=== PATIENT | female | born 1940 | race Hispanic/Latino ===

== ENCOUNTER 2016-07-08 22:41 | Emergency (ER) | payer MEDICARE ==
[2016-07-08] MEDS ORDERED: PROVENTIL IH ONE (23:08)
[2016-07-08] MEDS ORDERED: ATROVENT IH ONE (23:08)
[2016-07-08] MEDS ORDERED: DIOVAN PO ONE (23:28)
--- NOTE | 2016-07-08 23:31 | Emergency Department Report ---
ED Shortness of Breath HPI - General Chief Complaint: Dyspnea/Respdistress Stated Complaint: DIFFICULTY IN BREATHING Time Seen by Provider: 07/08/16 23:00 Source: patient Mode of arrival: Stretcher Limitations: No Limitations - History of Present Illness Initial Comments: This is a 75-year-old female with a long standing history of COPD. She uses albuterol as well as other medications by nebulizer as well as I puffer at home. She has when necessary oxygen available to her home as well. She states anxiety is main trigger for her dyspnea. She states she has been compliant on her inhaled meds. She is not chronically on oral steroids. She denies any chest pains associated with this states she is feeling well earlier in the day. EMS indicated that she had O2 saturation 75% when they arrived on scene and found her quite dyspneic. She quickly improved with treatment and regular as well as steroids. She reports feeling quite comfortable at this time. MD Complaint: shortness of breath -: Gradual Known History Of: COPD Associated Symptoms: denies other symptoms - Related Data Home Medications Medication Instructions Recorded Confirmed Last Taken ALBUTEROL Inhaler [ProAir HFA 1 puff IH QDAY 02/08/13 01/09/14 01/08/14 Inhaler] Carvedilol [Coreg] 3.125 mg PO BID 02/08/13 01/09/14 01/08/14 Esomeprazole Magnesium [NexIUM] 40 mg PO QDAY 02/08/13 01/09/14 01/09/14 Fluticasone/Salmeterol(Nf) [Advair 1 puff PO BID 02/08/13 01/09/14 02/11/13 09: 00 HFA 115-21 mcg] Hydrocodone Bit/Acetaminophen 1 each PO QDAY PRN 02/08/13 01/09/14 01/08/14 [Lortab 7.5-500 mg] Montelukast [Singulair] 10 mg PO QPM 02/08/13 01/09/14 01/08/14 PARoxetine [Paxil] 20 mg PO DAILY 02/08/13 01/09/14 01/08/14 Prednisone [predniSONE 10 mg 10 mg PO QDAY 02/08/13 01/09/14 02/08/13 09:00 (6-Day Pack, 21 Tabs)] Quinapril/Hydrochlorothiazide 1 each PO QDAY 02/08/13 01/09/14 01/08/14 [Quinapril-Hctz 20-12.5 mg Tab] metFORMIN [Glucophage] 500 mg PO BID 02/08/13 01/09/14 01/08/14 Previous Rx's Medication Instructions Recorded Last Taken Type HYDROcodone/APAP 5-325 [[place] 1 each PO Q6HR PRN #20 tablet 04/11/13 Unknown Rx 5/325 mg] Ipratropium/Albuterol Sulfate 1 ampul IH Q8HRT #60 ampul.neb 04/11/13 Unknown Rx [Duoneb 0.5 mg-3 mg/3 ml Soln] Prednisone 40 mg PO QDAY #10 tablet 04/11/13 Unknown Rx Ondansetron [Zofran Odt] 4 mg PO Q6H PRN #10 tab.rapdis 01/09/14 Unknown Rx Sucralfate [Carafate] 1 gm PO Q6HR #40 tablet 01/09/14 Unknown Rx Doxycycline [Vibramycin CAP] 100 mg PO BID #14 capsule 07/08/16 Unknown Rx Prednisone [predniSONE 5 mg (6-Day 5 mg PO .TAPER #1 tab.ds.pk 07/08/16 Unknown Rx Pack, 21 Tabs)] Allergies Allergy/AdvReac Type Severity Reaction Status Date / Time promethazine HCl AdvReac LEG PAIN Verified 07/08/16 22:48 [From Phenergan] ED Review of Systems ROS: Stated complaint: DIFFICULTY IN BREATHING Other details as noted in HPI Comment: All other systems reviewed and negative Constitutional: denies: chills, fever Eyes: denies: eye pain, eye discharge, vision change ENT: denies: ear pain, throat pain Respiratory: shortness of breath, SOB with exertion. 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) Hx COPD: Yes (FOR YRS, USES O2 2L N/C AT BEDTIME) - Surgical History Past Surgical History?: Yes Hx Cholecystectomy: Yes (IN THE ) Hx Breast Surgery: Yes (RIGHT BREAST STERIOTACTIC BX IN 2012) - Social History Smoking Status: Never Smoker Substance Use Type: None - Medications Home Medications: Home Medications Medication Instructions Recorded Confirmed Last Taken Type ALBUTEROL Inhaler [ProAir HFA 1 puff IH QDAY 02/08/13 01/09/14 01/08/14 History Inhaler] Carvedilol [Coreg] 3.125 mg PO BID 02/08/13 01/09/14 01/08/14 History Esomeprazole Magnesium [NexIUM] 40 mg PO QDAY 02/08/13 01/09/14 01/09/14 History Fluticasone/Salmeterol(Nf) [Advair 1 puff PO BID 02/08/13 01/09/14 02/11/13 09: 00 History HFA 115-21 mcg] Hydrocodone Bit/Acetaminophen 1 each PO QDAY PRN 02/08/13 01/09/14 01/08/14 History [Lortab 7.5-500 mg] Montelukast [Singulair] 10 mg PO QPM 02/08/13 01/09/14 01/08/14 History PARoxetine [Paxil] 20 mg PO DAILY 02/08/13 01/09/14 01/08/14 History Prednisone [predniSONE 10 mg 10 mg PO QDAY 02/08/13 01/09/14 02/08/13 09:00 History (6-Day Pack, 21 Tabs)] Quinapril/Hydrochlorothiazide 1 each PO QDAY 02/08/13 01/09/14 01/08/14 History [Quinapril-Hctz 20-12.5 mg Tab] metFORMIN [Glucophage] 500 mg PO BID 02/08/13 01/09/14 01/08/14 History HYDROcodone/APAP 5-325 [[place] 1 each PO Q6HR PRN #20 tablet 04/11/13 01/09/14 Unknown Rx 5/325 mg] Ipratropium/Albuterol Sulfate 1 ampul IH Q8HRT #60 ampul.neb 04/11/13 01/09/14 Unknown Rx [Duoneb 0.5 mg-3 mg/3 ml Soln] Prednisone 40 mg PO QDAY #10 tablet 04/11/13 01/09/14 Unknown Rx Ondansetron [Zofran Odt] 4 mg PO Q6H PRN #10 tab.rapdis 01/09/14 Unknown Rx Sucralfate [Carafate] 1 gm PO Q6HR #40 tablet 01/09/14 Unknown Rx Doxycycline [Vibramycin CAP] 100 mg PO BID #14 capsule 07/08/16 Unknown Rx Prednisone [predniSONE 5 mg (6-Day 5 mg PO .TAPER #1 tab.ds.pk 07/08/16 Unknown Rx Pack, 21 Tabs)] ED Physical Exam - General Limitations: No Limitations General appearance: alert, in no apparent distress - Head Head exam: Present: atraumatic, normocephalic - Eye Eye exam: Present: normal appearance - ENT ENT exam: Present: mucous membranes moist - Neck Neck exam: Present: normal inspection - Respiratory Respiratory exam: Present: decreased breath sounds (mild diminished in base bilat). Absent: respiratory distress, wheezes - Cardiovascular Cardiovascular Exam: Present: regular rate, normal rhythm. Absent: systolic murmur, diastolic murmur, rubs, gallop - GI/Abdominal GI/Abdominal exam: Present: soft, normal bowel sounds. Absent: distended, tenderness - Extremities Exam Extremities exam: Present: normal inspection. Absent: tenderness, pedal edema, calf tenderness - Back Exam Back exam: Present: normal inspection. Absent: tenderness, CVA tenderness (R), CVA tenderness (L) - Neurological Exam Neurological exam: Present: alert, oriented X3, other (nml strength in all extremities) - Psychiatric Psychiatric exam: Present: normal affect, normal mood - Skin Skin exam: Present: warm, dry, intact, normal color. Absent: rash ED Course Vital Signs 07/08/16 07/08/16 07/08/16 23:02 23:03 23:10 Temperature 98.8 F Pulse Rate 85 102 H Respiratory 11 L 21 20 Rate Blood Pressure Blood Pressure 123/64 [Left] O2 Sat by Pulse 97 97 96 Oximetry 07/08/16 07/08/16 07/08/16 23:11 23:15 23:21 Temperature Pulse Rate 101 H 100 H 99 H Respiratory 17 17 Rate Blood Pressure Blood Pressure [Left] O2 Sat by Pulse 94 94 Oximetry 07/08/16 07/08/16 07/08/16 23:31 23:41 23:51 Temperature Pulse Rate 96 H 94 H 95 H Respiratory 29 H 27 H 26 H Rate Blood Pressure 162/51 162/51 158/41 Blood Pressure [Left] O2 Sat by Pulse 94 96 95 Oximetry 07/08/16 23:52 Temperature Pulse Rate 95 H Respiratory Rate Blood Pressure 158/91 Blood Pressure [Left] O2 Sat by Pulse Oximetry - Reevaluation(s) Reevaluation #1: 07/08/16 23:34 Patient is quite comfortable upon my examination of her. She has O2 saturation 95% on room air. She does subjectively feel improved with the O2 nasal cannula though. We will repeat a troponin treatment here. Will obtain some baseline labs and chest x-ray as well. Reevaluation #2: 07/08/16 23:34 ECG at 2316 with normal sinus rhythm at 95 bpm with a normal UT and QRS. Left axis is noted. Is noted to have left anterior fascicular block. LVH is noted. There is some nonspecific ST changes noted as well. No acute STEMI. Reevaluation #3: 07/08/16 23:56 Chest x-ray as noted. Labs are noted as well. White blood cell count is slightly elevated with slight shift. Will place on antibiotic as there may be an exacerbation etiology from an infectious standpoint. Patient is afebrile here however. I suspect likely multifactorial etiology. Regardless patient does not have an oxygen requirement anymore here feel she is safe for home. She also has oxygen available home as well as her medications at home. I did strongly encourage her to consider a medic alert bracelet. I did provide some information on how to obtain this. She will require some help from children to perform this task. She indicates that she can do this. ED Medical Decision Making - Lab Data Result diagrams: 07/08/16 23:16 07/08/16 23:16 - Radiology Data interpreted by me: Mild atelectasis right base. Otherwise mild COPD changes noted. Stable chest. Critical care attestation.: If time is entered above; I have spent that time in minutes in the direct care of this critically ill patient, excluding procedure time. ED Disposition Clinical Impression: COPD with exacerbation Disposition: DISCHARGED TO HOME OR SELFCARE Is pt being admited?: No Does the pt Need Aspirin: No Condition: Stable Instructions: Chronic Obstructive Pulmonary Disease (ED) Additional Instructions: Follow with your doctor later this week regarding your lungs. Return if worsening. Continue to use your inhalers or nebulizers as needed. Use your oxygen as needed. I would encourage you to consider a medic alert bracelet. There are many companies who provide this service. Here are a couple of websites you can have your kids help you review. [email or web address] Prescriptions: Doxycycline [Vibramycin CAP] 100 mg PO BID #14 capsule Prednisone [predniSONE 5 mg (6-Day Pack, 21 Tabs)] 5 mg PO .TAPER #1 tab.ds.pk Time of Disposition: 23:59
[2016-07-08 23:32] LABS: Basophils % (Auto) 0.6 % (0.0-1.8); Eosinophils % (Auto) 0.9 % (0.0-4.3); Hemoglobin 13.5 gm/dl (10.1-14.3); Mean Corpuscular HGB Conc 32 % (30-34); Mean Corpuscular Hemoglobin 27 pg (28-32); Mean Corpuscular Volume 83 fl (79-97); Platelet Count 203 K/mm3 (140-440); Red Blood Count 5.09 M/mm3 (3.65-5.03); Red Cell Distribution Width 16.1 % (13.2-15.2); White Blood Count 11.8 K/mm3 (4.5-11.0)
[2016-07-08 23:49] LABS: Anion Gap 17 mmol/L; BUN/Creatinine Ratio 17.14; Blood Urea Nitrogen 12 mg/dL (7-17); Calcium 9.3 mg/dL (8.4-10.2); Carbon Dioxide 29 mmol/L (22-30); Chloride 92.7 mmol/L (98-107); Glucose 144 mg/dL (65-100); Sodium 135 mmol/L (137-145)
[2016-07-08] MEDS ORDERED: VIBRAMYCIN PO ONE (23:57)
[2016-07-09 00:13] VITALS: BP 122/55
--- NOTE | 2016-07-09 08:56 | XRay Report ---
PORTABLE CHEST INDICATION: Dyspnea. COMPARISON: 04/11/2013 CXR and interval [address] findings. FINDINGS: Portable, frontal chest radiograph demonstrates grossly stable cardiomediastinal silhouette and slight poor inspiration with increased prominence/crowding of increased interstitial markings. Pulmonary arterial hypertension suspected. Slight aortic knob calcifications. No pleural effusions or CHF. Mild biapical scarring or pleural thickening. EKG leads. Demineralized bones with stable chronic right humeral head and neck deformity/fracture. CONCLUSION: No significant acute chest process or interval change, allowing for the difference in technique with various incidental findings, as above. Please correlate. Thank you for the opportunity to participate in this patient's care.
== END 2016-07-09 00:20 | disposition home or self-care (01) ==
LOC: ED 22:41
DX: J44.1 Chronic obstructive pulmonary disease with (acute) exacerbation (principal); I10 Essential (primary) hypertension; E11.9 Type 2 diabetes mellitus without complications; M19.90 Unspecified osteoarthritis, unspecified site; J45.909 Unspecified asthma, uncomplicated; Z88.8 Allergy status to other drugs, medicaments and biological substances
CPT/HCPCS: 36415; 71010; 80048; 85025; 93005; 93010; 94640

== ENCOUNTER 2016-12-19 13:18 | Emergency (ER) | payer MEDICARE ==
[2016-12-19 14:52] LABS: Basophils % (Auto) 1.1 % (0.0-1.8); Eosinophils % (Auto) 3.2 % (0.0-4.3); Hematocrit 43.7 % (30.3-42.9); Mean Corpuscular HGB Conc 32 % (30-34); Mean Corpuscular Hemoglobin 26 pg (28-32); Mean Corpuscular Volume 82 fl (79-97); Platelet Count 230 K/mm3 (140-440); Red Blood Count 5.34 M/mm3 (3.65-5.03); Red Cell Distribution Width 18.1 % (13.2-15.2); White Blood Count 8.3 K/mm3 (4.5-11.0)
--- NOTE | 2016-12-19 15:20 | XRay Report ---
CHEST 2 VIEWS INDICATION: Chest pain. COMPARISON: 07/08/2016 FINDINGS: PA and lateral chest radiographs demonstrate stable cardiomediastinal silhouette. Mild biapical scarring/pleural thickening. Hyperexpanded lungs with slight chronic interstitial prominence. Stable demineralized bones with mild thoracic kyphosis, mild degenerative spurring and chronic right humeral head deformity. CONCLUSION: No acute chest process or significant interval change with possible underlying COPD and few other findings, as above. Thank you for the opportunity to participate in this patient's care.
[2016-12-19 15:22] LABS: Anion Gap 17 mmol/L; Blood Urea Nitrogen 9 mg/dL (7-17); Calcium 9.7 mg/dL (8.4-10.2); Carbon Dioxide 26 mmol/L (22-30); Chloride 94.8 mmol/L (98-107); Glucose 94 mg/dL (65-100); Potassium 4.1 mmol/L (3.6-5.0); Sodium 134 mmol/L (137-145)
[2016-12-19] MEDS ORDERED: PROVENTIL IH ONE ×4 (15:38→22:52)
[2016-12-19] MEDS ORDERED: ATROVENT IH ONE ×2 (15:38→18:30)
[2016-12-19] MEDS ORDERED: DUONEB *Not for PRN Use IH ONE (16:27)
[2016-12-19] MEDS ORDERED: DELTASONE PO ONE (20:47)
[2016-12-19] MEDS ORDERED: TESSALON PERLES PO ONE (20:47)
--- NOTE | 2016-12-19 21:49 | Emergency Department Report ---
ED Shortness of Breath HPI - General Chief Complaint: Chest Pain Stated Complaint: ASTHMA/COPD Time Seen by Provider: 12/19/16 20:16 Source: patient Mode of arrival: Ambulatory Limitations: No Limitations - History of Present Illness Initial Comments: 76-year-old female with a past medical history of asthma, COPD, diabetes, and hypertension presents to the Hospital complaining of shortness of breath. Patient has had dyspnea on exertion for 5-6 months and chronic dry cough. Symptoms worsened today. No complaints of chest pain at this time. The patient is not currently taking steroids. Denies history of previous intubations, fever, calf tenderness, or edema. As per triage patient complained of 5/10 posterior chest pain but denies pain at this time. - Related Data Home Medications Medication Instructions Recorded Confirmed Last Taken ALBUTEROL Inhaler [ProAir HFA 1 puff IH QDAY 02/08/13 01/09/14 01/08/14 Inhaler] Carvedilol [Coreg] 3.125 mg PO BID 02/08/13 01/09/14 01/08/14 Esomeprazole Magnesium [NexIUM] 40 mg PO QDAY 02/08/13 01/09/14 01/09/14 Fluticasone/Salmeterol(Nf) [Advair 1 puff PO BID 02/08/13 01/09/14 02/11/13 09: 00 HFA 115-21 mcg] Hydrocodone Bit/Acetaminophen 1 each PO QDAY PRN 02/08/13 01/09/14 01/08/14 [Lortab 7.5-500 mg] Montelukast [Singulair] 10 mg PO QPM 02/08/13 01/09/14 01/08/14 PARoxetine [Paxil] 20 mg PO DAILY 02/08/13 01/09/14 01/08/14 Prednisone [predniSONE 10 mg 10 mg PO QDAY 02/08/13 01/09/14 02/08/13 09:00 (6-Day Pack, 21 Tabs)] Quinapril/Hydrochlorothiazide 1 each PO QDAY 02/08/13 01/09/14 01/08/14 [Quinapril-Hctz 20-12.5 mg Tab] metFORMIN [Glucophage] 500 mg PO BID 02/08/13 01/09/14 01/08/14 Previous Rx's Medication Instructions Recorded Last Taken Type HYDROcodone/APAP 5-325 [Street 1 each PO Q6HR PRN #20 tablet 04/11/13 Unknown Rx 5/325 mg] Ipratropium/Albuterol Sulfate 1 ampul IH Q8HRT #60 ampul.neb 04/11/13 Unknown Rx [DUONEB *Not for PRN Use*] Prednisone 40 mg PO QDAY #10 tablet 04/11/13 Unknown Rx Ondansetron [Zofran Odt] 4 mg PO Q6H PRN #10 tab.rapdis 01/09/14 Unknown Rx Sucralfate [Carafate] 1 gm PO Q6HR #40 tablet 01/09/14 Unknown Rx Doxycycline [Vibramycin CAP] 100 mg PO BID #14 capsule 07/08/16 Unknown Rx Prednisone [predniSONE 5 mg (6-Day 5 mg PO .TAPER #1 tab.ds.pk 07/08/16 Unknown Rx Pack, 21 Tabs)] Benzonatate [Tessalon Perles] 100 mg PO Q8HR PRN #30 capsule 12/20/16 Unknown Rx Prednisone [predniSONE 10 mg 10 mg PO .TAPER #1 tab.ds.pk 12/20/16 Unknown Rx (6-Day Pack, 21 Tabs)] Allergies Allergy/AdvReac Type Severity Reaction Status Date / Time promethazine HCl AdvReac LEG PAIN Verified 07/08/16 22:48 [From Phenergan] ED Review of Systems ROS: Stated complaint: ASTHMA/COPD Other details as noted in HPI Comment: All other systems reviewed and negative Other: Constitutional: No fevers chills Eyes: No eye pain visual changes ENT: No ear pain or throat pain Neck: Denies pain Respiratory: As per HPI Cardiovascular: Denies palpitations, syncope GI: Denies abdominal pain, nausea, vomiting, diarrhea : Denies dysuria Musculoskeletal: Denies back pain Skin: Denies rash, lesions, erythema Neurologic: Denies headache, numbness, weakness Psychiatric: Denies suicidal ideation, hallucinations ED Past Medical Hx - Past Medical History Hx Hypertension: Yes (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) Hx COPD: Yes (FOR YRS, USES O2 2L N/C AT BEDTIME) - Surgical History Hx Cholecystectomy: Yes (IN THE ) Hx Breast Surgery: Yes (RIGHT BREAST STERIOTACTIC BX IN 2013) - Social History Smoking Status: Never Smoker Substance Use Type: None - Medications Home Medications: Home Medications Medication Instructions Recorded Confirmed Last Taken Type ALBUTEROL Inhaler [ProAir HFA 1 puff IH QDAY 02/08/13 01/09/14 01/08/14 History Inhaler] Carvedilol [Coreg] 3.125 mg PO BID 02/08/13 01/09/14 01/08/14 History Esomeprazole Magnesium [NexIUM] 40 mg PO QDAY 02/08/13 01/09/14 01/09/14 History Fluticasone/Salmeterol(Nf) [Advair 1 puff PO BID 02/08/13 01/09/14 02/11/13 09: 00 History HFA 115-21 mcg] Hydrocodone Bit/Acetaminophen 1 each PO QDAY PRN 02/08/13 01/09/14 01/08/14 History [Lortab 7.5-500 mg] Montelukast [Singulair] 10 mg PO QPM 02/08/13 01/09/14 01/08/14 History PARoxetine [Paxil] 20 mg PO DAILY 02/08/13 01/09/14 01/08/14 History Prednisone [predniSONE 10 mg 10 mg PO QDAY 02/08/13 01/09/14 02/08/13 09:00 History (6-Day Pack, 21 Tabs)] Quinapril/Hydrochlorothiazide 1 each PO QDAY 02/08/13 01/09/14 01/08/14 History [Quinapril-Hctz 20-12.5 mg Tab] metFORMIN [Glucophage] 500 mg PO BID 02/08/13 01/09/14 01/08/14 History HYDROcodone/APAP 5-325 [Street 1 each PO Q6HR PRN #20 tablet 04/11/13 01/09/14 Unknown Rx 5/325 mg] Ipratropium/Albuterol Sulfate 1 ampul IH Q8HRT #60 ampul.neb 04/11/13 01/09/14 Unknown Rx [DUONEB *Not for PRN Use*] Prednisone 40 mg PO QDAY #10 tablet 04/11/13 01/09/14 Unknown Rx Ondansetron [Zofran Odt] 4 mg PO Q6H PRN #10 tab.rapdis 01/09/14 Unknown Rx Sucralfate [Carafate] 1 gm PO Q6HR #40 tablet 01/09/14 Unknown Rx Doxycycline [Vibramycin CAP] 100 mg PO BID #14 capsule 07/08/16 Unknown Rx Prednisone [predniSONE 5 mg (6-Day 5 mg PO .TAPER #1 tab.ds.pk 07/08/16 Unknown Rx Pack, 21 Tabs)] Benzonatate [Tessalon Perles] 100 mg PO Q8HR PRN #30 capsule 12/20/16 Unknown Rx Prednisone [predniSONE 10 mg 10 mg PO .TAPER #1 tab.ds.pk 12/20/16 Unknown Rx (6-Day Pack, 21 Tabs)] ED Physical Exam - General Limitations: No Limitations - Other Other exam information: General: No limitations, patient is alert in no acute distress Head exam: Atraumatic, normocephalic Eyes exam: Normal appearance ENT: Moist mucous membrane, normal oropharynx Neck exam: Normal inspection, full range of motion, no meningismus nontender Respiratory exam: Diminished breath sounds after receiving nebs, no wheezes, rales, or crackles. Frequent dry cough Cardiovascular: Normal rate and rhythm Abdomen: Soft, nondistended, and nontender, with normal bowel sounds, no rebound, or guarding Extremity: Full range of motion normal inspection no deformity Back: Normal Inspection, full range of motion, no tenderness Neurologic: Alert, oriented x3, cranial nerves intact, no motor or sensory deficit Psychiatric: normal affect, normal mood Skin: Warm, dry, intact ED Course Vital Signs 12/19/16 12/19/16 12/19/16 14:29 20:56 21:16 Temperature 98.2 F Pulse Rate 76 Pulse Rate [ 87 92 H Anterior Bilateral Throughout] Respiratory 16 Rate Respiratory 18 20 Rate [Anterior Bilateral Throughout] Blood Pressure 134/84 Blood Pressure [Left] O2 Sat by Pulse 96 Oximetry 12/20/16 00:33 Temperature 98.6 F Pulse Rate 86 Pulse Rate [ Anterior Bilateral Throughout] Respiratory 18 Rate Respiratory Rate [Anterior Bilateral Throughout] Blood Pressure Blood Pressure 140/86 [Left] O2 Sat by Pulse 96 Oximetry - Reevaluation(s) Reevaluation #1: 12/20/16 06:07 Patient received treatment for COPD exacerbation. No acute distress noted. Patient refused admission but states she wanted to stay to the morning. Patient be discharged at this time. ED Medical Decision Making - Lab Data Result diagrams: 12/19/16 14:38 12/19/16 14:38 Lab Results 12/19/16 12/19/16 12/19/16 Range/Units 14:38 14:38 17:08 WBC 8.3 (4.5-11.0) K/mm3 RBC 5.34 H (3.65-5.03) M/mm3 Hgb 14.0 (10.1-14.3) gm/dl Hct 43.7 H (30.3-42.9) % MCV 82 (79-97) fl MCH 26 L (28-32) pg MCHC 32 (30-34) % RDW 18.1 H (13.2-15.2) % Plt Count 230 (140-440) K/mm3 Lymph % (Auto) 17.9 (13.4-35.0) % Haines % (Auto) 6.5 (0.0-7.3) % Eos % (Auto) 3.2 (0.0-4.3) % Baso % (Auto) 1.1 (0.0-1.8) % Lymph # 1.5 (1.2-5.4) K/mm3 Haines # 0.5 (0.0-0.8) K/mm3 Eos # 0.3 (0.0-0.4) K/mm3 Baso # 0.1 (0.0-0.1) K/mm3 Seg Neutrophils % 71.3 H (40.0-70.0) % Seg Neutrophils # 5.9 (1.8-7.7) K/mm3 Sodium 134 L (137-145) mmol/L Potassium 4.1 (3.6-5.0) mmol/L Chloride 94.8 L (98-107) mmol/L Carbon Dioxide 26 (22-30) mmol/L Anion Gap 17 mmol/L BUN 9 (7-17) mg/dL Creatinine 0.6 L (0.7-1.2) mg/dL Estimated GFR > 60 ml/min BUN/Creatinine Ratio 15.00 % Glucose 94 (65-100) mg/dL Calcium 9.7 (8.4-10.2) mg/dL Troponin T < 0.010 < 0.010 (0.00-0.029) ng/mL 12/19/16 Range/Units 21:41 WBC (4.5-11.0) K/mm3 RBC (3.65-5.03) M/mm3 Hgb (10.1-14.3) gm/dl Hct (30.3-42.9) % MCV (79-97) fl MCH (28-32) pg MCHC (30-34) % RDW (13.2-15.2) % Plt Count (140-440) K/mm3 Lymph % (Auto) (13.4-35.0) % Haines % (Auto) (0.0-7.3) % Eos % (Auto) (0.0-4.3) % Baso % (Auto) (0.0-1.8) % Lymph # (1.2-5.4) K/mm3 Haines # (0.0-0.8) K/mm3 Eos # (0.0-0.4) K/mm3 Baso # (0.0-0.1) K/mm3 Seg Neutrophils % (40.0-70.0) % Seg Neutrophils # (1.8-7.7) K/mm3 Sodium (137-145) mmol/L Potassium (3.6-5.0) mmol/L Chloride (98-107) mmol/L Carbon Dioxide (22-30) mmol/L Anion Gap mmol/L BUN (7-17) mg/dL Creatinine (0.7-1.2) mg/dL Estimated GFR ml/min BUN/Creatinine Ratio % Glucose (65-100) mg/dL Calcium (8.4-10.2) mg/dL Troponin T < 0.010 (0.00-0.029) ng/mL - EKG Data -: EKG Interpreted by Me (sinus rhythm rate 69, LVH, re-pole, no STEMI) - EKG Data 12/20/16 06:08 Repeat EKG shows no acute changes. No STEMI - Radiology Data Radiology results: report reviewed (chest x-ray: No acute findings without COPD) - Medical Decision Making Patient treated in the ED for acute COPD exacerbation and declined admission. She will be discharged with COPD exacerbation meds - Differential Diagnosis COPD, asthma, CHF, pneumonia Critical Care Time: No Critical care attestation.: If time is entered above; I have spent that time in minutes in the direct care of this critically ill patient, excluding procedure time. ED Disposition Clinical Impression: COPD exacerbation Disposition: - TO HOME OR SELFCARE Is pt being admited?: No Does the pt Need Aspirin: No Condition: Stable Instructions: Chronic Obstructive Pulmonary Disease (ED) Additional Instructions: Take the medication as prescribed. Follow up with your doctor. Return if symptoms worsen. Prescriptions: Benzonatate [Tessalon Perles] 100 mg PO Q8HR PRN #30 capsule PRN Reason: Cough Prednisone [predniSONE 10 mg (6-Day Pack, 21 Tabs)] 10 mg PO .TAPER #1 tab.ds.pk Referrals: HEIDY WATSON MD [Primary Care Provider] - 2-3 Days Time of Disposition: 06:10
[2016-12-19] MEDS ORDERED: MAGNESIUM SULFATE 2GM/50ML 2 GM/50 ML BAG IV ONE (22:51)
[2016-12-20 06:09] VITALS: BP 130/78
== END 2016-12-20 06:51 | disposition home or self-care (01) ==
LOC: ED 13:18
DX: J44.1 Chronic obstructive pulmonary disease with (acute) exacerbation (principal); I10 Essential (primary) hypertension; E11.9 Type 2 diabetes mellitus without complications; M19.90 Unspecified osteoarthritis, unspecified site; Z88.8 Allergy status to other drugs, medicaments and biological substances
CPT/HCPCS: 36415; 71020; 80048; 84484; 85025; 93005; 93010; 94640; 96365; 99285; J3475; J7512

== ENCOUNTER 2017-01-10 17:02 | Emergency (ER) | payer MEDICARE ==
[2017-01-10 19:03] LABS: Mean Corpuscular HGB Conc 33 % (30-34); Mean Corpuscular Hemoglobin 27 pg (28-32); Mean Corpuscular Volume 81 fl (79-97); Platelet Count 239 K/mm3 (140-440); Red Cell Distribution Width 16.8 % (13.2-15.2); White Blood Count 11.8 K/mm3 (4.5-11.0)
[2017-01-10 19:13] LABS: Alanine Aminotransferase 15 units/L (7-56); Albumin 3.8 g/dL (3.9-5); Alkaline Phosphatase 102 units/L (35-129); Anion Gap 17 mmol/L; BUN/Creatinine Ratio 18; Blood Urea Nitrogen 11 mg/dL (7-17); Calcium 9.5 mg/dL (8.4-10.2); Carbon Dioxide 27 mmol/L (22-30); Glucose 138 mg/dL (65-100); Lipase 42 units/L (13-60); Sodium 137 mmol/L (137-145); Total Protein 7.5 g/dL (6.3-8.2)
[2017-01-10 19:14] LABS: INR 1.07 (0.87-1.13)
[2017-01-10 19:20] LABS: Creatine Kinase 71 units/L (30-135); Creatine Kinase MB 2.9 ng/mL (0.0-4.0)
[2017-01-10] MEDS ORDERED: PROVENTIL IH ONE (19:47)
[2017-01-10] MEDS ORDERED: ATROVENT IH ONE (19:47)
[2017-01-10 20:01] LABS: Basophils % (Manual) 0 % (0.0-1.8); Blastocytes % (Manual) 0 %; Eosinophils % (Manual) 0 % (0.0-4.3); Total Cells Counted Percent 0
[2017-01-10 20:02] LABS: Diff Status Complete; Ovalocytes Few
--- NOTE | 2017-01-10 20:56 | XRay Report ---
FINAL REPORT PROCEDURE: Chest. TECHNIQUE: Portable AP upright view. HISTORY: Dyspnea. COMPARISON: No prior studies are available for comparison. FINDINGS: The heart size is mildly enlarged. The lungs are clear and mildly hyperinflated. There are no pleural effusions. The soft tissues are unremarkable. There is an old fracture of the right humeral head. This fracture appears ununited and the humeral head is severely deformed. IMPRESSION: Mild cardiomegaly and mild COPD. Chronic ununited right humeral head fracture.
--- NOTE | 2017-01-10 22:32 | Emergency Department Report ---
ED Shortness of Breath HPI - General Chief Complaint: Dyspnea/Respdistress Stated Complaint: LYNDA Time Seen by Provider: 01/10/17 19:41 Source: EMS Mode of arrival: Stretcher Limitations: No Limitations - History of Present Illness Initial Comments: 76-year-old female with a past medical history asthma, COPD (O2 at night), diabetes, and hypertension presents with complaints of shortness of breath since 3:00 today. Patient received solumdrol, magnesium, and albuterol 5 mg prior to arrival with some improvement. Patient complains of chronic unchanged cough occasionally productive. She denies chest pain, fever, calf tenderness, or edema. Last ED visit was one month ago and treated for the same. 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 Wesley - Related Data Home Medications Medication Instructions Recorded Confirmed Last Taken ALBUTEROL Inhaler [ProAir HFA 1 puff IH QDAY 02/08/13 01/09/14 01/08/14 Inhaler] Carvedilol [Coreg] 3.125 mg PO BID 02/08/13 01/09/14 01/08/14 Esomeprazole Magnesium [NexIUM] 40 mg PO QDAY 02/08/13 01/09/14 01/09/14 Fluticasone/Salmeterol(Nf) [Advair 1 puff PO BID 02/08/13 01/09/14 02/11/13 09: 00 HFA 115-21 mcg] Hydrocodone Bit/Acetaminophen 1 each PO QDAY PRN 02/08/13 01/09/14 01/08/14 [Lortab 7.5-500 mg] Montelukast [Singulair] 10 mg PO QPM 02/08/13 01/09/14 01/08/14 PARoxetine [Paxil] 20 mg PO DAILY 02/08/13 01/09/14 01/08/14 Prednisone [predniSONE 10 mg 10 mg PO QDAY 02/08/13 01/09/14 02/08/13 09:00 (6-Day Pack, 21 Tabs)] Quinapril/Hydrochlorothiazide 1 each PO QDAY 02/08/13 01/09/14 01/08/14 [Quinapril-Hctz 20-12.5 mg Tab] metFORMIN [Glucophage] 500 mg PO BID 02/08/13 01/09/14 01/08/14 Previous Rx's Medication Instructions Recorded Last Taken Type HYDROcodone/APAP 5-325 [Kinsley 1 each PO Q6HR PRN #20 tablet 04/11/13 Unknown Rx 5/325 mg] Ipratropium/Albuterol Sulfate 1 ampul IH Q8HRT #60 ampul.neb 04/11/13 Unknown Rx [DUONEB *Not for PRN Use*] Prednisone 40 mg PO QDAY #10 tablet 04/11/13 Unknown Rx Ondansetron [Zofran Odt] 4 mg PO Q6H PRN #10 tab.rapdis 01/09/14 Unknown Rx Sucralfate [Carafate] 1 gm PO Q6HR #40 tablet 01/09/14 Unknown Rx Doxycycline [Vibramycin CAP] 100 mg PO BID #14 capsule 07/08/16 Unknown Rx Prednisone [predniSONE 5 mg (6-Day 5 mg PO .TAPER #1 tab.ds.pk 07/08/16 Unknown Rx Pack, 21 Tabs)] Benzonatate [Tessalon Perles] 100 mg PO Q8HR PRN #30 capsule 12/20/16 Unknown Rx Prednisone [predniSONE 10 mg 10 mg PO .TAPER #1 tab.ds.pk 12/20/16 Unknown Rx (6-Day Pack, 21 Tabs)] Prednisone [predniSONE 10 mg 10 mg PO .TAPER #1 tab.ds.pk 01/10/17 Unknown Rx (6-Day Pack, 21 Tabs)] Allergies Allergy/AdvReac Type Severity Reaction Status Date / Time promethazine HCl AdvReac LEG PAIN Verified 07/08/16 22:48 [From Phenergan] ED Review of Systems ROS: Stated complaint: LYNDA Other details as noted in HPI Comment: All other systems reviewed and negative Other: Constitutional: No fevers chills Eyes: No eye pain visual changes ENT: No ear pain or throat pain Neck: Denies pain Respiratory: As her hpi Cardiovascular: Denies chest pain, palpitations, syncope GI: Denies abdominal pain, nausea, vomiting, diarrhea : Denies dysuria Musculoskeletal: Denies back pain Skin: Denies rash, lesions, erythema Neurologic: Denies headache, numbness, weakness Psychiatric: Denies suicidal ideation, hallucinations ED Past Medical Hx - Past Medical History Hx Hypertension: Yes (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 HELLER- MAILROOM ASSISTANT) Hx Diabetes: Yes (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 BAILEY- SUPERVISOR STAGE CARPENTRY) Hx COPD: Yes (FOR YRS, USES O2 2L N/C AT BEDTIME) - Surgical History Hx Cholecystectomy: Yes (IN THE ) Hx Breast Surgery: Yes (RIGHT BREAST STERIOTACTIC BX IN 2013) - Social History Smoking Status: Never Smoker Substance Use Type: None - Medications Home Medications: Home Medications Medication Instructions Recorded Confirmed Last Taken Type ALBUTEROL Inhaler [ProAir HFA 1 puff IH QDAY 02/08/13 01/09/14 01/08/14 History Inhaler] Carvedilol [Coreg] 3.125 mg PO BID 02/08/13 01/09/14 01/08/14 History Esomeprazole Magnesium [NexIUM] 40 mg PO QDAY 02/08/13 01/09/14 01/09/14 History Fluticasone/Salmeterol(Nf) [Advair 1 puff PO BID 02/08/13 01/09/14 02/11/13 09: 00 History HFA 115-21 mcg] Hydrocodone Bit/Acetaminophen 1 each PO QDAY PRN 02/08/13 01/09/14 01/08/14 History [Lortab 7.5-500 mg] Montelukast [Singulair] 10 mg PO QPM 02/08/13 01/09/14 01/08/14 History PARoxetine [Paxil] 20 mg PO DAILY 02/08/13 01/09/14 01/08/14 History Prednisone [predniSONE 10 mg 10 mg PO QDAY 02/08/13 01/09/14 02/08/13 09:00 History (6-Day Pack, 21 Tabs)] Quinapril/Hydrochlorothiazide 1 each PO QDAY 02/08/13 01/09/14 01/08/14 History [Quinapril-Hctz 20-12.5 mg Tab] metFORMIN [Glucophage] 500 mg PO BID 02/08/13 01/09/14 01/08/14 History HYDROcodone/APAP 5-325 [Kinsley 1 each PO Q6HR PRN #20 tablet 04/11/13 01/09/14 Unknown Rx 5/325 mg] Ipratropium/Albuterol Sulfate 1 ampul IH Q8HRT #60 ampul.neb 04/11/13 01/09/14 Unknown Rx [DUONEB *Not for PRN Use*] Prednisone 40 mg PO QDAY #10 tablet 04/11/13 01/09/14 Unknown Rx Ondansetron [Zofran Odt] 4 mg PO Q6H PRN #10 tab.rapdis 01/09/14 Unknown Rx Sucralfate [Carafate] 1 gm PO Q6HR #40 tablet 01/09/14 Unknown Rx Doxycycline [Vibramycin CAP] 100 mg PO BID #14 capsule 07/08/16 Unknown Rx Prednisone [predniSONE 5 mg (6-Day 5 mg PO .TAPER #1 tab.ds.pk 07/08/16 Unknown Rx Pack, 21 Tabs)] Benzonatate [Tessalon Perles] 100 mg PO Q8HR PRN #30 capsule 12/20/16 Unknown Rx Prednisone [predniSONE 10 mg 10 mg PO .TAPER #1 tab.ds.pk 12/20/16 Unknown Rx (6-Day Pack, 21 Tabs)] Prednisone [predniSONE 10 mg 10 mg PO .TAPER #1 tab.ds.pk 01/10/17 Unknown Rx (6-Day Pack, 21 Tabs)] ED Physical Exam - General Limitations: No Limitations - Other Other exam information: General: No limitations, patient is alert in no acute distress Head exam: Atraumatic, normocephalic Eyes exam: Normal appearance, pupils equal reactive to light, extraocular movements intact ENT: Moist mucous membrane, normal oropharynx Neck exam: Normal inspection, full range of motion, no meningismus nontender Respiratory exam: Bilateral expiratory wheezing, no tachypnea or accessory muscle use Cardiovascular: Normal rate and rhythm, normal heart sounds Abdomen: Soft, nondistended, and nontender, with normal bowel sounds, no rebound, or guarding Extremity: Full range of motion normal inspection no deformity, no calf tenderness or edema Back: Normal Inspection, full range of motion, no tenderness Neurologic: Alert, oriented x3, cranial nerves intact, no motor or sensory deficit Psychiatric: normal affect, normal mood Skin: Warm, dry, intact ED Course Vital Signs 01/10/17 01/10/17 01/10/17 18:09 19:43 20:03 Temperature 99.3 F 98.5 F Pulse Rate 78 91 H Pulse Rate [ 88 Bilateral] Respiratory 18 18 Rate Respiratory 18 Rate [Bilateral ] Blood Pressure 152/89 Blood Pressure 153/83 [Left] O2 Sat by Pulse 96 97 Oximetry 01/10/17 01/10/17 01/10/17 21:12 21:40 22:44 Temperature 98.3 F Pulse Rate 105 H 100 H Pulse Rate [ 93 H Bilateral] Respiratory 18 18 Rate Respiratory 18 Rate [Bilateral ] Blood Pressure Blood Pressure 91/71 112/67 [Left] O2 Sat by Pulse 98 96 Oximetry - Reevaluation(s) Reevaluation #1: 01/10/17 22:39 After additional albuterol and Atrovent patient is improved and currently wheeze free. She feels well enough to go home ED Medical Decision Making - Lab Data Result diagrams: 01/10/17 18:45 01/10/17 18:45 Lab Results 01/10/17 01/10/17 01/10/17 Range/Units 18:45 18:45 18:45 WBC 11.8 H (4.5-11.0) K/mm3 RBC 5.30 H (3.65-5.03) M/mm3 Hgb 14.0 (10.1-14.3) gm/dl Hct 43.0 H (30.3-42.9) % MCV 81 (79-97) fl MCH 27 L (28-32) pg MCHC 33 (30-34) % RDW 16.8 H (13.2-15.2) % Plt Count 239 (140-440) K/mm3 Add Manual Diff Complete Total Counted 100 Seg Neutrophils % Va Underwriter Seg Neuts % (Manual) 99.0 H (40.0-70.0) % Band Neutrophils % 0 % Lymphocytes % (Manual) 1.0 L (13.4-35.0) % Reactive Lymphs % (Man) 0 % Monocytes % (Manual) 0 (0.0-7.3) % Eosinophils % (Manual) 0 (0.0-4.3) % Basophils % (Manual) 0 (0.0-1.8) % Metamyelocytes % 0 % Myelocytes % 0 % Promyelocytes % 0 % Blast Cells % 0 % Nucleated RBC % Not Reportable Seg Neutrophils # Man 11.7 H (1.8-7.7) K/mm3 Band Neutrophils # 0.0 K/mm3 Lymphocytes # (Manual) 0.1 L (1.2-5.4) K/mm3 Abs React Lymphs (Man) 0.0 K/mm3 Monocytes # (Manual) 0.0 (0.0-0.8) K/mm3 Eosinophils # (Manual) 0.0 (0.0-0.4) K/mm3 Basophils # (Manual) 0.0 (0.0-0.1) K/mm3 Metamyelocytes # 0.0 K/mm3 Myelocytes # 0.0 K/mm3 Promyelocytes # 0.0 K/mm3 Blast Cells # 0.0 K/mm3 WBC Morphology Not Reportable Hypersegmented Neuts Not Reportable Hyposegmented Neuts Not Reportable Hypogranular Neuts Not Reportable Smudge Cells Not Reportable Toxic Granulation Not Reportable Toxic Vacuolation Not Reportable Dohle Bodies Not Reportable Pelger-Huet Anomaly Not Reportable Serena Rods Not Reportable Platelet Estimate Appears normal Clumped Platelets Not Reportable Plt Clumps, EDTA Not Reportable Large Platelets Not Reportable Giant Platelets Not Reportable Platelet Satelliting Not Reportable Plt Morphology Comment Not Reportable RBC Morphology Not Reportable Dimorphic RBCs Not Reportable Polychromasia Not Reportable Hypochromasia Not Reportable Poikilocytosis Not Reportable Anisocytosis Not Reportable Microcytosis Not Reportable Macrocytosis Not Reportable Spherocytes Not Reportable Pappenheimer Bodies Not Reportable Sickle Cells Not Reportable Target Cells Not Reportable Tear Drop Cells Not Reportable Ovalocytes Few Helmet Cells Not Reportable Cerrato-[place] Bodies Not Reportable [place] Rings Not Reportable [place] Cells Not Reportable Bite Cells Not Reportable Crenated Cell Not Reportable Elliptocytes Not Reportable Acanthocytes (Spur) Not Reportable Rouleaux Not Reportable Hemoglobin C Crystals Not Reportable Schistocytes Not Reportable Malaria parasites Not Reportable Marco Bodies Not Reportable Hem Pathologist Commnt No PT (12.2-14.9) Sec. INR (0.87-1.13) APTT (24.2-36.6) Sec. Sodium 137 (137-145) mmol/L Potassium 4.0 (3.6-5.0) mmol/L Chloride 97.0 L (98-107) mmol/L Carbon Dioxide 27 (22-30) mmol/L Anion Gap 17 mmol/L BUN 11 (7-17) mg/dL Creatinine 0.6 L (0.7-1.2) mg/dL Estimated GFR > 60 ml/min BUN/Creatinine Ratio 18 % Glucose 138 H (65-100) mg/dL Lactic Acid 0.90 (0.7-2.0) mmol/L Calcium 9.5 (8.4-10.2) mg/dL Magnesium 2.90 H (1.7-2.3) mg/dL Total Bilirubin 0.40 (0.1-1.2) mg/dL AST 22 (5-40) units/L ALT 15 (7-56) units/L Alkaline Phosphatase 102 (35-129) units/L Total Creatine Kinase (30-135) units/L CK-MB (CK-2) (0.0-4.0) ng/mL CK-MB (CK-2) Rel Index (0-4) Troponin T (0.00-0.029) ng/mL Total Protein 7.5 (6.3-8.2) g/dL Albumin 3.8 L (3.9-5) g/dL Albumin/Globulin Ratio 1.0 % Lipase 42 (13-60) units/L 01/10/17 01/10/17 Range/Units 18:45 18:45 WBC (4.5-11.0) K/mm3 RBC (3.65-5.03) M/mm3 Hgb (10.1-14.3) gm/dl Hct (30.3-42.9) % MCV (79-97) fl MCH (28-32) pg MCHC (30-34) % RDW (13.2-15.2) % Plt Count (140-440) K/mm3 Add Manual Diff Total Counted Seg Neutrophils % Seg Neuts % (Manual) (40.0-70.0) % Band Neutrophils % % Lymphocytes % (Manual) (13.4-35.0) % Reactive Lymphs % (Man) % Monocytes % (Manual) (0.0-7.3) % Eosinophils % (Manual) (0.0-4.3) % Basophils % (Manual) (0.0-1.8) % Metamyelocytes % % Myelocytes % % Promyelocytes % % Blast Cells % % Nucleated RBC % Seg Neutrophils # Man (1.8-7.7) K/mm3 Band Neutrophils # K/mm3 Lymphocytes # (Manual) (1.2-5.4) K/mm3 Abs React Lymphs (Man) K/mm3 Monocytes # (Manual) (0.0-0.8) K/mm3 Eosinophils # (Manual) (0.0-0.4) K/mm3 Basophils # (Manual) (0.0-0.1) K/mm3 Metamyelocytes # K/mm3 Myelocytes # K/mm3 Promyelocytes # K/mm3 Blast Cells # K/mm3 WBC Morphology Hypersegmented Neuts Hyposegmented Neuts Hypogranular Neuts Smudge Cells Toxic Granulation Toxic Vacuolation Dohle Bodies Pelger-Huet Anomaly Serena Rods Platelet Estimate Clumped Platelets Plt Clumps, EDTA Large Platelets Giant Platelets Platelet Satelliting Plt Morphology Comment RBC Morphology Dimorphic RBCs Polychromasia Hypochromasia Poikilocytosis Anisocytosis Microcytosis Macrocytosis Spherocytes Pappenheimer Bodies Sickle Cells Target Cells Tear Drop Cells Ovalocytes Helmet Cells Cerrato-[place] Bodies [place] Rings [place] Cells Bite Cells Crenated Cell Elliptocytes Acanthocytes (Spur) Rouleaux Hemoglobin C Crystals Schistocytes Malaria parasites Marco Bodies Hem Pathologist Commnt PT 14.4 (12.2-14.9) Sec. INR 1.07 (0.87-1.13) APTT 31.0 (24.2-36.6) Sec. Sodium (137-145) mmol/L Potassium (3.6-5.0) mmol/L Chloride (98-107) mmol/L Carbon Dioxide (22-30) mmol/L Anion Gap mmol/L BUN (7-17) mg/dL Creatinine (0.7-1.2) mg/dL Estimated GFR ml/min BUN/Creatinine Ratio % Glucose (65-100) mg/dL Lactic Acid (0.7-2.0) mmol/L Calcium (8.4-10.2) mg/dL Magnesium (1.7-2.3) mg/dL Total Bilirubin (0.1-1.2) mg/dL AST (5-40) units/L ALT (7-56) units/L Alkaline Phosphatase (35-129) units/L Total Creatine Kinase 71 (30-135) units/L CK-MB (CK-2) 2.9 (0.0-4.0) ng/mL CK-MB (CK-2) Rel Index 4.0 (0-4) Troponin T < 0.010 (0.00-0.029) ng/mL Total Protein (6.3-8.2) g/dL Albumin (3.9-5) g/dL Albumin/Globulin Ratio % Lipase (13-60) units/L - EKG Data -: EKG Interpreted by Me EKG shows normal: sinus rhythm (76) Rate: normal - EKG Data When compared to previous EKG there are: previous EKG unavailable - Radiology Data Radiology results: report reviewed (cxr: copd, chronic right humeral fxt, mild cardiomegaly) - Medical Decision Making plan to discharge patient home on steroids and to continue neb treatments at home - Differential Diagnosis COPD, asthma, bronchitis, pneumonia Critical Care Time: No Critical care attestation.: If time is entered above; I have spent that time in minutes in the direct care of this critically ill patient, excluding procedure time. ED Disposition Clinical Impression: COPD exacerbation Disposition: DC-01 TO HOME OR SELFCARE Is pt being admited?: No Condition: Stable Instructions: Chronic Obstructive Pulmonary Disease (ED) Additional Instructions: His ramp when she follow up with her boiler cleaner for further management and adjustment of your medications. Please return if symptoms worsen. Prescriptions: Prednisone [predniSONE 10 mg (6-Day Pack, 21 Tabs)] 10 mg PO .TAPER #1 tab.ds.pk Referrals: PRIMARY CARE, [Primary Care Provider] - 3-5 Days JIM BAILEY MD [Staff Physician] - 3-5 Days Time of Disposition: 22:42
[2017-01-10 22:45] VITALS: BP 112/67
[2017-01-10] MEDS ORDERED: DELTASONE PO ONE (23:42)
== END 2017-01-11 00:24 | disposition home or self-care (01) ==
LOC: ED 17:02
DX: J44.1 Chronic obstructive pulmonary disease with (acute) exacerbation (principal); I10 Essential (primary) hypertension; E11.9 Type 2 diabetes mellitus without complications; M19.90 Unspecified osteoarthritis, unspecified site; Z90.49 Acquired absence of other specified parts of digestive tract
CPT/HCPCS: 36415; 71010; 80053; 82140; 82550; 82553; 83690; 83735; 84484; 85007; 85025; 85610; 85730; 93005; 93010; 94644; 99285; J7512

== ENCOUNTER 2017-06-17 13:34 | Emergency (ER) | payer MEDICARE ==
[2017-06-17 14:12] VITALS: BP 151/88
[2017-06-17] MEDS ORDERED: PROVENTIL IH ONE ×2 (15:46→15:50)
[2017-06-17] MEDS ORDERED: TESSALON PERLES PO ONE (15:50)
[2017-06-17] MEDS ORDERED: DELTASONE PO ONE (15:50)
--- NOTE | 2017-06-17 16:36 | XRay Report ---
FINAL REPORT EXAM: XR CHEST 1V AP HISTORY: cough TECHNIQUE: AP portable view of the chest PRIORS: CXR 01/10/2017 FINDINGS: Lines, tubes, and devices: N/A Lungs and pleura: Trachea is normal in position. Lungs are clear of infiltrate, pleural effusion, vascular congestion, or pneumothorax. No change. Cardiomediastinal silhouette: The heart is enlarged but stable. Other: Bony structures demonstrate a stable chronic right humeral neck fracture. 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 No change. Stable cardiomegaly.
--- NOTE | 2017-06-17 17:01 | Emergency Department Report ---
ED Asthma HPI - General Chief Complaint: Adult Asthma Stated Complaint: LNYDA Time Seen by Provider: 06/17/17 15:27 Source: EMS Mode of arrival: Wheelchair Limitations: Physical Limitation - History of Present Illness Initial Comments: 76-year-old female with past medical history of COPD and asthma comes in today via EMS for wheezing. Patient denies any fever or chills or nausea and vomiting. She reports that she is followed by a lung specialist as well as her primary care provider. Patient is on several asthmatic medications. She has allergy to promethazine. MD Complaint: "asthma attack", wheezing Severity: moderate Context: none known Associated Symptoms: none Treatments Prior to Arrival: inhaled bronchodilator - Related Data Home Medications Medication Instructions Recorded Confirmed Last Taken Carvedilol [Coreg] 3.125 mg PO BID 02/08/13 01/09/14 01/08/14 Esomeprazole Magnesium [NexIUM] 40 mg PO QDAY 02/08/13 01/09/14 01/09/14 Fluticasone/Salmeterol(Nf) [Advair 1 puff PO BID 02/08/13 01/09/14 02/11/13 09: 00 HFA 115-21 mcg] Hydrocodone Bit/Acetaminophen 1 each PO QDAY PRN 02/08/13 01/09/14 01/08/14 [Lortab 7.5-500 mg] Montelukast [Singulair] 10 mg PO QPM 02/08/13 01/09/14 01/08/14 PARoxetine [Paxil] 20 mg PO DAILY 02/08/13 01/09/14 01/08/14 Prednisone [predniSONE 10 mg 10 mg PO QDAY 02/08/13 01/09/14 02/08/13 09:00 (6-Day Pack, 21 Tabs)] Quinapril/Hydrochlorothiazide 1 each PO QDAY 02/08/13 01/09/14 01/08/14 [Quinapril-Hctz 20-12.5 mg Tab] metFORMIN [Glucophage] 500 mg PO BID 02/08/13 01/09/14 01/08/14 Previous Rx's Medication Instructions Recorded Last Taken Type HYDROcodone/APAP 5-325 [Mobridge 1 each PO Q6HR PRN #20 tablet 04/11/13 Unknown Rx 5/325 mg] Ipratropium/Albuterol Sulfate 1 ampul IH Q8HRT #60 ampul.neb 04/11/13 Unknown Rx [DUONEB *Not for PRN Use*] Prednisone 40 mg PO QDAY #10 tablet 04/11/13 Unknown Rx Ondansetron [Zofran Odt] 4 mg PO Q6H PRN #10 tab.rapdis 01/09/14 Unknown Rx Sucralfate [Carafate] 1 gm PO Q6HR #40 tablet 01/09/14 Unknown Rx Doxycycline [Vibramycin CAP] 100 mg PO BID #14 capsule 07/08/16 Unknown Rx Prednisone [predniSONE 5 mg (6-Day 5 mg PO .TAPER #1 tab.ds.pk 07/08/16 Unknown Rx Pack, 21 Tabs)] Benzonatate [Tessalon Perles] 100 mg PO Q8HR PRN #30 capsule 12/20/16 Unknown Rx Prednisone [predniSONE 10 mg 10 mg PO .TAPER #1 tab.ds.pk 12/20/16 Unknown Rx (6-Day Pack, 21 Tabs)] Prednisone [predniSONE 10 mg 10 mg PO .TAPER #1 tab.ds.pk 01/10/17 Unknown Rx (6-Day Pack, 21 Tabs)] ALBUTEROL Inhaler [ProAir HFA 2 puff IH QDAY PRN #1 inha 06/17/17 Unknown Rx Inhaler] methylPREDNISolone [Medrol] 4 mg PO QDAY #1 tab.ds.pk 06/17/17 Unknown Rx Allergies Allergy/AdvReac Type Severity Reaction Status Date / Time promethazine HCl AdvReac LEG PAIN Verified 07/08/16 22:48 [From Phenergan] ED Review of Systems ROS: Stated complaint: LYNDA Other details as noted in HPI Constitutional: denies: chills, fever Eyes: denies: eye pain, eye discharge, vision change ENT: denies: ear pain, throat pain Respiratory: cough, wheezing. denies: shortness of breath Cardiovascular: denies: chest pain, palpitations Endocrine: no symptoms reported Gastrointestinal: denies: abdominal pain, nausea, diarrhea Genitourinary: denies: urgency, dysuria, discharge Musculoskeletal: denies: back pain, joint swelling, arthralgia Skin: denies: rash, lesions Neurological: denies: headache, weakness, paresthesias Psychiatric: denies: anxiety, depression Hematological/Lymphatic: denies: easy bleeding, easy bruising ED Past Medical Hx - Past Medical History Hx Hypertension: Yes (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 BAILEY- COUTURE DRESSMAKER) Hx COPD: Yes (FOR YRS, USES O2 2L N/C AT BEDTIME) - Surgical History Hx Cholecystectomy: Yes (IN THE ) Hx Breast Surgery: Yes (RIGHT BREAST STERIOTACTIC BX IN 2012) - Social History Smoking Status: Never Smoker Substance Use Type: None - Medications Home Medications: Home Medications Medication Instructions Recorded Confirmed Last Taken Type Carvedilol [Coreg] 3.125 mg PO BID 02/08/13 01/09/14 01/08/14 History Esomeprazole Magnesium [NexIUM] 40 mg PO QDAY 02/08/13 01/09/14 01/09/14 History Fluticasone/Salmeterol(Nf) [Advair 1 puff PO BID 02/08/13 01/09/14 02/11/13 09: 00 History HFA 115-21 mcg] Hydrocodone Bit/Acetaminophen 1 each PO QDAY PRN 02/08/13 01/09/14 01/08/14 History [Lortab 7.5-500 mg] Montelukast [Singulair] 10 mg PO QPM 02/08/13 01/09/14 01/08/14 History PARoxetine [Paxil] 20 mg PO DAILY 02/08/13 01/09/14 01/08/14 History Prednisone [predniSONE 10 mg 10 mg PO QDAY 02/08/13 01/09/14 02/08/13 09:00 History (6-Day Pack, 21 Tabs)] Quinapril/Hydrochlorothiazide 1 each PO QDAY 02/08/13 01/09/14 01/08/14 History [Quinapril-Hctz 20-12.5 mg Tab] metFORMIN [Glucophage] 500 mg PO BID 02/08/13 01/09/14 01/08/14 History HYDROcodone/APAP 5-325 [Mobridge 1 each PO Q6HR PRN #20 tablet 04/11/13 01/09/14 Unknown Rx 5/325 mg] Ipratropium/Albuterol Sulfate 1 ampul IH Q8HRT #60 ampul.neb 04/11/13 01/09/14 Unknown Rx [DUONEB *Not for PRN Use*] Prednisone 40 mg PO QDAY #10 tablet 04/11/13 01/09/14 Unknown Rx Ondansetron [Zofran Odt] 4 mg PO Q6H PRN #10 tab.rapdis 01/09/14 Unknown Rx Sucralfate [Carafate] 1 gm PO Q6HR #40 tablet 01/09/14 Unknown Rx Doxycycline [Vibramycin CAP] 100 mg PO BID #14 capsule 07/08/16 Unknown Rx Prednisone [predniSONE 5 mg (6-Day 5 mg PO .TAPER #1 tab.ds.pk 07/08/16 Unknown Rx Pack, 21 Tabs)] Benzonatate [Tessalon Perles] 100 mg PO Q8HR PRN #30 capsule 12/20/16 Unknown Rx Prednisone [predniSONE 10 mg 10 mg PO .TAPER #1 tab.ds.pk 12/20/16 Unknown Rx (6-Day Pack, 21 Tabs)] Prednisone [predniSONE 10 mg 10 mg PO .TAPER #1 tab.ds.pk 01/10/17 Unknown Rx (6-Day Pack, 21 Tabs)] ALBUTEROL Inhaler [ProAir HFA 2 puff IH QDAY PRN #1 inha 06/17/17 Unknown Rx Inhaler] methylPREDNISolone [Medrol] 4 mg PO QDAY #1 tab.ds.pk 06/17/17 Unknown Rx ED Physical Exam - General Limitations: Physical Limitation (wheelchair with oxygen) General appearance: alert, in no apparent distress - Head Head exam: Present: atraumatic, normocephalic - Eye Eye exam: Present: normal appearance - ENT ENT exam: Present: mucous membranes moist - Neck Neck exam: Present: normal inspection - Respiratory Respiratory exam: Present: normal lung sounds bilaterally, wheezes (mild). Absent: respiratory distress - Cardiovascular Cardiovascular Exam: Present: regular rate, normal rhythm. Absent: systolic murmur, diastolic murmur, rubs, gallop - GI/Abdominal GI/Abdominal exam: Present: soft, normal bowel sounds - Extremities Exam Extremities exam: Present: normal inspection - Back Exam Back exam: Present: normal inspection - Neurological Exam Neurological exam: Present: alert, oriented X3 - Psychiatric Psychiatric exam: Present: normal affect, normal mood - Skin Skin exam: Present: warm, dry, intact, normal color. Absent: rash ED Course Vital Signs 06/17/17 06/17/17 06/17/17 14:08 15:54 15:56 Temperature 98.7 F Pulse Rate 94 H Pulse Rate [ 100 H 116 H Anterior Bilateral Throughout] Respiratory 18 Rate Respiratory 18 18 Rate [Anterior Bilateral Throughout] Blood Pressure 151/88 O2 Sat by Pulse 95 Oximetry ED Medical Decision Making - Radiology Data Radiology results: report reviewed Chest x-ray unremarkable - Medical Decision Making Patient has been evaluated by this provider as well as Dr. Khalil in fast track. Patient reports that she feels much better since having her albuterol treatment. Patient reports that she feels her prednisone has helped. Discussed the patient that she needs to follow back up with her public address systems mechanic in her primary care provider. Patient verbalized understanding. Critical care attestation.: If time is entered above; I have spent that time in minutes in the direct care of this critically ill patient, excluding procedure time. ED Disposition Clinical Impression: Asthma attack Qualifiers: Asthma severity: unspecified severity Asthma persistence: unspecified Qualified Code(s): J45.901 - Unspecified asthma with (acute) exacerbation Disposition: DC-01 TO HOME OR SELFCARE Is pt being admited?: No Does the pt Need Aspirin: No Condition: Stable Additional Instructions: Please take prednisone as prescribed. She she sure albuterol inhaler as needed. Please follow-up with her primary care provider as well as her public address systems mechanic. Prescriptions: ALBUTEROL Inhaler [ProAir HFA Inhaler] 2 puff IH QDAY PRN #1 inha PRN Reason: Wheezing methylPREDNISolone [Medrol] 4 mg PO QDAY #1 tab.ds.pk Referrals: PRIMARY CARE,MD [Primary Care Provider] - 3-5 Days your,providers [Other] - 3-5 Days
--- NOTE | 2017-06-17 17:31 | Emergency Department Report ---
Chief Complaint: Adult Asthma Stated Complaint: LYNDA Time Seen by Provider: 06/17/17 15:27 - HPI History of Present Illness: The patient is a 76 yo female presents for evaluation of dyspnea and coughing. The patient has a history of asthma. The patient reports coughing and dyspnea since last night, mild in severity, worse with activity, improved with breathing treatment. She states her symptoms are consistent with previous episodes of asthma exacerbations. The patient denies fever, chest pain, syncope , hemoptysis, unilateral leg swelling, oral contraceptive use, recent immobilization, history of DVT or PE, recent cancer. - Exam Vital Signs: Vital Signs 06/17/17 06/17/17 06/17/17 14:08 15:54 15:56 Temperature 98.7 F Pulse Rate 94 H Pulse Rate [ 100 H 116 H Anterior Bilateral Throughout] Respiratory 18 Rate Respiratory 18 18 Rate [Anterior Bilateral Throughout] Blood Pressure 151/88 O2 Sat by Pulse 95 Oximetry MSE screening note: Focused history and physical exam performed. Due to findings the following was ordered: ED Disposition for MSE Clinical Impression: Asthma attack Disposition: DC- TO HOME OR SELFCARE Condition: Stable Instructions: Asthma (ED) Additional Instructions: Please take prednisone as prescribed. She she sure albuterol inhaler as needed. 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 Prescriptions: ALBUTEROL Inhaler [ProAir HFA Inhaler] 2 puff IH QDAY PRN #1 inha PRN Reason: Wheezing methylPREDNISolone [Medrol] 4 mg PO QDAY #1 tab.ds.pk Referrals: your,providers [Other] - 3-5 Days PRIMARY CARE, [Primary Care Provider] - 3-5 Days
== END 2017-06-17 19:21 | disposition home or self-care (01) ==
LOC: ED 13:34
DX: J45.909 Unspecified asthma, uncomplicated (principal); I10 Essential (primary) hypertension; E11.9 Type 2 diabetes mellitus without complications; M19.90 Unspecified osteoarthritis, unspecified site; Z90.49 Acquired absence of other specified parts of digestive tract
CPT/HCPCS: 71045; 94640; 99284; J7512

== ENCOUNTER 2017-07-31 23:44 | Emergency (ER) | payer MEDICARE ==
[2017-08-01 01:08] LABS: Basophils # (Auto) 0.1 K/mm3 (0.0-0.1); Basophils % (Auto) 0.6 % (0.0-1.8); Eosinophils # (Auto) 0.2 K/mm3 (0.0-0.4); Eosinophils % (Auto) 1.7 % (0.0-4.3); Hematocrit 40.1 % (30.3-42.9); Hemoglobin 13.1 gm/dl (10.1-14.3); Lymphocytes # (Auto) 1.2 K/mm3 (1.2-5.4); Lymphocytes % (Auto) 11.9 % (13.4-35.0); Mean Corpuscular HGB Conc 33 % (30-34); Mean Corpuscular Hemoglobin 27 pg (28-32); Mean Corpuscular Volume 82 fl (79-97); Monocytes # (Auto) 0.6 K/mm3 (0.0-0.8); Monocytes % (Auto) 5.5 % (0.0-7.3); Platelet Count 255 K/mm3 (140-440); Red Blood Count 4.91 M/mm3 (3.65-5.03); Red Cell Distribution Width 15.5 % (13.2-15.2)
--- NOTE | 2017-08-01 01:16 | XRay Report ---
FINAL REPORT EXAM: XR CHEST 1V AP HISTORY: Shortness of breath TECHNIQUE: Single AP portable radiograph of the chest was obtained. PRIORS: Radiographs dated 06/17/2017 FINDINGS: Stable moderate cardiac enlargement. Overlying patient monitoring these are noted. Mild bibasilar opacities. No lobar consolidation, large pleural effusion or pneumothorax. Atherosclerotic vascular disease of the aorta. No acute osseous abnormality identified. IMPRESSION: Stable, moderate enlargement of the cardiac silhouette. No overt findings of congestive heart failure or lobar consolidation.
--- NOTE | 2017-08-01 01:45 | Emergency Department Report ---
ED Shortness of Breath HPI - General Chief Complaint: Dyspnea/Respdistress Stated Complaint: ASTHMA Time Seen by Provider: 08/01/17 00:17 Source: patient, EMS Mode of arrival: Stretcher Limitations: No Limitations - History of Present Illness Initial Comments: Ms. Lloyd is a 76-year-old female with history of COPD. She presents with shortness of breath wheezing and cough at home. She states that she wants to go home and feels much better. I spoke with her daughter Luly by phone phone number [phone]. Luly did not have any other concerns other thans shortness of breath. She has oxygen at home to use as needed 2 L nasal cannula. She normally uses oxygen at night. She denies any pain. She denies fever. She denies any leg swelling. She was given bronchodilator therapy and IV steroids per EMS. MD Complaint: shortness of breath, cough -: Gradual Severity: mild Consistency: now resolved Improves With: bronchodilators Known History Of: COPD - Related Data Home Medications Medication Instructions Recorded Confirmed Last Taken Carvedilol [Coreg] 3.125 mg PO BID 02/08/13 01/09/14 01/08/14 Esomeprazole Magnesium [NexIUM] 40 mg PO QDAY 02/08/13 01/09/14 01/09/14 Fluticasone/Salmeterol(Nf) [Advair 1 puff PO BID 02/08/13 01/09/14 02/11/13 09: 00 HFA 115-21 mcg] Hydrocodone Bit/Acetaminophen 1 each PO QDAY PRN 02/08/13 01/09/14 01/08/14 [Lortab 7.5-500 mg] Montelukast [Singulair] 10 mg PO QPM 02/08/13 01/09/14 01/08/14 PARoxetine [Paxil] 20 mg PO DAILY 02/08/13 01/09/14 01/08/14 Prednisone [predniSONE 10 mg 10 mg PO QDAY 02/08/13 01/09/14 02/08/13 09:00 (6-Day Pack, 21 Tabs)] Quinapril/Hydrochlorothiazide 1 each PO QDAY 02/08/13 01/09/14 01/08/14 [Quinapril-Hctz 20-12.5 mg Tab] metFORMIN [Glucophage] 500 mg PO BID 02/08/13 01/09/14 01/08/14 Previous Rx's Medication Instructions Recorded Last Taken Type HYDROcodone/APAP 5-325 [[place] 1 each PO Q6HR PRN #20 tablet 04/11/13 Unknown Rx 5/325 mg] Ipratropium/Albuterol Sulfate 1 ampul IH Q8HRT #60 ampul.neb 04/11/13 Unknown Rx [DUONEB *Not for PRN Use*] Prednisone 40 mg PO QDAY #10 tablet 04/11/13 Unknown Rx Ondansetron [Zofran Odt] 4 mg PO Q6H PRN #10 tab.rapdis 01/09/14 Unknown Rx Sucralfate [Carafate] 1 gm PO Q6HR #40 tablet 01/09/14 Unknown Rx Doxycycline [Vibramycin CAP] 100 mg PO BID #14 capsule 07/08/16 Unknown Rx Prednisone [predniSONE 5 mg (6-Day 5 mg PO .TAPER #1 tab.ds.pk 07/08/16 Unknown Rx Pack, 21 Tabs)] Benzonatate [Tessalon Perles] 100 mg PO Q8HR PRN #30 capsule 12/20/16 Unknown Rx Prednisone [predniSONE 10 mg 10 mg PO .TAPER #1 tab.ds.pk 12/20/16 Unknown Rx (6-Day Pack, 21 Tabs)] Prednisone [predniSONE 10 mg 10 mg PO .TAPER #1 tab.ds.pk 01/10/17 Unknown Rx (6-Day Pack, 21 Tabs)] ALBUTEROL Inhaler [ProAir HFA 2 puff IH QDAY PRN #1 inha 06/17/17 Unknown Rx Inhaler] methylPREDNISolone [Medrol] 4 mg PO QDAY #1 tab.ds.pk 06/17/17 Unknown Rx Doxycycline [Vibramycin CAP] 100 mg PO Q12HR 7 Days #14 capsule 08/01/17 Unknown Rx Prednisone [predniSONE 10 mg 10 mg PO .TAPER #1 tab.ds.pk 08/01/17 Unknown Rx (6-Day Pack, 21 Tabs)] Allergies Allergy/AdvReac Type Severity Reaction Status Date / Time promethazine HCl AdvReac LEG PAIN Verified 07/08/16 22:48 [From Phenergan] ED Review of Systems ROS: Stated complaint: ASTHMA Other details as noted in HPI Comment: All other systems reviewed and negative Constitutional: denies: fever, malaise Respiratory: cough Cardiovascular: denies: chest pain ED Past Medical Hx - Past Medical History Previous Medical History?: Yes Hx Hypertension: Yes (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) Hx COPD: Yes (FOR YRS, USES O2 2L N/C AT BEDTIME) - Surgical History Past Surgical History?: Yes Hx Cholecystectomy: Yes (IN THE ) Hx Breast Surgery: Yes (RIGHT BREAST STERIOTACTIC BX IN 2012) - Social History Smoking Status: Never Smoker Substance Use Type: None - Medications Home Medications: Home Medications Medication Instructions Recorded Confirmed Last Taken Type Carvedilol [Coreg] 3.125 mg PO BID 02/08/13 01/09/14 01/08/14 History Esomeprazole Magnesium [NexIUM] 40 mg PO QDAY 02/08/13 01/09/14 01/09/14 History Fluticasone/Salmeterol(Nf) [Advair 1 puff PO BID 02/08/13 01/09/14 02/11/13 09: 00 History HFA 115-21 mcg] Hydrocodone Bit/Acetaminophen 1 each PO QDAY PRN 02/08/13 01/09/14 01/08/14 History [Lortab 7.5-500 mg] Montelukast [Singulair] 10 mg PO QPM 02/08/13 01/09/14 01/08/14 History PARoxetine [Paxil] 20 mg PO DAILY 02/08/13 01/09/14 01/08/14 History Prednisone [predniSONE 10 mg 10 mg PO QDAY 02/08/13 01/09/14 02/08/13 09:00 History (6-Day Pack, 21 Tabs)] Quinapril/Hydrochlorothiazide 1 each PO QDAY 02/08/13 01/09/14 01/08/14 History [Quinapril-Hctz 20-12.5 mg Tab] metFORMIN [Glucophage] 500 mg PO BID 02/08/13 01/09/14 01/08/14 History HYDROcodone/APAP 5-325 [[place] 1 each PO Q6HR PRN #20 tablet 04/11/13 01/09/14 Unknown Rx 5/325 mg] Ipratropium/Albuterol Sulfate 1 ampul IH Q8HRT #60 ampul.neb 04/11/13 01/09/14 Unknown Rx [DUONEB *Not for PRN Use*] Prednisone 40 mg PO QDAY #10 tablet 04/11/13 01/09/14 Unknown Rx Ondansetron [Zofran Odt] 4 mg PO Q6H PRN #10 tab.rapdis 01/09/14 Unknown Rx Sucralfate [Carafate] 1 gm PO Q6HR #40 tablet 01/09/14 Unknown Rx Doxycycline [Vibramycin CAP] 100 mg PO BID #14 capsule 07/08/16 Unknown Rx Prednisone [predniSONE 5 mg (6-Day 5 mg PO .TAPER #1 tab.ds.pk 07/08/16 Unknown Rx Pack, 21 Tabs)] Benzonatate [Tessalon Perles] 100 mg PO Q8HR PRN #30 capsule 12/20/16 Unknown Rx Prednisone [predniSONE 10 mg 10 mg PO .TAPER #1 tab.ds.pk 12/20/16 Unknown Rx (6-Day Pack, 21 Tabs)] Prednisone [predniSONE 10 mg 10 mg PO .TAPER #1 tab.ds.pk 01/10/17 Unknown Rx (6-Day Pack, 21 Tabs)] ALBUTEROL Inhaler [ProAir HFA 2 puff IH QDAY PRN #1 inha 06/17/17 Unknown Rx Inhaler] methylPREDNISolone [Medrol] 4 mg PO QDAY #1 tab.ds.pk 06/17/17 Unknown Rx Doxycycline [Vibramycin CAP] 100 mg PO Q12HR 7 Days #14 capsule 08/01/17 Unknown Rx Prednisone [predniSONE 10 mg 10 mg PO .TAPER #1 tab.ds.pk 08/01/17 Unknown Rx (6-Day Pack, 21 Tabs)] ED Physical Exam - General Limitations: No Limitations General appearance: alert, in no apparent distress - Head Head exam: Present: atraumatic, normocephalic - Eye Eye exam: Present: normal appearance - ENT ENT exam: Present: mucous membranes moist - Neck Neck exam: Present: normal inspection - Respiratory Respiratory exam: Present: normal lung sounds bilaterally, wheezes, other ( faint expiratory Wheezes). Absent: respiratory distress, rales, rhonchi - Cardiovascular Cardiovascular Exam: Present: regular rate, normal rhythm, normal heart sounds. Absent: bradycardia, tachycardia, systolic murmur, diastolic murmur, rubs, gallop - GI/Abdominal GI/Abdominal exam: Present: soft, normal bowel sounds. Absent: distended, tenderness, guarding, rebound - Extremities Exam Extremities exam: Present: normal inspection - Back Exam Back exam: Present: normal inspection - Neurological Exam Neurological exam: Present: alert, oriented X3 - Psychiatric Psychiatric exam: Present: normal affect, normal mood - Skin Skin exam: Present: warm, dry, intact, normal color. Absent: rash ED Course Vital Signs 08/01/17 08/01/17 00:07 00:21 Temperature 98.7 F Pulse Rate 101 H Respiratory 19 Rate Blood Pressure 133/60 O2 Sat by Pulse 99 99 Oximetry ED Medical Decision Making - Lab Data Result diagrams: 08/01/17 00:29 Laboratory Results - last 24 hr 08/01/17 00:29 WBC 10.4 RBC 4.91 Hgb 13.1 Hct 40.1 MCV 82 MCH 27 L MCHC 33 RDW 15.5 H Plt Count 255 Lymph % (Auto) 11.9 L Allen % (Auto) 5.5 Eos % (Auto) 1.7 Baso % (Auto) 0.6 Lymph # 1.2 Allen # 0.6 Eos # 0.2 Baso # 0.1 Seg Neutrophils % 80.3 H Seg Neutrophils # 8.4 H Vital Signs - 24 hr 08/01/17 08/01/17 00:07 00:21 Temperature 98.7 F Pulse Rate 101 H Respiratory 19 Rate Blood Pressure 133/60 O2 Sat by Pulse 99 99 Oximetry - Medical Decision Making Ms Lloyd presents with COPD exacerbation. Normal rate 88 beats a minute on EKG She denies any complaints. She feels comfortable. She appears well. NOrmal oxygen saturation on nasal cannula. No infiltrate on chest x-ray. rx: prednisone and doxycycline Critical care attestation.: If time is entered above; I have spent that time in minutes in the direct care of this critically ill patient, excluding procedure time. ED Disposition Clinical Impression: COPD exacerbation Disposition: DC- TO HOME OR SELFCARE Is pt being admited?: No Does the pt Need Aspirin: No Condition: Stable Instructions: Chronic Obstructive Pulmonary Disease (ED) Prescriptions: Doxycycline [Vibramycin CAP] 100 mg PO Q12HR 7 Days #14 capsule Prednisone [predniSONE 10 mg (6-Day Pack, 21 Tabs)] 10 mg PO .TAPER #1 tab.ds.pk Referrals: JAXSON TRIMBLE MD [Primary Care Provider] - 3-5 Days Time of Disposition: 01:46
[2017-08-01 01:49] LABS: BUN/Creatinine Ratio 21; Blood Urea Nitrogen 17 mg/dL (7-17); Calcium 9.2 mg/dL (8.4-10.2); Hemolysis Index 0
[2017-08-01 04:33] VITALS: BP 128/65
== END 2017-08-01 02:35 | disposition home or self-care (01) ==
LOC: ED 23:44
DX: J44.1 Chronic obstructive pulmonary disease with (acute) exacerbation (principal); I10 Essential (primary) hypertension; E11.9 Type 2 diabetes mellitus without complications; M19.90 Unspecified osteoarthritis, unspecified site; Z88.8 Allergy status to other drugs, medicaments and biological substances; Z90.49 Acquired absence of other specified parts of digestive tract
CPT/HCPCS: 36415; 71045; 80048; 85025; 93005; 93010

== ENCOUNTER 2017-08-22 22:57 | Emergency (ER) | payer MEDICARE ==
[2017-08-23 00:08] LABS: Basophils # (Auto) 0.1 K/mm3 (0.0-0.1); Basophils % (Auto) 0.7 % (0.0-1.8); Eosinophils # (Auto) 0.3 K/mm3 (0.0-0.4); Eosinophils % (Auto) 3.1 % (0.0-4.3); Hematocrit 43.9 % (30.3-42.9); Lymphocytes % (Auto) 11.8 % (13.4-35.0); Mean Corpuscular HGB Conc 32 % (30-34); Mean Corpuscular Hemoglobin 27 pg (28-32); Mean Corpuscular Volume 83 fl (79-97); Monocytes # (Auto) 0.5 K/mm3 (0.0-0.8); Monocytes % (Auto) 6.1 % (0.0-7.3); Platelet Count 220 K/mm3 (140-440); Red Cell Distribution Width 15.9 % (13.2-15.2)
--- NOTE | 2017-08-23 00:18 | Emergency Department Report ---
ED Shortness of Breath HPI - General Chief Complaint: Dyspnea/Respdistress Stated Complaint: LYNDA Time Seen by Provider: 08/22/17 23:52 Source: patient, EMS Mode of arrival: Wheelchair Limitations: No Limitations - History of Present Illness Initial Comments: Ms. Lloyd is a 77 yo female with history of COPD who presents with shortness of breath and chest pain. She has dull mild substernal chest pain which began at 2 PM. Chest pain is resolved. Shortness of breath has resolved. She feels fine at this time. She states that sometimes she doesn't get along with her daughter with home she lives. Her daughter is not abusive. She claims that they just "get into it" she states that her daughter is mostly nice. However, her daughter wants her to move around more. MD Complaint: shortness of breath, chest pain -: Gradual, hour(s) (6) Severity: mild Quality: dull (dull nondescript chest pain ) Consistency: now resolved Improves With: bronchodilators Known History Of: COPD - Related Data Home Medications Medication Instructions Recorded Confirmed Last Taken Carvedilol [Coreg] 3.125 mg PO BID 02/08/13 01/09/14 01/08/14 Esomeprazole Magnesium [NexIUM] 40 mg PO QDAY 02/08/13 01/09/14 01/09/14 Fluticasone/Salmeterol(Nf) [Advair 1 puff PO BID 02/08/13 01/09/14 02/11/13 09: 00 HFA 115-21 mcg] Hydrocodone Bit/Acetaminophen 1 each PO QDAY PRN 02/08/13 01/09/14 01/08/14 [Lortab 7.5-500 mg] Montelukast [Singulair] 10 mg PO QPM 02/08/13 01/09/14 01/08/14 PARoxetine [Paxil] 20 mg PO DAILY 02/08/13 01/09/14 01/08/14 Prednisone [predniSONE 10 mg 10 mg PO QDAY 02/08/13 01/09/14 02/08/13 09:00 (6-Day Pack, 21 Tabs)] Quinapril/Hydrochlorothiazide 1 each PO QDAY 02/08/13 01/09/14 01/08/14 [Quinapril-Hctz 20-12.5 mg Tab] metFORMIN [Glucophage] 500 mg PO BID 02/08/13 01/09/14 01/08/14 Previous Rx's Medication Instructions Recorded Last Taken Type HYDROcodone/APAP 5-325 [[place] 1 each PO Q6HR PRN #20 tablet 04/11/13 Unknown Rx 5/325 mg] Ipratropium/Albuterol Sulfate 1 ampul IH Q8HRT #60 ampul.neb 04/11/13 Unknown Rx [DUONEB *Not for PRN Use*] Prednisone 40 mg PO QDAY #10 tablet 04/11/13 Unknown Rx Ondansetron [Zofran Odt] 4 mg PO Q6H PRN #10 tab.rapdis 01/09/14 Unknown Rx Sucralfate [Carafate] 1 gm PO Q6HR #40 tablet 01/09/14 Unknown Rx Doxycycline [Vibramycin CAP] 100 mg PO BID #14 capsule 07/08/16 Unknown Rx Prednisone [predniSONE 5 mg (6-Day 5 mg PO .TAPER #1 tab.ds.pk 07/08/16 Unknown Rx Pack, 21 Tabs)] Benzonatate [Tessalon Perles] 100 mg PO Q8HR PRN #30 capsule 12/20/16 Unknown Rx Prednisone [predniSONE 10 mg 10 mg PO .TAPER #1 tab.ds.pk 12/20/16 Unknown Rx (6-Day Pack, 21 Tabs)] Prednisone [predniSONE 10 mg 10 mg PO .TAPER #1 tab.ds.pk 01/10/17 Unknown Rx (6-Day Pack, 21 Tabs)] ALBUTEROL Inhaler [ProAir HFA 2 puff IH QDAY PRN #1 inha 06/17/17 Unknown Rx Inhaler] methylPREDNISolone [Medrol] 4 mg PO QDAY #1 tab.ds.pk 06/17/17 Unknown Rx Doxycycline [Vibramycin CAP] 100 mg PO Q12HR 7 Days #14 capsule 08/01/17 Unknown Rx Prednisone [predniSONE 10 mg 10 mg PO .TAPER #1 tab.ds.pk 08/01/17 Unknown Rx (6-Day Pack, 21 Tabs)] Prednisone [predniSONE 5 mg (6-Day 5 mg PO .TAPER #1 tab.ds.pk 08/23/17 Unknown Rx Pack, 21 Tabs)] Allergies Allergy/AdvReac Type Severity Reaction Status Date / Time promethazine HCl AdvReac LEG PAIN Verified 08/22/17 23:38 [From Phenergan] ED Review of Systems ROS: Stated complaint: LYNDA Other details as noted in HPI Comment: All other systems reviewed and negative Constitutional: denies: fever, malaise Respiratory: cough Cardiovascular: chest pain ED Past Medical Hx - Past Medical History Hx Hypertension: Yes (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) Hx COPD: Yes (FOR YRS, USES O2 2L N/C AT BEDTIME) - Surgical History Hx Cholecystectomy: Yes (IN THE ) Hx Breast Surgery: Yes (RIGHT BREAST STERIOTACTIC BX IN 2012) - Social History Smoking Status: Never Smoker Substance Use Type: None - Medications Home Medications: Home Medications Medication Instructions Recorded Confirmed Last Taken Type Carvedilol [Coreg] 3.125 mg PO BID 02/08/13 01/09/14 01/08/14 History Esomeprazole Magnesium [NexIUM] 40 mg PO QDAY 02/08/13 01/09/14 01/09/14 History Fluticasone/Salmeterol(Nf) [Advair 1 puff PO BID 02/08/13 01/09/14 02/11/13 09: 00 History HFA 115-21 mcg] Hydrocodone Bit/Acetaminophen 1 each PO QDAY PRN 02/08/13 01/09/14 01/08/14 History [Lortab 7.5-500 mg] Montelukast [Singulair] 10 mg PO QPM 02/08/13 01/09/14 01/08/14 History PARoxetine [Paxil] 20 mg PO DAILY 02/08/13 01/09/14 01/08/14 History Prednisone [predniSONE 10 mg 10 mg PO QDAY 02/08/13 01/09/14 02/08/13 09:00 History (6-Day Pack, 21 Tabs)] Quinapril/Hydrochlorothiazide 1 each PO QDAY 02/08/13 01/09/14 01/08/14 History [Quinapril-Hctz 20-12.5 mg Tab] metFORMIN [Glucophage] 500 mg PO BID 02/08/13 01/09/14 01/08/14 History HYDROcodone/APAP 5-325 [[place] 1 each PO Q6HR PRN #20 tablet 04/11/13 01/09/14 Unknown Rx 5/325 mg] Ipratropium/Albuterol Sulfate 1 ampul IH Q8HRT #60 ampul.neb 04/11/13 01/09/14 Unknown Rx [DUONEB *Not for PRN Use*] Prednisone 40 mg PO QDAY #10 tablet 04/11/13 01/09/14 Unknown Rx Ondansetron [Zofran Odt] 4 mg PO Q6H PRN #10 tab.rapdis 01/09/14 Unknown Rx Sucralfate [Carafate] 1 gm PO Q6HR #40 tablet 01/09/14 Unknown Rx Doxycycline [Vibramycin CAP] 100 mg PO BID #14 capsule 07/08/16 Unknown Rx Prednisone [predniSONE 5 mg (6-Day 5 mg PO .TAPER #1 tab.ds.pk 07/08/16 Unknown Rx Pack, 21 Tabs)] Benzonatate [Tessalon Perles] 100 mg PO Q8HR PRN #30 capsule 12/20/16 Unknown Rx Prednisone [predniSONE 10 mg 10 mg PO .TAPER #1 tab.ds.pk 12/20/16 Unknown Rx (6-Day Pack, 21 Tabs)] Prednisone [predniSONE 10 mg 10 mg PO .TAPER #1 tab.ds.pk 01/10/17 Unknown Rx (6-Day Pack, 21 Tabs)] ALBUTEROL Inhaler [ProAir HFA 2 puff IH QDAY PRN #1 inha 06/17/17 Unknown Rx Inhaler] methylPREDNISolone [Medrol] 4 mg PO QDAY #1 tab.ds.pk 06/17/17 Unknown Rx Doxycycline [Vibramycin CAP] 100 mg PO Q12HR 7 Days #14 capsule 08/01/17 Unknown Rx Prednisone [predniSONE 10 mg 10 mg PO .TAPER #1 tab.ds.pk 08/01/17 Unknown Rx (6-Day Pack, 21 Tabs)] Prednisone [predniSONE 5 mg (6-Day 5 mg PO .TAPER #1 tab.ds.pk 08/23/17 Unknown Rx Pack, 21 Tabs)] ED Physical Exam - General Limitations: No Limitations General appearance: alert, in no apparent distress, other (friendly talkative) - Head Head exam: Present: atraumatic, normocephalic - Eye Eye exam: Present: normal appearance, PERRL, EOMI - ENT ENT exam: Present: mucous membranes moist - Neck Neck exam: Present: normal inspection. Absent: tenderness, meningismus - Respiratory Respiratory exam: Present: normal lung sounds bilaterally. Absent: respiratory distress, wheezes, rales, rhonchi, accessory muscle use, decreased breath sounds - Cardiovascular Cardiovascular Exam: Present: regular rate, normal rhythm, normal heart sounds. Absent: bradycardia, tachycardia, systolic murmur, diastolic murmur, rubs, gallop - GI/Abdominal GI/Abdominal exam: Present: soft, normal bowel sounds. Absent: distended, tenderness, guarding, rebound - Extremities Exam Extremities exam: Present: normal inspection - Back Exam Back exam: Present: normal inspection - Neurological Exam Neurological exam: Present: alert, oriented X3 - Psychiatric Psychiatric exam: Present: normal affect, normal mood - Skin Skin exam: Present: warm, dry, intact, normal color. Absent: rash ED Course Vital Signs 08/22/17 08/22/17 08/22/17 23:34 23:35 23:40 Temperature 99.1 F Pulse Rate 104 H 108 H Pulse Rate [ Posterior Bilateral] Respiratory 22 22 Rate Respiratory Rate [Posterior Bilateral] Blood Pressure 109/69 O2 Sat by Pulse 98 98 Oximetry 08/23/17 08/23/17 08/23/17 00:01 00:16 00:36 Temperature Pulse Rate 95 H 95 H Pulse Rate [ Posterior Bilateral] Respiratory 16 15 Rate Respiratory Rate [Posterior Bilateral] Blood Pressure 169/58 169/58 169/58 O2 Sat by Pulse 99 100 94 Oximetry 08/23/17 08/23/17 08/23/17 00:42 00:46 00:54 Temperature Pulse Rate Pulse Rate [ 102 H 106 H Posterior Bilateral] Respiratory Rate Respiratory 18 18 Rate [Posterior Bilateral] Blood Pressure 169/58 O2 Sat by Pulse 96 Oximetry 08/23/17 08/23/17 08/23/17 01:00 01:16 01:30 Temperature Pulse Rate 97 H 101 H 93 H Pulse Rate [ Posterior Bilateral] Respiratory 14 27 H 20 Rate Respiratory Rate [Posterior Bilateral] Blood Pressure 121/85 121/85 129/62 O2 Sat by Pulse 98 99 97 Oximetry 08/23/17 01:46 Temperature Pulse Rate 92 H Pulse Rate [ Posterior Bilateral] Respiratory 22 Rate Respiratory Rate [Posterior Bilateral] Blood Pressure 121/85 O2 Sat by Pulse 98 Oximetry ED Medical Decision Making - Lab Data Result diagrams: 08/22/17 23:54 08/22/17 23:54 - EKG Data 08/23/17 00:18 EKG obtained 2343 Rate 90 bpm left axis deviation no ST elevation LVH and nonspecific T-wave abnormality - Medical Decision Making Ms. Lloyd presents with mild COPD exacerbation. Nondescript chest pain atypical for ACS. She slept comfortably after only receiving DuoNeb. I prescribed low- dose prednisone taper. Discharged home in stable condition. Critical care attestation.: If time is entered above; I have spent that time in minutes in the direct care of this critically ill patient, excluding procedure time. ED Disposition Clinical Impression: COPD with acute exacerbation Disposition: DC-01 TO HOME OR SELFCARE Is pt being admited?: No Does the pt Need Aspirin: No Condition: Stable Instructions: Chronic Obstructive Pulmonary Disease (ED) Additional Instructions: Please see your primary doctor this upcoming week. Prescriptions: Prednisone [predniSONE 5 mg (6-Day Pack, 21 Tabs)] 5 mg PO .TAPER #1 tab.ds.pk Time of Disposition: 02:28
[2017-08-23] MEDS ORDERED: DUONEB *Not for PRN Use IH ONE ×2 (00:32→02:47)
[2017-08-23] MEDS ORDERED: BABY ASPIRIN PO ONE (00:32)
--- NOTE | 2017-08-23 01:30 | XRay Report ---
FINAL REPORT PROCEDURE: XR CHEST ROUTINE 2V TECHNIQUE: A portable AP chest radiograph was obtained at 08/22/2017 23:45 (EST) . CPT 78136 HISTORY: Shortness of breath COMPARISON: No prior studies are available for comparison. FINDINGS: Heart: Normal. Mediastinum/Vessels: Normal. Lungs/Pleural space: Lungs are expanded. There are mild fibrotic changes at the lung bases. There are no active infiltrates. There is no pleural effusion or pneumothorax.. Bony thorax: No acute osseous abnormality. Life support devices: None. IMPRESSION: There is no acute cardiopulmonary abnormality..
[2017-08-23 01:44] LABS: BUN/Creatinine Ratio 7; Blood Urea Nitrogen 5 mg/dL (7-17); Calcium 9.5 mg/dL (8.4-10.2); Hemolysis Index 7
[2017-08-23 04:16] VITALS: BP 121/54
== END 2017-08-23 04:17 | disposition home or self-care (01) ==
LOC: ED 22:57
DX: J44.1 Chronic obstructive pulmonary disease with (acute) exacerbation (principal); I10 Essential (primary) hypertension; E11.9 Type 2 diabetes mellitus without complications; M19.90 Unspecified osteoarthritis, unspecified site; Z90.49 Acquired absence of other specified parts of digestive tract; Z88.8 Allergy status to other drugs, medicaments and biological substances
CPT/HCPCS: 36415; 71045; 71046; 80048; 85025; 93005; 93010; 94640

== ENCOUNTER 2017-09-01 21:09 | Emergency (ER) | payer MEDICARE ==
[2017-09-01 21:59] LABS: Basophils # (Auto) 0.1 K/mm3 (0.0-0.1); Basophils % (Auto) 0.8 % (0.0-1.8); Eosinophils # (Auto) 0.3 K/mm3 (0.0-0.4); Eosinophils % (Auto) 4.5 % (0.0-4.3); Hematocrit 40.8 % (30.3-42.9); Hemoglobin 13.6 gm/dl (10.1-14.3); Lymphocytes # (Auto) 1.7 K/mm3 (1.2-5.4); Lymphocytes % (Auto) 22.4 % (13.4-35.0); Mean Corpuscular HGB Conc 33 % (30-34); Mean Corpuscular Hemoglobin 27 pg (28-32); Mean Corpuscular Volume 82 fl (79-97); Monocytes # (Auto) 0.6 K/mm3 (0.0-0.8); Monocytes % (Auto) 7.9 % (0.0-7.3); Platelet Count 213 K/mm3 (140-440); Red Blood Count 4.98 M/mm3 (3.65-5.03); Red Cell Distribution Width 16.2 % (13.2-15.2)
[2017-09-01 22:33] LABS: BUN/Creatinine Ratio 13; Blood Urea Nitrogen 9 mg/dL (7-17); Hemolysis Index 5
--- NOTE | 2017-09-01 22:39 | XRay Report ---
FINAL REPORT EXAM: XR CHEST 1V AP HISTORY: Shortness of breath TECHNIQUE: upright single view chest PRIORS: Comparison is dated August 22, 2017 FINDINGS: Cardiac and mediastinal contours are unremarkable. No focal pulmonary infiltrate is identified. No pleural fluid collection seen. Pulmonary vasculature is unremarkable. No change from prior exam. 

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
[2017-09-01] MEDS ORDERED: DUONEB *Not for PRN Use IH ONE (23:05)
[2017-09-01] MEDS ORDERED: KEFLEX PO ONE (23:06)
[2017-09-02] MEDS ORDERED: DELTASONE PO ONE (00:58)
[2017-09-02 04:26] VITALS: BP 144/66
== END 2017-09-02 02:55 | disposition home or self-care (01) ==
LOC: ED 21:09
DX: J44.9 Chronic obstructive pulmonary disease, unspecified (principal); H10.9 Unspecified conjunctivitis; I10 Essential (primary) hypertension; E11.9 Type 2 diabetes mellitus without complications; M19.90 Unspecified osteoarthritis, unspecified site; Z79.899 Other long term (current) drug therapy; Z88.8 Allergy status to other drugs, medicaments and biological substances; Z90.49 Acquired absence of other specified parts of digestive tract
CPT/HCPCS: 36415; 71045; 80048; 84484; 85025; 87040; 93005; 93010; 94640; 99285; J7512

== ENCOUNTER 2017-09-23 11:29 | Emergency (ER) | payer MEDICARE ==
[2017-09-23] MEDS ORDERED: ATROVENT IH ONE (12:17)
[2017-09-23] MEDS ORDERED: PROVENTIL IH ONE (12:17)
[2017-09-23] MEDS ORDERED: NACL 0.9% 500 ML 500 ML IV ONE (12:18)
--- NOTE | 2017-09-23 12:23 | XRay Report ---
AP CHEST: HISTORY: Shortness of breath There is rotation to the left. The lungs are hyperinflated consistent with emphysema. No obvious infiltrate, pleural effusion or pneumothorax. Mild cardiomegaly is unchanged since 09/01/17. 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 IMPRESSION: COPD. Mild cardiomegaly. No significant change since 09/01/17.
[2017-09-23 12:56] LABS: Basophils # (Auto) 0.1 K/mm3 (0.0-0.1); Basophils % (Auto) 1.4 % (0.0-1.8); Eosinophils # (Auto) 0.2 K/mm3 (0.0-0.4); Eosinophils % (Auto) 2.8 % (0.0-4.3); Hematocrit 41.6 % (30.3-42.9); Hemoglobin 13.5 gm/dl (10.1-14.3); Lymphocytes # (Auto) 1.8 K/mm3 (1.2-5.4); Lymphocytes % (Auto) 24.1 % (13.4-35.0); Mean Corpuscular HGB Conc 33 % (30-34); Mean Corpuscular Hemoglobin 27 pg (28-32); Mean Corpuscular Volume 83 fl (79-97); Monocytes # (Auto) 0.7 K/mm3 (0.0-0.8); Monocytes % (Auto) 9.8 % (0.0-7.3); Platelet Count 262 K/mm3 (140-440); Red Cell Distribution Width 16.4 % (13.2-15.2)
[2017-09-23 13:06] LABS: INR 0.97 (0.87-1.13)
[2017-09-23 13:24] LABS: BUN/Creatinine Ratio 10; Blood Urea Nitrogen 8 mg/dL (7-17); Calcium 9.5 mg/dL (8.4-10.2); Hemolysis Index 9
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
[2017-09-23 18:47] VITALS: BP 109/68
== END 2017-09-23 19:47 | disposition home or self-care (01) ==
LOC: ED 11:29
DX: J44.1 Chronic obstructive pulmonary disease with (acute) exacerbation (principal); I10 Essential (primary) hypertension; E11.9 Type 2 diabetes mellitus without complications; M19.90 Unspecified osteoarthritis, unspecified site; J45.909 Unspecified asthma, uncomplicated; Z90.49 Acquired absence of other specified parts of digestive tract
CPT/HCPCS: 36415; 71045; 80048; 85025; 85610; 93005; 93010; 94640; 96374; 99284; J2930; J7040

== ENCOUNTER 2017-09-30 18:55 | Emergency (ER) | payer MEDICARE ==
[2017-09-30 19:10] VITALS: BP 148/77
[2017-09-30] MEDS ORDERED: NACL 0.9% 500 ML 500 ML IV ONE (19:10)
[2017-09-30] MEDS ORDERED: DUONEB *Not for PRN Use IH ONE (19:45)
[2017-09-30 19:55] LABS: Basophils # (Auto) 0.1 K/mm3 (0.0-0.1); Basophils % (Auto) 0.7 % (0.0-1.8); Eosinophils # (Auto) 0.2 K/mm3 (0.0-0.4); Eosinophils % (Auto) 1.7 % (0.0-4.3); Lymphocytes # (Auto) 2.1 K/mm3 (1.2-5.4); Mean Corpuscular HGB Conc 32 % (30-34); Mean Corpuscular Hemoglobin 27 pg (28-32); Mean Corpuscular Volume 83 fl (79-97); Monocytes # (Auto) 0.9 K/mm3 (0.0-0.8); Monocytes % (Auto) 6.5 % (0.0-7.3); Platelet Count 285 K/mm3 (140-440); Red Blood Count 5.28 M/mm3 (3.65-5.03); Red Cell Distribution Width 16.8 % (13.2-15.2)
[2017-09-30 19:59] LABS: INR 0.91 (0.87-1.13)
[2017-09-30 20:24] LABS: Alanine Aminotransferase 9 units/L (7-56); BUN/Creatinine Ratio 13; Blood Urea Nitrogen 10 mg/dL (7-17); Calcium 9.6 mg/dL (8.4-10.2); Hemolysis Index 7
--- NOTE | 2017-09-30 21:13 | XRay Report ---
FINAL REPORT EXAM: XR CHEST 1V AP HISTORY: possible Sepsis TECHNIQUE: Frontal and lateral chest x-ray. PRIORS: 01 Sep 2017. FINDINGS: Cardiac and mediastinal silhouette within normal limits. Lungs are hyperinflated, with mild, patchy and partially confluent opacities projected left lower lung, new or increased from comparison. Mild nodularity now projects over right lower lung possibly representing summation artifact, but nonspecific. No focal consolidation, pleural effusion or apparent pneumothorax. Chronic fracture deformity in right humeral head-neck again noted. Degenerative change in the thoracic spine. IMPRESSION: 1. Findings which may represent left basilar atelectasis, mild infiltrate or postinflammatory change, new or increased in the interval. Clinical correlation and radiographic followup after 4-6 weeks advised to document resolution. 2. Questionable nodularity projected over right lower lung may also be followed up at that time. Alternatively, correlation with CT chest may help in further evaluation, as clinically indicated.
[2017-09-30] MEDS ORDERED: NACL 0.9% 1000 ML IV ONE (21:29)
[2017-09-30] MEDS ORDERED: VANCOMYCIN 1,750 MG in NACL 0.9% 500 ML 500 ML IV ONE (21:29)
[2017-09-30] MEDS ORDERED: DELTASONE PO ONE (21:29)
--- NOTE | 2017-09-30 21:32 | Emergency Department Report ---
ED General Adult HPI - General Chief complaint: Dyspnea/Respdistress Stated complaint: LYNDA Time Seen by Provider: 09/30/17 21:07 Source: patient, EMS Mode of arrival: Wheelchair Limitations: No Limitations - History of Present Illness Initial comments: Patient is a 77-year-old female past medical history of COPD and asthma who presents with shortness of breath. Patient has had trouble difficulty breathing. Patient states that her shortness of breath is moderate nothing makes it better and nothing makes it worse or better. Patient denies any chest pain or any febrile symptoms. She states she was on 2 L of nasal cannula home and she got progressively more short of breath as the day went on. Patient called EMS. Patient is now stating that she wants to leave and she doesn't want to stay in the hospital. - Related Data Home Medications Medication Instructions Recorded Confirmed Last Taken Carvedilol [Coreg] 3.125 mg PO BID 02/08/13 01/09/14 01/08/14 Esomeprazole Magnesium [NexIUM] 40 mg PO QDAY 02/08/13 01/09/14 01/09/14 Fluticasone/Salmeterol(Nf) [Advair 1 puff PO BID 02/08/13 01/09/14 02/11/13 09: 00 HFA 115-21 mcg] Hydrocodone Bit/Acetaminophen 1 each PO QDAY PRN 02/08/13 01/09/14 01/08/14 [Lortab 7.5-500 mg] Montelukast [Singulair] 10 mg PO QPM 02/08/13 01/09/14 01/08/14 PARoxetine [Paxil] 20 mg PO DAILY 02/08/13 01/09/14 01/08/14 Prednisone [predniSONE 10 mg 10 mg PO QDAY 02/08/13 01/09/14 02/08/13 09:00 (6-Day Pack, 21 Tabs)] Quinapril/Hydrochlorothiazide 1 each PO QDAY 02/08/13 01/09/14 01/08/14 [Quinapril-Hctz 20-12.5 mg Tab] metFORMIN [Glucophage] 500 mg PO BID 02/08/13 01/09/14 01/08/14 Previous Rx's Medication Instructions Recorded Last Taken Type HYDROcodone/APAP 5-325 [[place] 1 each PO Q6HR PRN #20 tablet 04/11/13 Unknown Rx 5/325 mg] Ipratropium/Albuterol Sulfate 1 ampul IH Q8HRT #60 ampul.neb 04/11/13 Unknown Rx [DUONEB *Not for PRN Use*] Prednisone 40 mg PO QDAY #10 tablet 04/11/13 Unknown Rx Ondansetron [Zofran Odt] 4 mg PO Q6H PRN #10 tab.rapdis 01/09/14 Unknown Rx Sucralfate [Carafate] 1 gm PO Q6HR #40 tablet 01/09/14 Unknown Rx Doxycycline [Vibramycin CAP] 100 mg PO BID #14 capsule 07/08/16 Unknown Rx Prednisone [predniSONE 5 mg (6-Day 5 mg PO .TAPER #1 tab.ds.pk 07/08/16 Unknown Rx Pack, 21 Tabs)] Benzonatate [Tessalon Perles] 100 mg PO Q8HR PRN #30 capsule 12/20/16 Unknown Rx Prednisone [predniSONE 10 mg 10 mg PO .TAPER #1 tab.ds.pk 12/20/16 Unknown Rx (6-Day Pack, 21 Tabs)] Prednisone [predniSONE 10 mg 10 mg PO .TAPER #1 tab.ds.pk 01/10/17 Unknown Rx (6-Day Pack, 21 Tabs)] ALBUTEROL Inhaler [ProAir HFA 2 puff IH QDAY PRN #1 inha 06/17/17 Unknown Rx Inhaler] methylPREDNISolone [Medrol] 4 mg PO QDAY #1 tab.ds.pk 06/17/17 Unknown Rx Doxycycline [Vibramycin CAP] 100 mg PO Q12HR 7 Days #14 capsule 08/01/17 Unknown Rx Prednisone [predniSONE 10 mg 10 mg PO .TAPER #1 tab.ds.pk 08/01/17 Unknown Rx (6-Day Pack, 21 Tabs)] Prednisone [predniSONE 5 mg (6-Day 5 mg PO .TAPER #1 tab.ds.pk 08/23/17 Unknown Rx Pack, 21 Tabs)] Ipratropium/Albuterol Sulfate 1 ampul IH Q8HR #60 ampul.neb 09/02/17 Unknown Rx [DUONEB *Not for PRN Use*] Polymyxin B Sulf/Trimethoprim 2 drop OS TID 7 Days #10 ml 09/02/17 Unknown Rx [Polytrim Eye Drops] Albuterol Sulfate [Proair 90 mcg IH Q4HR PRN #2 aer.pow.ba 09/23/17 Unknown Rx Respiclick] Azithromycin [Zithromax] 250 mg PO QDAY #6 tablet 09/23/17 Unknown Rx Ipratropium [place] [Atrovent Hfa] 12.9 gm IH Q4HR #2 hfa.aer.ad 09/23/17 Unknown Rx predniSONE [Deltasone] 40 mg PO QDAY #8 tab 09/23/17 Unknown Rx Allergies Allergy/AdvReac Type Severity Reaction Status Date / Time promethazine HCl AdvReac LEG PAIN Verified 08/22/17 23:38 [From Phenergan] ED Review of Systems ROS: Stated complaint: LYNDA Other details as noted in HPI Constitutional: denies: chills, fever Eyes: denies: eye pain, eye discharge, vision change ENT: denies: ear pain, throat pain Respiratory: cough, shortness of breath. 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 BAILEY- SENIOR SPECIALIST) Hx COPD: Yes (FOR YRS, USES O2 2L N/C AT BEDTIME) - Surgical History Past Surgical History?: Yes Hx Cholecystectomy: Yes (IN THE ) Hx Breast Surgery: Yes (RIGHT BREAST STERIOTACTIC BX IN 2012) - Social History Smoking Status: Never Smoker Substance Use Type: None - Medications Home Medications: Home Medications Medication Instructions Recorded Confirmed Last Taken Type Carvedilol [Coreg] 3.125 mg PO BID 02/08/13 01/09/14 01/08/14 History Esomeprazole Magnesium [NexIUM] 40 mg PO QDAY 02/08/13 01/09/14 01/09/14 History Fluticasone/Salmeterol(Nf) [Advair 1 puff PO BID 02/08/13 01/09/14 02/11/13 09: 00 History HFA 115-21 mcg] Hydrocodone Bit/Acetaminophen 1 each PO QDAY PRN 02/08/13 01/09/14 01/08/14 History [Lortab 7.5-500 mg] Montelukast [Singulair] 10 mg PO QPM 02/08/13 01/09/14 01/08/14 History PARoxetine [Paxil] 20 mg PO DAILY 02/08/13 01/09/14 01/08/14 History Prednisone [predniSONE 10 mg 10 mg PO QDAY 02/08/13 01/09/14 02/08/13 09:00 History (6-Day Pack, 21 Tabs)] Quinapril/Hydrochlorothiazide 1 each PO QDAY 02/08/13 01/09/14 01/08/14 History [Quinapril-Hctz 20-12.5 mg Tab] metFORMIN [Glucophage] 500 mg PO BID 02/08/13 01/09/14 01/08/14 History HYDROcodone/APAP 5-325 [[place] 1 each PO Q6HR PRN #20 tablet 04/11/13 01/09/14 Unknown Rx 5/325 mg] Ipratropium/Albuterol Sulfate 1 ampul IH Q8HRT #60 ampul.neb 04/11/13 01/09/14 Unknown Rx [DUONEB *Not for PRN Use*] Prednisone 40 mg PO QDAY #10 tablet 04/11/13 01/09/14 Unknown Rx Ondansetron [Zofran Odt] 4 mg PO Q6H PRN #10 tab.rapdis 01/09/14 Unknown Rx Sucralfate [Carafate] 1 gm PO Q6HR #40 tablet 01/09/14 Unknown Rx Doxycycline [Vibramycin CAP] 100 mg PO BID #14 capsule 07/08/16 Unknown Rx Prednisone [predniSONE 5 mg (6-Day 5 mg PO .TAPER #1 tab.ds.pk 07/08/16 Unknown Rx Pack, 21 Tabs)] Benzonatate [Tessalon Perles] 100 mg PO Q8HR PRN #30 capsule 12/20/16 Unknown Rx Prednisone [predniSONE 10 mg 10 mg PO .TAPER #1 tab.ds.pk 12/20/16 Unknown Rx (6-Day Pack, 21 Tabs)] Prednisone [predniSONE 10 mg 10 mg PO .TAPER #1 tab.ds.pk 01/10/17 Unknown Rx (6-Day Pack, 21 Tabs)] ALBUTEROL Inhaler [ProAir HFA 2 puff IH QDAY PRN #1 inha 06/17/17 Unknown Rx Inhaler] methylPREDNISolone [Medrol] 4 mg PO QDAY #1 tab.ds.pk 06/17/17 Unknown Rx Doxycycline [Vibramycin CAP] 100 mg PO Q12HR 7 Days #14 capsule 08/01/17 Unknown Rx Prednisone [predniSONE 10 mg 10 mg PO .TAPER #1 tab.ds.pk 08/01/17 Unknown Rx (6-Day Pack, 21 Tabs)] Prednisone [predniSONE 5 mg (6-Day 5 mg PO .TAPER #1 tab.ds.pk 08/23/17 Unknown Rx Pack, 21 Tabs)] Ipratropium/Albuterol Sulfate 1 ampul IH Q8HR #60 ampul.neb 09/02/17 Unknown Rx [DUONEB *Not for PRN Use*] Polymyxin B Sulf/Trimethoprim 2 drop OS TID 7 Days #10 ml 09/02/17 Unknown Rx [Polytrim Eye Drops] Albuterol Sulfate [Proair 90 mcg IH Q4HR PRN #2 aer.pow.ba 09/23/17 Unknown Rx Respiclick] Azithromycin [Zithromax] 250 mg PO QDAY #6 tablet 09/23/17 Unknown Rx Ipratropium [place] [Atrovent Hfa] 12.9 gm IH Q4HR #2 hfa.aer.ad 09/23/17 Unknown Rx predniSONE [Deltasone] 40 mg PO QDAY #8 tab 09/23/17 Unknown Rx ED Physical Exam - General Limitations: No Limitations General appearance: alert, in no apparent distress - Head Head exam: Present: atraumatic, normocephalic - Eye Eye exam: Present: normal appearance - ENT ENT exam: Present: mucous membranes moist - Neck Neck exam: Present: normal inspection - Respiratory Respiratory exam: Present: normal lung sounds bilaterally, rhonchi. Absent: respiratory distress - Cardiovascular Cardiovascular Exam: Present: normal rhythm, tachycardia. Absent: systolic murmur, diastolic murmur, rubs, gallop - GI/Abdominal GI/Abdominal exam: Present: soft, normal bowel sounds - Extremities Exam Extremities exam: Present: normal inspection - Back Exam Back exam: Present: normal inspection - Neurological Exam Neurological exam: Present: alert, oriented X3 - Psychiatric Psychiatric exam: Present: normal affect, normal mood - Skin Skin exam: Present: warm, dry, intact, normal color. Absent: rash ED Course Vital Signs 09/30/17 09/30/17 09/30/17 19:06 19:50 19:59 Temperature 100.3 F H Pulse Rate 112 H Pulse Rate [ 105 H 113 H Anterior Bilateral Throughout] Respiratory 20 Rate Respiratory 22 20 Rate [Anterior Bilateral Throughout] Blood Pressure 148/77 O2 Sat by Pulse 94 Oximetry 09/30/17 22:10 Temperature Pulse Rate Pulse Rate [ 98 H Anterior Bilateral Throughout] Respiratory Rate Respiratory 22 Rate [Anterior Bilateral Throughout] Blood Pressure O2 Sat by Pulse Oximetry ED Medical Decision Making - Lab Data Result diagrams: 09/30/17 19:22 09/30/17 19:22 Lab Results 09/30/17 09/30/17 09/30/17 Range/Units 19:22 19:22 19:22 WBC 13.7 H (4.5-11.0) K/mm3 RBC 5.28 H (3.65-5.03) M/mm3 Hgb 14.0 (10.1-14.3) gm/dl Hct 44.0 H (30.3-42.9) % MCV 83 (79-97) fl MCH 27 L (28-32) pg MCHC 32 (30-34) % RDW 16.8 H (13.2-15.2) % Plt Count 285 (140-440) K/mm3 Lymph % (Auto) 15.0 (13.4-35.0) % [place] % (Auto) 6.5 (0.0-7.3) % Eos % (Auto) 1.7 (0.0-4.3) % Baso % (Auto) 0.7 (0.0-1.8) % Lymph # 2.1 (1.2-5.4) K/mm3 [place] # 0.9 H (0.0-0.8) K/mm3 Eos # 0.2 (0.0-0.4) K/mm3 Baso # 0.1 (0.0-0.1) K/mm3 Seg Neutrophils % 76.1 H (40.0-70.0) % Seg Neutrophils # 10.4 H (1.8-7.7) K/mm3 PT 12.7 (12.2-14.9) Sec. INR 0.91 (0.87-1.13) VBG pH (7.320-7.420) Sodium 137 (137-145) mmol/L Potassium 4.3 (3.6-5.0) mmol/L Chloride 93.1 L (98-107) mmol/L Carbon Dioxide 29 (22-30) mmol/L Anion Gap 19 mmol/L BUN 10 (7-17) mg/dL Creatinine 0.8 (0.7-1.2) mg/dL Estimated GFR > 60 ml/min BUN/Creatinine Ratio 13 % Glucose 112 H (65-100) mg/dL Lactic Acid (0.7-2.0) mmol/L Calcium 9.6 (8.4-10.2) mg/dL Total Bilirubin 0.50 (0.1-1.2) mg/dL AST 13 (5-40) units/L ALT 9 (7-56) units/L Alkaline Phosphatase 101 (35-129) units/L Total Protein 6.9 (6.3-8.2) g/dL Albumin 4.0 (3.9-5) g/dL Albumin/Globulin Ratio 1.4 % 09/30/17 09/30/17 Range/Units 19:22 19:22 WBC (4.5-11.0) K/mm3 RBC (3.65-5.03) M/mm3 Hgb (10.1-14.3) gm/dl Hct (30.3-42.9) % MCV (79-97) fl MCH (28-32) pg MCHC (30-34) % RDW (13.2-15.2) % Plt Count (140-440) K/mm3 Lymph % (Auto) (13.4-35.0) % [place] % (Auto) (0.0-7.3) % Eos % (Auto) (0.0-4.3) % Baso % (Auto) (0.0-1.8) % Lymph # (1.2-5.4) K/mm3 [place] # (0.0-0.8) K/mm3 Eos # (0.0-0.4) K/mm3 Baso # (0.0-0.1) K/mm3 Seg Neutrophils % (40.0-70.0) % Seg Neutrophils # (1.8-7.7) K/mm3 PT (12.2-14.9) Sec. INR (0.87-1.13) VBG pH 7.453 H (7.320-7.420) Sodium (137-145) mmol/L Potassium (3.6-5.0) mmol/L Chloride (98-107) mmol/L Carbon Dioxide (22-30) mmol/L Anion Gap mmol/L BUN (7-17) mg/dL Creatinine (0.7-1.2) mg/dL Estimated GFR ml/min BUN/Creatinine Ratio % Glucose (65-100) mg/dL Lactic Acid 2.10 H* (0.7-2.0) mmol/L Calcium (8.4-10.2) mg/dL Total Bilirubin (0.1-1.2) mg/dL AST (5-40) units/L ALT (7-56) units/L Alkaline Phosphatase (35-129) units/L Total Protein (6.3-8.2) g/dL Albumin (3.9-5) g/dL Albumin/Globulin Ratio % - EKG Data -: EKG Interpreted by Pr - EKG Data 09/30/17 21:38 EKG shows sinus tachycardia with LVH and left axis deviation no ST segment elevation or T-wave inversion. - Radiology Data Radiology results: report reviewed Chest x-ray: Shows left-sided pneumonia - Medical Decision Making Chief medical diagnosis: Pneumonia Differential medical diagnosis: COPD exacerbation, non-STEMI I will get CBC, CMP, troponin, EKG, 30 and most for kilo, IV antibiotics, IV prednisone chest x-ray. Due to patient having sepsis I will admit patient to the hospital due to her having a life-threatening condition. Patient refuses to be admitted and states that she wants to leave the hospital AGAINST MEDICAL ADVICE. Critical Care Time: Yes (30) Critical care time in (mins) excluding proc time.: 30 Critical care attestation.: If time is entered above; I have spent that time in minutes in the direct care of this critically ill patient, excluding procedure time. Critical care time spent at patient's bedside 10 minutes Critical care time spent reviewing patient's laboratory findings 10 minutes Critical care time spent reviewing old charts 10 minutes ED Disposition Clinical Impression: COPD with exacerbation Sepsis Qualifiers: Sepsis type: sepsis during labor Qualified Code(s): O75.3 - Other infection during labor Disposition: LEFT AGAINST MED ADVICE Is pt being admited?: Yes Does the pt Need Aspirin: Yes Condition: Stable Instructions: Chronic Obstructive Pulmonary Disease (ED) Referrals: PRIMARY CARE, [Primary Care Provider] - 3-5 Days
[2017-09-30] MEDS ORDERED: PROVENTIL IH ONE (21:36)
[2017-09-30] MEDS ORDERED: ATROVENT IH ONE (21:36)
[2017-10-01] MEDS ORDERED: cefTRIAXone 2 GM in NACL 0.9% 20 ML IV SCH (10:00)
[2017-10-01] MEDS ORDERED: ZITHROMAX 500 MG in NACL 0.9% 250ML 250 ML IV SCH (10:00)
[2017-10-01] MEDS ORDERED: ROCEPHIN/NS 2 GM/100 ML 2 GM/100 ML BAG IV SCH (10:00)
== END 2017-10-01 00:37 | disposition left against medical advice (07) ==
LOC: ED 18:55
DX: A41.9 Sepsis, unspecified organism (principal); J44.1 Chronic obstructive pulmonary disease with (acute) exacerbation; I10 Essential (primary) hypertension; E11.9 Type 2 diabetes mellitus without complications; M19.90 Unspecified osteoarthritis, unspecified site; J45.909 Unspecified asthma, uncomplicated; Z90.49 Acquired absence of other specified parts of digestive tract; Z88.8 Allergy status to other drugs, medicaments and biological substances
CPT/HCPCS: 36415; 71045; 80053; 82140; 82805; 85025; 85610; 87040; 93005; 93010; 94640; 94644; 99291; J7512; J0456; J0696; J3370; J7040; J7050

== ENCOUNTER 2017-10-08 21:08 | Emergency (ER) | payer MEDICARE ==
--- NOTE | 2017-10-08 21:59 | Emergency Department Report ---
HPI - General Chief Complaint: Dyspnea/Respdistress Time Seen by Provider: 10/08/17 21:12 - HPI HPI: 77-year-old female presents to the emergency department via EMS from home with complaint of some shortness of breath and wheezing that has been going on since this morning. She has a history of COPD and asthma and is oxygen dependent on 2 L via nasal cannula. She tried her inhaler and a nebulizer with only some mild relief. She got 5 mg of albuterol in route with EMS as well and says that helped somewhat. She denies any fever, chest pain, lower extremity swelling. She denies any tobacco or illicit drug use. No recent travel or sick contacts at home. Her primary care physician is Dr. Boyd and her willow worker is Dr. Cee. 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) Hx COPD: Yes - Surgical History Hx Cholecystectomy: Yes (IN THE ) Hx Breast Surgery: Yes (RIGHT BREAST STERIOTACTIC BX IN 2012) - Social History Smoking Status: Never Smoker Substance Use Type: None - Medications Home Medications: Home Medications Medication Instructions Recorded Confirmed Last Taken Type Carvedilol [Coreg] 3.125 mg PO BID 02/08/13 01/09/14 01/08/14 History Esomeprazole Magnesium [NexIUM] 40 mg PO QDAY 02/08/13 01/09/14 01/09/14 History Fluticasone/Salmeterol(Nf) [Advair 1 puff PO BID 02/08/13 01/09/14 02/11/13 09: 00 History HFA 115-21 mcg] Hydrocodone Bit/Acetaminophen 1 each PO QDAY PRN 02/08/13 01/09/14 01/08/14 History [Lortab 7.5-500 mg] Montelukast [Singulair] 10 mg PO QPM 02/08/13 01/09/14 01/08/14 History PARoxetine [Paxil] 20 mg PO DAILY 02/08/13 01/09/14 01/08/14 History Prednisone [predniSONE 10 mg 10 mg PO QDAY 02/08/13 01/09/1402/08/13 09:00 History (6-Day Pack, 21 Tabs)] Quinapril/Hydrochlorothiazide 1 each PO QDAY 02/08/13 01/09/14 01/08/14 History [Quinapril-Hctz 20-12.5 mg Tab] metFORMIN [Glucophage] 500 mg PO BID 02/08/13 01/09/14 01/08/14 History HYDROcodone/APAP 5-325 [[place] 1 each PO Q6HR PRN #20 tablet 04/11/13 01/09/14 Unknown Rx 5/325 mg] Ipratropium/Albuterol Sulfate 1 ampul IH Q8HRT #60 ampul.neb 04/11/13 01/09/14 Unknown Rx [DUONEB *Not for PRN Use*] Prednisone 40 mg PO QDAY #10 tablet 04/11/13 01/09/14 Unknown Rx Ondansetron [Zofran Odt] 4 mg PO Q6H PRN #10 tab.rapdis 01/09/14 Unknown Rx Sucralfate [Carafate] 1 gm PO Q6HR #40 tablet 01/09/14 Unknown Rx Doxycycline [Vibramycin CAP] 100 mg PO BID #14 capsule 07/08/16 Unknown Rx Prednisone [predniSONE 5 mg (6-Day 5 mg PO .TAPER #1 tab.ds.pk 07/08/16 Unknown Rx Pack, 21 Tabs)] Benzonatate [Tessalon Perles] 100 mg PO Q8HR PRN #30 capsule 12/20/16 Unknown Rx Prednisone [predniSONE 10 mg 10 mg PO .TAPER #1 tab.ds.pk 12/20/16 Unknown Rx (6-Day Pack, 21 Tabs)] Prednisone [predniSONE 10 mg 10 mg PO .TAPER #1 tab.ds.pk 01/10/17 Unknown Rx (6-Day Pack, 21 Tabs)] ALBUTEROL Inhaler [ProAir HFA 2 puff IH QDAY PRN #1 inha 06/17/17 Unknown Rx Inhaler] methylPREDNISolone [Medrol] 4 mg PO QDAY #1 tab.ds.pk 06/17/17 Unknown Rx Doxycycline [Vibramycin CAP] 100 mg PO Q12HR 7 Days #14 capsule 08/01/17 Unknown Rx Prednisone [predniSONE 10 mg 10 mg PO .TAPER #1 tab.ds.pk 08/01/17 Unknown Rx (6-Day Pack, 21 Tabs)] Prednisone [predniSONE 5 mg (6-Day 5 mg PO .TAPER #1 tab.ds.pk 08/23/17 Unknown Rx Pack, 21 Tabs)] Ipratropium/Albuterol Sulfate 1 ampul IH Q8HR #60 ampul.neb 09/02/17 Unknown Rx [DUONEB *Not for PRN Use*] Polymyxin B Sulf/Trimethoprim 2 drop OS TID 7 Days #10 ml 09/02/17 Unknown Rx [Polytrim Eye Drops] Albuterol Sulfate [Proair 90 mcg IH Q4HR PRN #2 aer.pow.ba 09/23/17 Unknown Rx Respiclick] Azithromycin [Zithromax] 250 mg PO QDAY #6 tablet 09/23/17 Unknown Rx Ipratropium [place] [Atrovent Hfa] 12.9 gm IH Q4HR #2 hfa.aer.ad 09/23/17 Unknown Rx predniSONE [Deltasone] 40 mg PO QDAY #8 tab 09/23/17 Unknown Rx ED Review of Systems ROS: Stated complaint: DIFFICULTY IN BREATHING Other details as noted in HPI Comment: All other systems reviewed and negative Constitutional: denies: chills, fever Eyes: denies: eye pain, eye discharge, vision change ENT: denies: ear pain, throat pain Respiratory: cough, shortness of breath, wheezing Cardiovascular: denies: chest pain, palpitations Gastrointestinal: denies: abdominal pain, nausea, diarrhea Genitourinary: denies: urgency, dysuria, discharge Musculoskeletal: denies: back pain, joint swelling, arthralgia Skin: denies: rash, lesions Neurological: denies: headache, weakness, paresthesias Physical Exam - Physical Exam Vital Signs: Vital Signs 10/08/17 21:19 Temperature 99.5 F Pulse Rate 86 Respiratory 22 Rate Blood Pressure 192/82 O2 Sat by Pulse 97 Oximetry Physical Exam: GENERAL: The patient is well-developed well-nourished. HENT: Normocephalic. Atraumatic. Patient has moist mucous membranes. EYES: Extraocular motions are intact. Pupils equal reactive to light bilaterally. NECK: Supple. Trachea is midline. CHEST/LUNGS: Mild wheezing throughout the chest. There is some tachypnea but no accessory muscle use. A dry cough heard and immediately during examination. There is no respiratory distress noted. HEART/CARDIOVASCULAR: Regular. There is no tachycardia. There is no murmur. ABDOMEN: Abdomen is soft, nontender. Patient has normal bowel sounds. There is no abdominal distention. SKIN: Skin is warm and dry. NEURO: The patient is awake, alert, and oriented. The patient is cooperative. The patient has no focal neurologic deficits. The patient has normal speech. MUSCULOSKELETAL: There is no tenderness or deformity. There is no limitation range of motion. There is no evidence of acute injury. ED Course Vital Signs 10/08/17 21:19 Temperature 99.5 F Pulse Rate 86 Respiratory 22 Rate Blood Pressure 192/82 O2 Sat by Pulse 97 Oximetry ED Medical Decision Making - Lab Data Result diagrams: 10/09/17 05:00 10/09/17 05:00 - EKG Data -: EKG Interpreted by Vt EKG shows normal: sinus rhythm, axis (left axis deviation), intervals, QRS complexes (LVH), ST-T waves Rate: normal - EKG Data When compared to previous EKG there are: no significant change Interpretation: unchanged when compared t (09/30/17) - Radiology Data Radiology results: report reviewed PROCEDURE: XR CHEST ROUTINE 2V TECHNIQUE: PA and lateral chest radiographs were obtained. CPT 80335 HISTORY: Shortness of breath COMPARISON: No prior studies are available for comparison. FINDINGS: Heart: Normal. Mediastinum/Vessels: Normal. Lungs/Pleural space: Lungs are hyperinflated. A triangular homogeneous density is noted involving the lingula. Left hilar structures are prominent. Small nodular densities of right apex stable since 01/10/2017.. There is mild degree prominence of interstitial markings. Pleural spaces are clear.. Bony thorax: Moderate degree kyphosis is identified.. Other: IMPRESSION: Prominent left hilar structures are noted. Any underlying hilar mass cannot be excluded. CT chest is recommended with contrast. Triangular density of lingula most likely represents atelectasis. COPD Prominent interstitial markings may represent interstitial fibrosis versus interstitial edema.. Transcribed By: [facility] [place] Dictated By: CHRISTIN MELTON Electronically Authenticated By: CHRISTIN MELTON Signed Date/Time: 10/08/17 4260 - Medical Decision Making Patient originally came in for some shortness of breath and wheezing that appear to be an exacerbation of her COPD. She allowed us to get a chest x-ray and to provide some breathing treatments and steroids. However shortly after arrival, the patient refused any labs to be drawn and wanted to be discharged home. I explained to her that the chest x-ray looked slightly abnormal and recommended a CT scan with IV contrast but she refused this as well. The patient asked to sign out AGAINST MEDICAL ADVICE. She was awake, alert and had normal mental capacity and understood the risks of leaving AGAINST MEDICAL ADVICE including respiratory distress, respiratory arrest and . However the patient also wanted transportation provided for her after leaving AMA and did not have the medication available for a transportation van. It sounds like the patient eventually gave in and got blood work done after I had left before my shift. Looking at it now the blood work appears unremarkable. She says that she had inhaler nebulizer treatments using home and she has good follow-up with primary care and pulmonology. Reviewing the chart and once again shows that the patient left by a taxi at about 5 AM. - Differential Diagnosis COPD, asthma, pneumonia Critical Care Time: No Critical care attestation.: If time is entered above; I have spent that time in minutes in the direct care of this critically ill patient, excluding procedure time. ED Disposition Clinical Impression: COPD (chronic obstructive pulmonary disease) Qualifiers: COPD type: unspecified COPD Qualified Code(s): J44.9 - Chronic obstructive pulmonary disease, unspecified Hypertension Qualifiers: Hypertension type: essential hypertension Qualified Code(s): I10 - Essential ( primary) hypertension Disposition: LEFT AGAINST MED ADVICE Is pt being admited?: No Condition: Stable Instructions: Chronic Obstructive Pulmonary Disease (ED), Hypertension (ED) Additional Instructions: Return to the emergency department if you change your mind about further evaluation of your shortness of breath or with any worsening of your symptoms or any acute distress. Otherwise make sure to see her primary care physician and willow worker. Continue taking your medications. Referrals: MORGAN EMERY MD [Primary Care Provider] - 3-5 Days Forms: AMA Form Time of Disposition: 22:56
--- NOTE | 2017-10-08 22:14 | XRay Report ---
FINAL REPORT PROCEDURE: XR CHEST ROUTINE 2V TECHNIQUE: PA and lateral chest radiographs were obtained. CPT 64497 HISTORY: Shortness of breath COMPARISON: No prior studies are available for comparison. FINDINGS: Heart: Normal. Mediastinum/Vessels: Normal. Lungs/Pleural space: Lungs are hyperinflated. A triangular homogeneous density is noted involving the lingula. Left hilar structures are prominent. Small nodular densities of right apex stable since 01/10/2017.. There is mild degree prominence of interstitial markings. Pleural spaces are clear.. Bony thorax: Moderate degree kyphosis is identified.. Other: IMPRESSION: Prominent left hilar structures are noted. Any underlying hilar mass cannot be excluded. CT chest is recommended with contrast. Triangular density of lingula most likely represents atelectasis. COPD Prominent interstitial markings may represent interstitial fibrosis versus interstitial edema..
[2017-10-08] MEDS: ATROVENT IH ONE ×2 (22:23→23:56)
[2017-10-08] MEDS: PROVENTIL IH ONE ×2 (22:23→23:56)
[2017-10-08 23:36] VITALS: BP 165/70
[2017-10-08] MEDS ORDERED: ATROVENT IH ONE (23:39)
[2017-10-08] MEDS ORDERED: PROVENTIL IH ONE (23:40)
[2017-10-09 05:43] LABS: Basophils # (Auto) 0.1 K/mm3 (0.0-0.1); Basophils % (Auto) 0.6 % (0.0-1.8); Eosinophils # (Auto) 0.1 K/mm3 (0.0-0.4); Eosinophils % (Auto) 0.6 % (0.0-4.3); Hematocrit 42.1 % (30.3-42.9); Hemoglobin 13.8 gm/dl (10.1-14.3); Lymphocytes # (Auto) 1.4 K/mm3 (1.2-5.4); Lymphocytes % (Auto) 9.8 % (13.4-35.0); Mean Corpuscular HGB Conc 33 % (30-34); Mean Corpuscular Hemoglobin 27 pg (28-32); Mean Corpuscular Volume 84 fl (79-97); Monocytes # (Auto) 0.8 K/mm3 (0.0-0.8); Monocytes % (Auto) 5.6 % (0.0-7.3); Platelet Count 271 K/mm3 (140-440); Red Blood Count 5.04 M/mm3 (3.65-5.03); Red Cell Distribution Width 16.3 % (13.2-15.2)
[2017-10-09 05:59] LABS: BUN/Creatinine Ratio 14; Blood Urea Nitrogen 10 mg/dL (7-17); Calcium 9.7 mg/dL (8.4-10.2); Hemolysis Index 5
== END 2017-10-09 07:26 | disposition left against medical advice (07) ==
LOC: ED 21:08
DX: J44.9 Chronic obstructive pulmonary disease, unspecified (principal); I10 Essential (primary) hypertension; E11.9 Type 2 diabetes mellitus without complications; M19.90 Unspecified osteoarthritis, unspecified site; Z90.49 Acquired absence of other specified parts of digestive tract; Z79.899 Other long term (current) drug therapy
CPT/HCPCS: 36415; 71046; 80048; 84484; 85025; 93005; 93010; 94640; 94644

== ENCOUNTER 2018-01-09 18:36 | Inpatient (IN) | payer MEDICAID, MEDICARE ==
[2018-01-09 19:10] LABS: Basophils # (Auto) 0.1 K/mm3 (0.0-0.1); Basophils % (Auto) 1.2 % (0.0-1.8); Eosinophils # (Auto) 0.3 K/mm3 (0.0-0.4); Eosinophils % (Auto) 3.7 % (0.0-4.3); Hematocrit 41.5 % (30.3-42.9); Hemoglobin 13.6 gm/dl (10.1-14.3); Lymphocytes # (Auto) 1.7 K/mm3 (1.2-5.4); Lymphocytes % (Auto) 21.6 % (13.4-35.0); Mean Corpuscular HGB Conc 33 % (30-34); Mean Corpuscular Hemoglobin 27 pg (28-32); Mean Corpuscular Volume 84 fl (79-97); Monocytes # (Auto) 0.5 K/mm3 (0.0-0.8); Monocytes % (Auto) 6.6 % (0.0-7.3); Platelet Count 254 K/mm3 (140-440); Red Blood Count 4.97 M/mm3 (3.65-5.03)
[2018-01-09 19:19] LABS: BUN/Creatinine Ratio 9; Blood Urea Nitrogen 6 mg/dL (7-17); Calcium 9.5 mg/dL (8.4-10.2); Hemolysis Index 4
[2018-01-09] MEDS ORDERED: PROVENTIL IH ONE ×2 (19:28→23:22)
[2018-01-09] MEDS ORDERED: SOLU-Medrol IV ONE (19:28)
[2018-01-09] MEDS ORDERED: ATROVENT IH ONE (19:29)
--- NOTE | 2018-01-09 19:47 | Emergency Department Report ---
ED Shortness of Breath HPI - General Chief Complaint: Dyspnea/Respdistress Stated Complaint: LYNDA Time Seen by Provider: 01/09/18 19:11 Source: EMS Mode of arrival: Ambulatory Limitations: No Limitations - History of Present Illness Initial Comments: 77-year-old female with a past medical history of asthma, COPD, diabetes, and hypertension presents to hospital complaining of shortness of breath since yesterday secondary to COPD. Patient complains of wheezing and dry cough. She is using home nebulizer treatments without improvement. Patient states she has prednisone at home she takes when necessary. She's been out of her hypertensive medications 1 month and can't the name of her med. Patient denies history of previous intubations. - Related Data Home Medications Medication Instructions Recorded Confirmed Last Taken Carvedilol [Coreg] 3.125 mg PO BID 02/08/13 01/09/14 01/08/14 Esomeprazole Magnesium [NexIUM] 40 mg PO QDAY 02/08/13 01/09/14 01/09/14 Fluticasone/Salmeterol(Nf) [Advair 1 puff PO BID 02/08/13 01/09/14 02/11/13 09: 00 HFA 115-21 mcg] Hydrocodone Bit/Acetaminophen 1 each PO QDAY PRN 02/08/13 01/09/14 01/08/14 [Lortab 7.5-500 mg] Montelukast [Singulair] 10 mg PO QPM 02/08/13 01/09/14 01/08/14 PARoxetine [Paxil] 20 mg PO DAILY 02/08/13 01/09/14 01/08/14 Prednisone [predniSONE 10 mg 10 mg PO QDAY 02/08/13 01/09/14 02/08/13 09:00 (6-Day Pack, 21 Tabs)] Quinapril/Hydrochlorothiazide 1 each PO QDAY 02/08/13 01/09/14 01/08/14 [Quinapril-Hctz 20-12.5 mg Tab] metFORMIN [Glucophage] 500 mg PO BID 02/08/13 01/09/14 01/08/14 Previous Rx's Medication Instructions Recorded Last Taken Type HYDROcodone/APAP 5-325 [[place] 1 each PO Q6HR PRN #20 tablet 04/11/13 Unknown Rx 5/325 mg] Ipratropium/Albuterol Sulfate 1 ampul IH Q8HRT #60 ampul.neb 04/11/13 Unknown Rx [DUONEB *Not for PRN Use*] Prednisone 40 mg PO QDAY #10 tablet 04/11/13 Unknown Rx Ondansetron [Zofran Odt] 4 mg PO Q6H PRN #10 tab.rapdis 01/09/14 Unknown Rx Sucralfate [Carafate] 1 gm PO Q6HR #40 tablet 01/09/14 Unknown Rx Doxycycline [Vibramycin CAP] 100 mg PO BID #14 capsule 07/08/16 Unknown Rx Prednisone [predniSONE 5 mg (6-Day 5 mg PO .TAPER #1 tab.ds.pk 07/08/16 Unknown Rx Pack, 21 Tabs)] Benzonatate [Tessalon Perles] 100 mg PO Q8HR PRN #30 capsule 12/20/16 Unknown Rx Prednisone [predniSONE 10 mg 10 mg PO .TAPER #1 tab.ds.pk 12/20/16 Unknown Rx (6-Day Pack, 21 Tabs)] Prednisone [predniSONE 10 mg 10 mg PO .TAPER #1 tab.ds.pk 01/10/17 Unknown Rx (6-Day Pack, 21 Tabs)] ALBUTEROL Inhaler (OR & NICU) 2 puff IH QDAY PRN #1 inha 06/17/17 Unknown Rx [ProAir HFA Inhaler] methylPREDNISolone [Medrol] 4 mg PO QDAY #1 tab.ds.pk 06/17/17 Unknown Rx Doxycycline [Vibramycin CAP] 100 mg PO Q12HR 7 Days #14 capsule 08/01/17 Unknown Rx Prednisone [predniSONE 10 mg 10 mg PO .TAPER #1 tab.ds.pk 08/01/17 Unknown Rx (6-Day Pack, 21 Tabs)] Prednisone [predniSONE 5 mg (6-Day 5 mg PO .TAPER #1 tab.ds.pk 08/23/17 Unknown Rx Pack, 21 Tabs)] Ipratropium/Albuterol Sulfate 1 ampul IH Q8HR #60 ampul.neb 09/02/17 Unknown Rx [DUONEB *Not for PRN Use*] Polymyxin B Sulf/Trimethoprim 2 drop OS TID 7 Days #10 ml 09/02/17 Unknown Rx [Polytrim Eye Drops] Albuterol Sulfate [Proair 90 mcg IH Q4HR PRN #2 aer.pow.ba 09/23/17 Unknown Rx Respiclick] Azithromycin [Zithromax] 250 mg PO QDAY #6 tablet 09/23/17 Unknown Rx Ipratropium [place] [Atrovent Hfa] 12.9 gm IH Q4HR #2 hfa.aer.ad 09/23/17 Unknown Rx predniSONE [Deltasone] 40 mg PO QDAY #8 tab 09/23/17 Unknown Rx Allergies Allergy/AdvReac Type Severity Reaction Status Date / Time promethazine HCl AdvReac LEG PAIN Verified 08/22/17 23:38 [From Phenergan] ED Review of Systems ROS: Stated complaint: LYNDA Other details as noted in HPI Comment: All other systems reviewed and negative ED Past Medical Hx - Past Medical History Previous Medical History?: Yes Hx Hypertension: Yes (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) Hx COPD: Yes - Surgical History Past Surgical History?: Yes Hx Cholecystectomy: Yes (IN THE ) Hx Breast Surgery: Yes (RIGHT BREAST STERIOTACTIC BX IN 2012) - Social History Smoking Status: Never Smoker - Medications Home Medications: Home Medications Medication Instructions Recorded Confirmed Last Taken Type Carvedilol [Coreg] 3.125 mg PO BID 02/08/13 01/09/14 01/08/14 History Esomeprazole Magnesium [NexIUM] 40 mg PO QDAY 02/08/13 01/09/14 01/09/14 History Fluticasone/Salmeterol(Nf) [Advair 1 puff PO BID 02/08/13 01/09/14 02/11/13 09: 00 History HFA 115-21 mcg] Hydrocodone Bit/Acetaminophen 1 each PO QDAY PRN 02/08/13 01/09/14 01/08/14 History [Lortab 7.5-500 mg] Montelukast [Singulair] 10 mg PO QPM 02/08/13 01/09/14 01/08/14 History PARoxetine [Paxil] 20 mg PO DAILY 02/08/13 01/09/14 01/08/14 History Prednisone [predniSONE 10 mg 10 mg PO QDAY 02/08/13 01/09/14 02/08/13 09:00 History (6-Day Pack, 21 Tabs)] Quinapril/Hydrochlorothiazide 1 each PO QDAY 02/08/13 01/09/14 01/08/14 History [Quinapril-Hctz 20-12.5 mg Tab] metFORMIN [Glucophage] 500 mg PO BID 02/08/13 01/09/14 01/08/14 History HYDROcodone/APAP 5-325 [[place] 1 each PO Q6HR PRN #20 tablet 04/11/13 01/09/14 Unknown Rx 5/325 mg] Ipratropium/Albuterol Sulfate 1 ampul IH Q8HRT #60 ampul.neb 04/11/13 01/09/14 Unknown Rx [DUONEB *Not for PRN Use*] Prednisone 40 mg PO QDAY #10 tablet 04/11/13 01/09/14 Unknown Rx Ondansetron [Zofran Odt] 4 mg PO Q6H PRN #10 tab.rapdis 01/09/14 Unknown Rx Sucralfate [Carafate] 1 gm PO Q6HR #40 tablet 01/09/14 Unknown Rx Doxycycline [Vibramycin CAP] 100 mg PO BID #14 capsule 07/08/16 Unknown Rx Prednisone [predniSONE 5 mg (6-Day 5 mg PO .TAPER #1 tab.ds.pk 07/08/16 Unknown Rx Pack, 21 Tabs)] Benzonatate [Tessalon Perles] 100 mg PO Q8HR PRN #30 capsule 12/20/16 Unknown Rx Prednisone [predniSONE 10 mg 10 mg PO .TAPER #1 tab.ds.pk 12/20/16 Unknown Rx (6-Day Pack, 21 Tabs)] Prednisone [predniSONE 10 mg 10 mg PO .TAPER #1 tab.ds.pk 01/10/17 Unknown Rx (6-Day Pack, 21 Tabs)] ALBUTEROL Inhaler (OR & NICU) 2 puff IH QDAY PRN #1 inha 06/17/17 Unknown Rx [ProAir HFA Inhaler] methylPREDNISolone [Medrol] 4 mg PO QDAY #1 tab.ds.pk 06/17/17 Unknown Rx Doxycycline [Vibramycin CAP] 100 mg PO Q12HR 7 Days #14 capsule 08/01/17 Unknown Rx Prednisone [predniSONE 10 mg 10 mg PO .TAPER #1 tab.ds.pk 08/01/17 Unknown Rx (6-Day Pack, 21 Tabs)] Prednisone [predniSONE 5 mg (6-Day 5 mg PO .TAPER #1 tab.ds.pk 08/23/17 Unknown Rx Pack, 21 Tabs)] Ipratropium/Albuterol Sulfate 1 ampul IH Q8HR #60 ampul.neb 09/02/17 Unknown Rx [DUONEB *Not for PRN Use*] Polymyxin B Sulf/Trimethoprim 2 drop OS TID 7 Days #10 ml 09/02/17 Unknown Rx [Polytrim Eye Drops] Albuterol Sulfate [Proair 90 mcg IH Q4HR PRN #2 aer.pow.ba 09/23/17 Unknown Rx Respiclick] Azithromycin [Zithromax] 250 mg PO QDAY #6 tablet 09/23/17 Unknown Rx Ipratropium [place] [Atrovent Hfa] 12.9 gm IH Q4HR #2 hfa.aer.ad 09/23/17 Unknown Rx predniSONE [Deltasone] 40 mg PO QDAY #8 tab 09/23/17 Unknown Rx ED Physical Exam - General Limitations: No Limitations - Other Other exam information: General: No limitations, patient is alert in no acute distress Head exam: Atraumatic, normocephalic Eyes exam: Normal appearance ENT: Moist mucous membrane, normal oropharynx Neck exam: Normal inspection, full range of motion, no meningismus nontender Respiratory exam: Fair air movement, bilateral wheezing, no accessory muscle use Cardiovascular: Normal rate and rhythm, normal heart sounds Abdomen: Soft, nondistended, and nontender, with normal bowel sounds, no rebound, or guarding Extremity: Full range of motion normal inspection no deformity, tenderness Back: Normal Inspection, full range of motion, no tenderness Neurologic: Alert, oriented x3, cranial nerves intact, no motor or sensory deficit Psychiatric: normal affect, normal mood Skin: Warm, dry, intact ED Course Vital Signs 01/09/18 01/09/18 01/09/18 18:58 19:39 20:21 Temperature 99.3 F Pulse Rate 103 H 101 H Pulse Rate [ 100 H Anterior Bilateral Throughout] Respiratory 24 Rate Respiratory 16 Rate [Anterior Bilateral Throughout] Blood Pressure 153/78 Blood Pressure 176/73 [Left] O2 Sat by Pulse 95 Oximetry 01/09/18 01/09/18 01/09/18 20:35 22:50 23:00 Temperature Pulse Rate 111 H 101 H Pulse Rate [ 99 H Anterior Bilateral Throughout] Respiratory 23 19 Rate Respiratory 16 Rate [Anterior Bilateral Throughout] Blood Pressure 149/89 132/75 Blood Pressure [Left] O2 Sat by Pulse 97 96 Oximetry 01/09/18 01/09/18 01/09/18 23:16 23:38 23:56 Temperature Pulse Rate 102 H Pulse Rate [ 107 H 105 H Anterior Bilateral Throughout] Respiratory 28 H Rate Respiratory 16 14 Rate [Anterior Bilateral Throughout] Blood Pressure 132/75 Blood Pressure [Left] O2 Sat by Pulse Oximetry ED Medical Decision Making - Lab Data Result diagrams: 01/09/18 18:57 01/09/18 18:57 Lab Results 01/09/18 01/09/18 Range/Units 18:57 18:57 WBC 7.8 (4.5-11.0) K/mm3 RBC 4.97 (3.65-5.03) M/mm3 Hgb 13.6 (10.1-14.3) gm/dl Hct 41.5 (30.3-42.9) % MCV 84 (79-97) fl MCH 27 L (28-32) pg MCHC 33 (30-34) % RDW 16.0 H (13.2-15.2) % Plt Count 254 (140-440) K/mm3 Lymph % (Auto) 21.6 (13.4-35.0) % [place] % (Auto) 6.6 (0.0-7.3) % Eos % (Auto) 3.7 (0.0-4.3) % Baso % (Auto) 1.2 (0.0-1.8) % Lymph # 1.7 (1.2-5.4) K/mm3 [place] # 0.5 (0.0-0.8) K/mm3 Eos # 0.3 (0.0-0.4) K/mm3 Baso # 0.1 (0.0-0.1) K/mm3 Seg Neutrophils % 66.9 (40.0-70.0) % Seg Neutrophils # 5.2 (1.8-7.7) K/mm3 Sodium 137 (137-145) mmol/L Potassium 3.6 (3.6-5.0) mmol/L Chloride 98.4 (98-107) mmol/L Carbon Dioxide 27 (22-30) mmol/L Anion Gap 15 mmol/L BUN 6 L (7-17) mg/dL Creatinine 0.7 (0.7-1.2) mg/dL Estimated GFR > 60 ml/min BUN/Creatinine Ratio 9 % Glucose 124 H (65-100) mg/dL Calcium 9.5 (8.4-10.2) mg/dL - EKG Data -: EKG Interpreted by Me EKG shows normal: sinus rhythm, axis (qrs -35), QRS complexes (qrsd 99), ST-T waves (no stemi/t inv) Rate: tachycardia (113) - EKG Data When compared to previous EKG there are: no significant change - Radiology Data Radiology results: report reviewed Chest x-ray: No plain film evidence of acute process. Enlarged cardiac silhouette similar to previous study - Medical Decision Making copd exacerbation O2 dependent She continues to feel short of breath despite nebs, magnesium, and Solu-Medrol Will be admitted to the hospital for further COPD treatment remains tachy after nebs Hypertension Noncompliant with medications 1 month Received Norvasc 5 mg in the ED - Differential Diagnosis copd, pneumonia, bronchitis, asthma, pe Critical Care Time: No Critical care attestation.: If time is entered above; I have spent that time in minutes in the direct care of this critically ill patient, excluding procedure time. ED Disposition Clinical Impression: COPD exacerbation, HTN (hypertension), Noncompliance with medication regimen Disposition: OP ADMIT IP TO THIS HOSP Is pt being admited?: Yes Condition: Stable Time of Disposition: 01:17 (Dr Soler, hosp)
[2018-01-09] MEDS ORDERED: CATAPRES PO ONE (19:48)
[2018-01-09] MEDS ORDERED: NORVASC PO ONE (19:49)
--- NOTE | 2018-01-09 19:55 | XRay Report ---
FINAL REPORT EXAM: XR CHEST 1V AP HISTORY: Shortness of breath TECHNIQUE: Frontal portable view of the chest Comparison: Chest x-ray dated October 08, 2017 FINDINGS: There is prominence of the interstitial markings in both lungs similar in appearance to the previous study. There is no evidence of focal infiltrate, pneumothorax or pleural fluid collection. The cardiac silhouette is enlarged. There is a probable hiatal hernia. The thoracic aorta is unremarkable. The bony structures are not significantly changed in appearance with deformity of the proximal right humerus. IMPRESSION: 1. Prominence of the interstitial markings in both lungs similar in appearance to the previous study. No evidence of focal infiltrate 2. Enlarged cardiac silhouette. 3. Probable hiatal hernia. 4. Deformity proximal right humerus similar in appearance to the previous study..
[2018-01-09] MEDS ORDERED: MAGNESIUM SULFATE 2GM/50ML 2 GM/50 ML BAG IV ONE (20:00)
[2018-01-10] MEDS ORDERED: ALUM-MAG HYDROX-SIMETH 200-200-20MG/5ML PO ONE (01:16)
[2018-01-10] MEDS ORDERED: MILK OF MAGNESIA PO PRN (01:26)
[2018-01-10] MEDS ORDERED: TYLENOL PO PRN (01:26)
[2018-01-10] MEDS ORDERED: ROBITUSSIN PO ONE (01:40)
--- NOTE | 2018-01-10 02:34 | History and Physical Report ---
History of Present Illness Date of examination: 01/10/18 Date of admission: 01/10/2018 Chief complaint: wheezing, SOB History of present illness: Pt is a 77-year-old female with PMHx of COPD/asthma with home O2 dependent, DM type2, Depression, GERD and HTN who presents to the ER with c/o wheezing, SOB x3days. Patient also reports a dry cough for a few days, she states that she used her home nebulizer treatments and her prednisone without improvement in her symptoms, she decided to come to the ER for evaluation. Patient admits to recurrent exacerbation due to asthma, she denies any fever or chills, denies recent travelling, denies ill-contact, denies nausea or vomiting. Pt was initially evaluated in the ER, she was admitted for further evaluation and treatment. Past History Past Medical History: COPD, GERD, hypertension Past Surgical History: cholecystectomy Social history: lives with family Family history: no significant family history Medications and Allergies Allergies Allergy/AdvReac Type Severity Reaction Status Date / Time promethazine HCl AdvReac LEG PAIN Verified 08/22/17 23:38 [From Phenergan] Home Medications Medication Instructions Recorded Confirmed Last Taken Type Carvedilol [Coreg] 3.125 mg PO BID 02/08/13 01/09/14 01/08/14 History Esomeprazole Magnesium [NexIUM] 40 mg PO QDAY 02/08/13 01/09/14 01/09/14 History Fluticasone/Salmeterol(Nf) [Advair 1 puff PO BID 02/08/13 01/09/14 02/11/13 09: 00 History HFA 115-21 mcg] Hydrocodone Bit/Acetaminophen 1 each PO QDAY PRN 02/08/13 01/09/14 01/08/14 History [Lortab 7.5-500 mg] Montelukast [Singulair] 10 mg PO QPM 02/08/13 01/09/14 01/08/14 History PARoxetine [Paxil] 20 mg PO DAILY 02/08/13 01/09/14 01/08/14 History Prednisone [predniSONE 10 mg 10 mg PO QDAY 02/08/13 01/09/14 02/08/13 09:00 History (6-Day Pack, 21 Tabs)] Quinapril/Hydrochlorothiazide 1 each PO QDAY 02/08/13 01/09/14 01/08/14 History [Quinapril-Hctz 20-12.5 mg Tab] metFORMIN [Glucophage] 500 mg PO BID 02/08/13 01/09/14 01/08/14 History HYDROcodone/APAP 5-325 [[place] 1 each PO Q6HR PRN #20 tablet 04/11/13 01/09/14 Unknown Rx 5/325 mg] Ipratropium/Albuterol Sulfate 1 ampul IH Q8HRT #60 ampul.neb 04/11/13 01/09/14 Unknown Rx [DUONEB *Not for PRN Use*] Prednisone 40 mg PO QDAY #10 tablet 04/11/13 01/09/14 Unknown Rx Ondansetron [Zofran Odt] 4 mg PO Q6H PRN #10 tab.rapdis 01/09/14 Unknown Rx Sucralfate [Carafate] 1 gm PO Q6HR #40 tablet 01/09/14 Unknown Rx Doxycycline [Vibramycin CAP] 100 mg PO BID #14 capsule 07/08/16 Unknown Rx Prednisone [predniSONE 5 mg (6-Day 5 mg PO .TAPER #1 tab.ds.pk 07/08/16 Unknown Rx Pack, 21 Tabs)] Benzonatate [Tessalon Perles] 100 mg PO Q8HR PRN #30 capsule 12/20/16 Unknown Rx Prednisone [predniSONE 10 mg 10 mg PO .TAPER #1 tab.ds.pk 12/20/16 Unknown Rx (6-Day Pack, 21 Tabs)] Prednisone [predniSONE 10 mg 10 mg PO .TAPER #1 tab.ds.pk 01/10/17 Unknown Rx (6-Day Pack, 21 Tabs)] ALBUTEROL Inhaler (OR & NICU) 2 puff IH QDAY PRN #1 inha 06/17/17 Unknown Rx [ProAir HFA Inhaler] methylPREDNISolone [Medrol] 4 mg PO QDAY #1 tab.ds.pk 06/17/17 Unknown Rx Doxycycline [Vibramycin CAP] 100 mg PO Q12HR 7 Days #14 capsule 08/01/17 Unknown Rx Prednisone [predniSONE 10 mg 10 mg PO .TAPER #1 tab.ds.pk 08/01/17 Unknown Rx (6-Day Pack, 21 Tabs)] Prednisone [predniSONE 5 mg (6-Day 5 mg PO .TAPER #1 tab.ds.pk 08/23/17 Unknown Rx Pack, 21 Tabs)] Ipratropium/Albuterol Sulfate 1 ampul IH Q8HR #60 ampul.neb 09/02/17 Unknown Rx [DUONEB *Not for PRN Use*] Polymyxin B Sulf/Trimethoprim 2 drop OS TID 7 Days #10 ml 09/02/17 Unknown Rx [Polytrim Eye Drops] Albuterol Sulfate [Proair 90 mcg IH Q4HR PRN #2 aer.pow.ba 09/23/17 Unknown Rx Respiclick] Azithromycin [Zithromax] 250 mg PO QDAY #6 tablet 09/23/17 Unknown Rx Ipratropium [place] [Atrovent Hfa] 12.9 gm IH Q4HR #2 hfa.aer.ad 09/23/17 Unknown Rx predniSONE [Deltasone] 40 mg PO QDAY #8 tab 09/23/17 Unknown Rx Active Meds: Active Medications Acetaminophen (Tylenol) 650 mg PO Q4H PRN PRN Reason: Pain MILD(1-3)/Fever >100.5/DUMONT Albuterol/Ipratropium (Duoneb *Not For Prn Use*) 1 ampul IH Q6HRT BENNY Guaifenesin (Robitussin) 200 mg PO ONCE ONE Stop: 01/10/18 01:41 Heparin Sodium (Porcine) (Heparin) 5,000 unit SUB-Q Q8HR BENNY Levofloxacin/Dextrose (Levaquin 750mg/150ml) 750 mg in 150 mls @ 100 mls/hr IV Q24HR BENNY; Protocol Magnesium Hydroxide (Milk Of Magnesia) 30 ml PO Q4H PRN PRN Reason: Constipation Methylprednisolone Sodium Succinate (Solu-Medrol) 60 mg IV Q8H BENNY Ondansetron HCl (Zofran) 4 mg IV Q8H PRN PRN Reason: Nausea And Vomiting Sodium Chloride (Sodium Chloride Flush Syringe 10 Ml) 10 ml IV BID BENNY Sodium Chloride (Sodium Chloride Flush Syringe 10 Ml) 10 ml IV PRN PRN PRN Reason: LINE FLUSH Review of Systems Respiratory: cough, shortness of breath, wheezing, home oxygen Exam - Constitutional Vitals: Temp Pulse Resp BP Pulse Ox 99.3 F 111 H 35 H 138/64 94 01/09/18 18:58 01/10/18 01:30 01/10/18 01:30 01/10/18 01:30 01/10/18 01:30 General appearance: Present: mild distress - EENT Eyes: Present: EOM intact ENT: hearing intact - Neck Neck: Present: normal ROM - Respiratory Respiratory effort: labored Respiratory: bilateral: diminished - Cardiovascular Rhythm: regular (tachycardia) - Extremities Extremities: pulses symmetrical, normal color Peripheral Pulses: within normal limits - Abdominal General gastrointestinal: Present: non-tender, non-distended Female genitourinary: Present: normal - Rectal Rectal Exam: deferred - Integumentary Integumentary: Present: warm, dry - Musculoskeletal Musculoskeletal: strength equal bilaterally - Psychiatric Psychiatric: appropriate mood/affect, cooperative - Neurologic Neurologic: moves all extremities Results - Labs CBC & Chem 7: 01/09/18 18:57 01/09/18 18:57 Labs: Laboratory Last Values WBC 7.8 K/mm3 (4.5-11.0) 01/09/18 18:57 RBC 4.97 M/mm3 (3.65-5.03) 01/09/18 18:57 Hgb 13.6 gm/dl (10.1-14.3) 01/09/18 18:57 Hct 41.5 % (30.3-42.9) 01/09/18 18:57 MCV 84 fl (79-97) 01/09/18 18:57 MCH 27 pg (28-32) L 01/09/18 18:57 MCHC 33 % (30-34) 01/09/18 18:57 RDW 16.0 % (13.2-15.2) H 01/09/18 18:57 Plt Count 254 K/mm3 (140-440) 01/09/18 18:57 Lymph % (Auto) 21.6 % (13.4-35.0) 01/09/18 18:57 [place] % (Auto) 6.6 % (0.0-7.3) 01/09/18 18:57 Eos % (Auto) 3.7 % (0.0-4.3) 01/09/18 18:57 Baso % (Auto) 1.2 % (0.0-1.8) 01/09/18 18:57 Lymph # 1.7 K/mm3 (1.2-5.4) 01/09/18 18:57 [place] # 0.5 K/mm3 (0.0-0.8) 01/09/18 18:57 Eos # 0.3 K/mm3 (0.0-0.4) 01/09/18 18:57 Baso # 0.1 K/mm3 (0.0-0.1) 01/09/18 18:57 Seg Neutrophils % 66.9 % (40.0-70.0) 01/09/18 18:57 Seg Neutrophils # 5.2 K/mm3 (1.8-7.7) 01/09/18 18:57 Sodium 137 mmol/L (137-145) 01/09/18 18:57 Potassium 3.6 mmol/L (3.6-5.0) 01/09/18 18:57 Chloride 98.4 mmol/L (98-107) 01/09/18 18:57 Carbon Dioxide 27 mmol/L (22-30) 01/09/18 18:57 Anion Gap 15 mmol/L 01/09/18 18:57 BUN 6 mg/dL (7-17) L 01/09/18 18:57 Creatinine 0.7 mg/dL (0.7-1.2) 01/09/18 18:57 Estimated GFR > 60 ml/min 01/09/18 18:57 BUN/Creatinine Ratio 9 % 01/09/18 18:57 Glucose 124 mg/dL (65-100) H 01/09/18 18:57 Calcium 9.5 mg/dL (8.4-10.2) 01/09/18 18:57 Assessment and Plan Assessment and plan: 1. COPD/Asthma with acute exacerbation 2. DM type 2 3. Hypertension 4. GERD 5. Depression Plan: Admit to [facility] Albuterol/Atrovent nebs q6hr Monitor VS with O2 Continue O2 at 2-3l n/c to keep O2 > 92% Solumedrol IV 60 mg q8hr Levaquin 750mg IV QD PRN Robutussin, IV Zofran, Tylenol Glycemic management with low dose insulin per sliding scale Resume home meds DVT prophylaxis with Heparin Pt's condition, plan of care was d/w attending Advance Directives: Yes VTE prophylaxis?: Chemical Plan of care discussed with patient/family: Yes
[2018-01-10] MEDS ORDERED: PROAIR IH PRN (03:44)
[2018-01-10] MEDS ORDERED: NON-FORMULARY (Albuterol Sulfate [Proair Respiclick] 90 MCG) IH PRN (03:44)
[2018-01-10] MEDS: DUONEB *Not for PRN Use IH SCH ×5 (03:58→19:58)
[2018-01-10] MEDS ORDERED: PROVENTIL IH PRN (04:24)
[2018-01-10] MEDS: SOLU-Medrol IV SCH ×3 (05:12→20:08)
[2018-01-10] MEDS: HEPARIN SUB-Q SCH ×3 (05:13→22:04)
[2018-01-10] MEDS: CARAFATE PO SCH ×4 (05:14→22:04)
[2018-01-10] MEDS ORDERED: NON-FORMULARY (Ipratropium Bromide [Atrovent Hfa] 12.9 GM) IH SCH (06:00)
[2018-01-10] MEDS ORDERED: ATROVENT IH SCH (08:00)
[2018-01-10] MEDS: GLUCOPHAGE PO SCH ×2 (08:17→17:04)
[2018-01-10] MEDS: HumuLIN R SUB-Q SCH ×4 (08:18→22:04)
[2018-01-10] MEDS: PULMICORT IH SCH ×2 (08:51→19:57)
[2018-01-10] MEDS: BROVANA NEBU IH SCH ×2 (08:51→19:58)
[2018-01-10] MEDS: PAXIL PO SCH (09:59)
[2018-01-10] MEDS: PROTONIX PO SCH (09:59)
[2018-01-10] MEDS ORDERED: FLUTICASONE PO SCH (10:00)
[2018-01-10] MEDS ORDERED: SALMETEROL PO SCH (10:00)
[2018-01-10] MEDS ORDERED: LEVAQUIN 750MG/150ML 750 MG/150 ML BAG IV SCH (10:00)
[2018-01-10] MEDS: COREG PO SCH ×2 (10:00→22:04)
[2018-01-10] MEDS: HCTZ PO SCH (10:00)
[2018-01-10] MEDS: ZESTRIL PO SCH (10:00)
[2018-01-10] MEDS: SODIUM CHLORIDE FLUSH SYRINGE 10 ML IV SCH ×2 (10:01→22:05)
[2018-01-10] MEDS: ZOFRAN IV PRN ×2 (11:50→20:05)
[2018-01-10] MEDS: NORCO 5/325 PO PRN ×2 (13:00→20:10)
[2018-01-10] MEDS ORDERED: XANAX PO PRN (13:13)
[2018-01-10] MEDS: ATIVAN PO PRN ×2 (16:47→22:04)
[2018-01-10] MEDS: SINGULAIR PO SCH (17:04)
[2018-01-11] MEDS: CARAFATE PO SCH ×5 (00:03→22:54)
[2018-01-11] MEDS: SOLU-Medrol IV SCH ×3 (04:56→20:00)
[2018-01-11] MEDS: DUONEB *Not for PRN Use IH SCH ×6 (05:06→23:16)
[2018-01-11] MEDS: HEPARIN SUB-Q SCH ×3 (05:11→22:55)
[2018-01-11] MEDS: ZOFRAN IV PRN ×2 (05:23→12:19)
[2018-01-11] MEDS: HumuLIN R SUB-Q SCH ×3 (08:09→16:57)
[2018-01-11] MEDS: GLUCOPHAGE PO SCH ×2 (08:10→16:56)
[2018-01-11] MEDS: BROVANA NEBU IH SCH ×2 (08:48→19:44)
[2018-01-11] MEDS: PULMICORT IH SCH ×2 (08:48→19:44)
[2018-01-11] MEDS: LEVAQUIN PO SCH (10:11)
[2018-01-11] MEDS: COREG PO SCH ×2 (10:12→22:57)
[2018-01-11] MEDS: HCTZ PO SCH (10:13)
[2018-01-11] MEDS: PAXIL PO SCH (10:13)
[2018-01-11] MEDS: ZESTRIL PO SCH (10:15)
[2018-01-11] MEDS: SODIUM CHLORIDE FLUSH SYRINGE 10 ML IV SCH ×2 (10:16→22:00)
[2018-01-11] MEDS: PROTONIX PO SCH (10:17)
[2018-01-11] MEDS: SODIUM CHLORIDE FLUSH SYRINGE 10 ML IV PRN (12:17)
--- NOTE | 2018-01-11 13:34 | Progress Note ---
Assessment and Plan Assessment and plan: 1. COPD/Asthma with acute exacerbation acute on chronic hypoxic resp failure FTT 2. DM type 2 3. Hypertension 4. GERD 5. Depression Continue O2 at 2-3l n/c to keep O2 > 92% Solumedrol IV 60 mg q8hr Levaquin 750mg IV QD PRN Robutussin, IV Zofran, Tylenol Glycemic management with low dose insulin per sliding scale Resume home meds DVT prophylaxis with Heparin patient interested in home hospice, she is not doing well at home discussed with [facility] History Interval history: Review of systems Constitutional: No fevers, no malaise, no joint pains CVS: No chest pain, no orthopnea, no dyspnea on exertion, no pedal edema GI: No abdominal pain, no diarrhea, no vomiting, no constipation Respiratory: No shortness of breath, no wheezing, no coughing Hospitalist Physical - Physical exam Narrative exam: General.: Appears well, no distress, nontoxic HEENT: Moist mucous membranes, extraocular muscles intact, no lymphadenopathy Neck: supple Cardiac: S1-S2 heard Lungs: clear to auscultation bilaterally Abdomen: soft , nontender, nondistended, bowel sounds positive Extremities: no edema clubbing or cyanosis Skin: no rash or lesions Neurologic: no gross focal deficits Psych: appropriate behavior, appropriate mood, corporative, judgment intact - Constitutional Vitals: Temp Pulse Resp BP Pulse Ox 98.5 F 68 20 113/59 95 01/11/18 07:54 01/11/18 11:00 01/11/18 10:00 01/11/18 10:15 01/11/18 10:00 General appearance: Present: mild distress Results - Labs CBC & Chem 7: 01/09/18 18:57 01/09/18 18:57 Labs: Laboratory Last Values WBC 7.8 K/mm3 (4.5-11.0) 01/09/18 18:57 RBC 4.97 M/mm3 (3.65-5.03) 01/09/18 18:57 Hgb 13.6 gm/dl (10.1-14.3) 01/09/18 18:57 Hct 41.5 % (30.3-42.9) 01/09/18 18:57 MCV 84 fl (79-97) 01/09/18 18:57 MCH 27 pg (28-32) L 01/09/18 18:57 MCHC 33 % (30-34) 01/09/18 18:57 RDW 16.0 % (13.2-15.2) H 01/09/18 18:57 Plt Count 254 K/mm3 (140-440) 01/09/18 18:57 Lymph % (Auto) 21.6 % (13.4-35.0) 01/09/18 18:57 [place] % (Auto) 6.6 % (0.0-7.3) 01/09/18 18:57 Eos % (Auto) 3.7 % (0.0-4.3) 01/09/18 18:57 Baso % (Auto) 1.2 % (0.0-1.8) 01/09/18 18:57 Lymph # 1.7 K/mm3 (1.2-5.4) 01/09/18 18:57 [place] # 0.5 K/mm3 (0.0-0.8) 01/09/18 18:57 Eos # 0.3 K/mm3 (0.0-0.4) 01/09/18 18:57 Baso # 0.1 K/mm3 (0.0-0.1) 01/09/18 18:57 Seg Neutrophils % 66.9 % (40.0-70.0) 01/09/18 18:57 Seg Neutrophils # 5.2 K/mm3 (1.8-7.7) 01/09/18 18:57 Sodium 137 mmol/L (137-145) 01/09/18 18:57 Potassium 3.6 mmol/L (3.6-5.0) 01/09/18 18:57 Chloride 98.4 mmol/L (98-107) 01/09/18 18:57 Carbon Dioxide 27 mmol/L (22-30) 01/09/18 18:57 Anion Gap 15 mmol/L 01/09/18 18:57 BUN 6 mg/dL (7-17) L 01/09/18 18:57 Creatinine 0.7 mg/dL (0.7-1.2) 01/09/18 18:57 Estimated GFR > 60 ml/min 01/09/18 18:57 BUN/Creatinine Ratio 9 % 01/09/18 18:57 Glucose 124 mg/dL (65-100) H 01/09/18 18:57 POC Glucose 153 (70-105) H 01/11/18 11:38 Calcium 9.5 mg/dL (8.4-10.2) 01/09/18 18:57
[2018-01-11] MEDS: SINGULAIR PO SCH (17:16)
[2018-01-11] MEDS: TESSALON PERLES PO PRN (23:35)
[2018-01-12] MEDS: NORCO 5/325 PO PRN ×2 (00:01→13:44)
[2018-01-12] MEDS: ATIVAN PO PRN (00:02)
[2018-01-12] MEDS: DUONEB *Not for PRN Use IH SCH ×3 (01:06→14:42)
[2018-01-12] MEDS: SOLU-Medrol IV SCH ×2 (05:36→11:52)
[2018-01-12] MEDS: HumuLIN R SUB-Q SCH ×4 (05:39→17:30)
[2018-01-12] MEDS: GLUCOPHAGE PO SCH (08:18)
[2018-01-12] MEDS: PULMICORT IH SCH (09:17)
[2018-01-12] MEDS: BROVANA NEBU IH SCH (09:18)
[2018-01-12] MEDS: PAXIL PO SCH (11:01)
[2018-01-12] MEDS: PROTONIX PO SCH (11:01)
[2018-01-12] MEDS: LEVAQUIN PO SCH (11:02)
[2018-01-12] MEDS: ZESTRIL PO SCH (11:03)
[2018-01-12] MEDS: SODIUM CHLORIDE FLUSH SYRINGE 10 ML IV SCH (11:03)
[2018-01-12] MEDS: HCTZ PO SCH (11:04)
[2018-01-12] MEDS: COREG PO SCH (11:04)
--- NOTE | 2018-01-12 11:26 | Discharge Summary ---
Providers - Providers Date of Admission: 01/10/18 01:26 Attending physician: LISA DICKINSON MD Primary care physician: MORGAN EMERY MD Hospitalization Condition: Stable Hospital course: 1. COPD/Asthma with acute exacerbation acute on chronic hypoxic resp failure FTT 2. DM type 2 3. Hypertension 4. GERD 5. Depression Continue O2 at 2-3l n/c to keep O2 > 92% Solumedrol IV 60 mg q8hr Levaquin 750mg IV QD PRN Robutussin, IV Zofran, Tylenol Glycemic management with low dose insulin per sliding scale Resume home meds DVT prophylaxis with Heparin patient interested in home hospice, she is not doing well at home discussed with [facility] Disposition: DC-50 TO HOSPICE (HOME) Exam - Constitutional Vitals: Temp Pulse Resp BP Pulse Ox 98.4 F 82 18 110/44 98 01/12/18 07:41 01/12/18 11:03 01/12/18 09:46 01/12/18 11:03 01/12/18 09:21 Plan Follow up with: MORGAN EMERY MD [Primary Care Provider] - 7 Days
[2018-01-12] MEDS: TESSALON PERLES PO PRN (11:52)
[2018-01-12] MEDS: CARAFATE PO SCH ×2 (11:52)
[2018-01-12] MEDS: SODIUM CHLORIDE FLUSH SYRINGE 10 ML IV PRN ×2 (11:53→13:45)
[2018-01-12] MEDS: ZOFRAN IV PRN (13:44)
[2018-01-12] MEDS: HEPARIN SUB-Q SCH (13:45)
[2018-01-12 13:47] VITALS: BP 109/52
[2018-01-12] MEDS ORDERED: ALUM-MAG HYDROX-SIMETH 200-200-20MG/5ML PO PRN (14:30)
== END 2018-01-12 17:00 | disposition hospice, home (50) | DRG 189 ==
LOC: ED 18:36 → 4A 01-10 01:26 → 2B-ACE 01-10 15:37
PROVIDERS: ADMIT Internal Medicine; ATTEND Internal Medicine
DX: J96.21 Acute and chronic respiratory failure with hypoxia (principal); E11.9 Type 2 diabetes mellitus without complications; J44.1 Chronic obstructive pulmonary disease with (acute) exacerbation; F32.9 Major depressive disorder, single episode, unspecified; K21.9 Gastro-esophageal reflux disease without esophagitis; J45.901 Unspecified asthma with (acute) exacerbation; R62.7 Adult failure to thrive; I10 Essential (primary) hypertension; Z51.5 Encounter for palliative care; Z90.49 Acquired absence of other specified parts of digestive tract; Z99.81 Dependence on supplemental oxygen; Z91.14 Patient's other noncompliance with medication regimen; Z88.8 Allergy status to other drugs, medicaments and biological substances; Z79.899 Other long term (current) drug therapy; Z79.84 Long term (current) use of oral hypoglycemic drugs; Z79.51 Long term (current) use of inhaled steroids
CPT/HCPCS: 36415; 71045; 80048; 82962; 85025; 93005; 93010; 94640; 94760; 96365; 96375; J1644; J1815; J1956; J2405; J2920; J2930; J3475

== ENCOUNTER 2019-08-21 19:23 | Inpatient (IN) | payer MEDICARE, MEDICAID ==
[2019-08-21] MEDS ORDERED: dilTIAZem 25 MG/5 ML INJ IV ONE (20:39)
[2019-08-21] MEDS ORDERED: methylPREDNISolone Sod Succinate 125 MG/2 ML INJ IV ONE (20:42)
[2019-08-21 20:56] LABS: Hematocrit 34.1 % (30.3-42.9); Mean Corpuscular HGB Conc 32 % (30-34); Mean Corpuscular Volume 78 fl (79-97); Platelet Count 271 K/mm3 (140-440); Red Blood Count 4.38 M/mm3 (3.65-5.03); Red Cell Distribution Width 16.4 % (13.2-15.2)
[2019-08-21] MEDS ORDERED: dilTIAZem/D5W 100 MG/100 ML BAG IV SCH (21:00)
[2019-08-21 21:05] LABS: INR 1.59 (0.87-1.13); Partial Thromboplastin Time 38.6 Sec. (24.2-36.6)
[2019-08-21 21:15] LABS: Albumin 2.6 g/dL (3.9-5); BUN/Creatinine Ratio 12; Blood Urea Nitrogen 6 mg/dL (7-17); Calcium 8.3 mg/dL (8.4-10.2); Hemolysis Index 115
[2019-08-21 21:17] LABS: Alanine Aminotransferase 17 units/L (7-56)
[2019-08-21] MEDS ORDERED: POTASSIUM CHLORIDE ER 20 MEQ TAB PO ONE (21:27)
[2019-08-21 21:28] LABS: Chol/HDL Ratio 1.75 %
--- NOTE | 2019-08-21 21:30 | Emergency Department Report ---
ED General Adult HPI - General Chief complaint: Extremity Problem,Nontraumatic Stated complaint: SWOLLEN FEET Time Seen by Provider: 08/21/19 20:22 Source: EMS, old records reviewed ( admission and work-up last month then included negative CT angio for PE and negative bilateral Dopplers for DVT) Mode of arrival: Stretcher Limitations: Other - History of Present Illness Initial comments: 79-year-old female with a past medical history of paroxysmal atrial fibrillation on Eliquis, dementia, COPD 3L of home O2, type 2 diabetes, and hypertension presents to the hospital with complaints of leg edema as per triage. Patient complains of being short of breath during my examination. She denies any pain. She is requesting something to eat. She is oriented to self only and has underlying dementia. Patient is speaking a lot without signs of respiratory distress noted to be in A. fib with RVR rate 160s on the monitor with a saturation 100% on 3L. Severity scale (0 -10): 0 - Related Data Home Medications Medication Instructions Recorded Confirmed Last Taken Esomeprazole Magnesium [NexIUM] 40 mg PO QDAY 02/08/13 07/27/19 01/09/14 Montelukast [Singulair] 10 mg PO QPM 02/08/13 07/27/19 01/08/14 PARoxetine [Paxil] 20 mg PO DAILY 02/08/13 07/27/19 01/08/14 metFORMIN [Glucophage] 500 mg PO BID 02/08/13 07/27/19 01/08/14 Previous Rx's Medication Instructions Recorded Last Taken Type Benzonatate [Tessalon Perles] 100 mg PO Q8HR PRN #30 capsule 12/20/16 Unknown Rx Polymyxin B Sulf/Trimethoprim 2 drop OS TID 7 Days #10 ml 09/02/17 Unknown Rx [Polytrim Eye Drops] Fluticasone/Salmeterol(Nf) [Advair 1 puff PO BID #1 hfa.aer.ad 01/12/18 Unknown Rx HFA 115-21 mcg] Ipratropium/Albuterol Sulfate 1 ampul IH Q8HRT #120 ampul.neb 01/12/18 Unknown Rx [DUONEB *Not for PRN Use*] Albuterol Sulfate [Proventil Hfa] 2 puff IH Q4HR PRN #1 hfa.aer.ad 04/08/19 Unknown Rx dilTIAZem CD [Cardizem CD] 240 mg PO QDAY #30 capsule 04/24/19 Unknown Rx Apixaban [Eliquis] 5 mg PO Q12HR #60 tablet 08/01/19 Unknown Rx Prednisone [predniSONE 10 mg 10 mg PO .TAPER #1 tab.ds.pk 08/01/19 Unknown Rx (6-Day Pack, 21 Tabs)] Allergies Allergy/AdvReac Type Severity Reaction Status Date / Time promethazine HCl AdvReac LEG PAIN Verified 08/22/17 23:38 [From Phenergan] ED Review of Systems ROS: Stated complaint: SWOLLEN FEET Other details as noted in HPI ED Past Medical Hx - Past Medical History Previous Medical History?: Yes Hx Hypertension: Yes Hx Diabetes: Yes Hx Arthritis: Yes Hx Asthma: Yes Hx COPD: Yes Additional medical history: AFIB - Surgical History Past Surgical History?: Yes Hx Cholecystectomy: Yes Hx Breast Surgery: Yes (RIGHT) - Social History Smoking Status: Never Smoker - Medications Home Medications: Home Medications Medication Instructions Recorded Confirmed Last Taken Type Esomeprazole Magnesium [NexIUM] 40 mg PO QDAY 02/08/13 07/27/19 01/09/14 History Montelukast [Singulair] 10 mg PO QPM 02/08/13 07/27/19 01/08/14 History PARoxetine [Paxil] 20 mg PO DAILY 02/08/13 07/27/19 01/08/14 History metFORMIN [Glucophage] 500 mg PO BID 02/08/13 07/27/19 01/08/14 History Benzonatate [Tessalon Perles] 100 mg PO Q8HR PRN #30 capsule 12/20/16 07/27/19 Unknown Rx Polymyxin B Sulf/Trimethoprim 2 drop OS TID 7 Days #10 ml 09/02/17 07/27/19 Unknown Rx [Polytrim Eye Drops] Fluticasone/Salmeterol(Nf) [Advair 1 puff PO BID #1 hfa.aer.ad 01/12/18 07/27/19 Unknown Rx HFA 115-21 mcg] Ipratropium/Albuterol Sulfate 1 ampul IH Q8HRT #120 ampul.neb 01/12/18 07/27/19 Unknown Rx [DUONEB *Not for PRN Use*] Albuterol Sulfate [Proventil Hfa] 2 puff IH Q4HR PRN #1 hfa.aer.ad 04/08/19 07/27/19 Unknown Rx dilTIAZem CD [Cardizem CD] 240 mg PO QDAY #30 capsule 04/24/19 07/27/19 Unknown Rx Apixaban [Eliquis] 5 mg PO Q12HR #60 tablet 08/01/19 Unknown Rx Prednisone [predniSONE 10 mg 10 mg PO .TAPER #1 tab.ds.pk 08/01/19 Unknown Rx (6-Day Pack, 21 Tabs)] ED Physical Exam - General Limitations: Other - Other Other exam information: General: No acute distress Head: Atraumatic Eyes: normal appearance ENT: Moist mucous membranes Neck: Normal appearance, no midline tenderness Chest: No wheezing, no tachypnea, mild crackles at left base CV: Regular rate and rhythm Abdomen: Soft, normal bowel sounds, nontender, nondistended, no rebound or guarding Back: Normal inspection Extremity: Bilateral lower extremity 2+ pitting edema right leg slightly larger than the Neuro: Alert O to self only, no facial asymmetry, speech clear, no gross motor sensory deficit Psych: dementia, constant talking and requests Skin: No rash ED Course Vital Signs 08/21/19 08/21/19 08/21/19 19:43 19:46 19:50 Temperature 98.0 F Pulse Rate 158 H 169 H 150 H Respiratory 19 22 20 Rate Blood Pressure 145/107 145/107 147/105 Blood Pressure [Left] O2 Sat by Pulse 99 100 100 Oximetry 08/21/19 08/21/19 08/21/19 20:00 20:16 20:30 Temperature Pulse Rate 176 H 167 H 177 H Respiratory 19 23 25 H Rate Blood Pressure 145/107 104/46 104/46 Blood Pressure [Left] O2 Sat by Pulse 100 100 100 Oximetry 08/21/19 08/21/19 08/21/19 20:34 20:46 20:50 Temperature Pulse Rate 144 H 161 H 144 H Respiratory 22 32 H Rate Blood Pressure 104/46 104/46 Blood Pressure 104/46 [Left] O2 Sat by Pulse 99 100 Oximetry 08/21/19 08/21/19 08/21/19 21:00 21:16 21:30 Temperature Pulse Rate 100 H 107 H 117 H Respiratory 14 20 25 H Rate Blood Pressure 104/46 109/53 109/53 Blood Pressure [Left] O2 Sat by Pulse 98 99 100 Oximetry 08/21/19 08/21/19 08/21/19 21:46 22:00 22:15 Temperature Pulse Rate 125 H 124 H 111 H Respiratory 21 24 27 H Rate Blood Pressure 107/52 116/53 111/63 Blood Pressure [Left] O2 Sat by Pulse 98 98 96 Oximetry 08/21/19 08/21/19 08/21/19 22:30 22:45 22:49 Temperature Pulse Rate 136 H 114 H 121 H Respiratory 19 31 H 28 H Rate Blood Pressure 102/47 110/47 110/47 Blood Pressure [Left] O2 Sat by Pulse 96 96 97 Oximetry 08/21/19 08/21/19 08/21/19 23:00 23:03 23:15 Temperature Pulse Rate 74 90 81 Respiratory 24 22 23 Rate Blood Pressure 108/47 108/47 98/50 Blood Pressure [Left] O2 Sat by Pulse 96 97 95 Oximetry 08/21/19 08/21/19 08/22/19 23:30 23:45 00:00 Temperature Pulse Rate 87 101 H 91 H Respiratory 19 21 24 Rate Blood Pressure 121/47 105/53 107/53 Blood Pressure [Left] O2 Sat by Pulse 97 90 93 Oximetry 08/22/19 00:15 Temperature Pulse Rate 85 Respiratory 26 H Rate Blood Pressure 104/53 Blood Pressure [Left] O2 Sat by Pulse 89 Oximetry - Consultations Consultation #1: 08/21/19 21:40 case d/w DR Parrish, afib rvr mild elevation in trop repeat pending. will consult. will need call back if trop incr ED Medical Decision Making - Lab Data Result diagrams: 08/22/19 02:37 08/21/19 20:41 Lab Results 08/21/19 08/21/19 08/21/19 Range/Units 20:41 20:41 20:41 WBC 11.1 H (4.5-11.0) K/mm3 RBC 4.38 (3.65-5.03) M/mm3 Hgb 11.0 (10.1-14.3) gm/dl Hct 34.1 (30.3-42.9) % MCV 78 L (79-97) fl MCH 25 L (28-32) pg MCHC 32 (30-34) % RDW 16.4 H (13.2-15.2) % Plt Count 271 (140-440) K/mm3 PT 19.0 H (12.2-14.9) Sec. INR 1.59 H (0.87-1.13) APTT 38.6 H (24.2-36.6) Sec. Sodium 131 L (137-145) mmol/L Potassium 3.2 L (3.6-5.0) mmol/L Chloride 88.7 L (98-107) mmol/L Carbon Dioxide 30 (22-30) mmol/L Anion Gap 16 mmol/L BUN 6 L (7-17) mg/dL Creatinine 0.5 L (0.7-1.2) mg/dL Estimated GFR > 60 ml/min BUN/Creatinine Ratio 12 % Glucose 109 H (65-100) mg/dL Calcium 8.3 L (8.4-10.2) mg/dL Total Bilirubin 1.20 (0.1-1.2) mg/dL AST 45 H (5-40) units/L ALT 17 (7-56) units/L Alkaline Phosphatase 77 (35-129) units/L Troponin T (0.00-0.029) ng/mL NT-Pro-B Natriuret Pep 1347 H (0-900) pg/mL Total Protein 5.8 L (6.3-8.2) g/dL Albumin 2.6 L (3.9-5) g/dL Albumin/Globulin Ratio 0.8 % Triglycerides (2-149) mg/dL Cholesterol (50-199) mg/dL LDL Cholesterol Direct (50-130) mg/dL HDL Cholesterol (40-59) mg/dL Cholesterol/HDL Ratio % 05/16/20 Range/Units 20:47 WBC (4.5-11.0) K/mm3 RBC (3.65-5.03) M/mm3 Hgb (10.1-14.3) gm/dl Hct (30.3-42.9) % MCV (79-97) fl MCH (28-32) pg MCHC (30-34) % RDW (13.2-15.2) % Plt Count (140-440) K/mm3 PT (12.2-14.9) Sec. INR (0.87-1.13) APTT (24.2-36.6) Sec. Sodium (137-145) mmol/L Potassium (3.6-5.0) mmol/L Chloride (98-107) mmol/L Carbon Dioxide (22-30) mmol/L Anion Gap mmol/L BUN (7-17) mg/dL Creatinine (0.7-1.2) mg/dL Estimated GFR ml/min BUN/Creatinine Ratio % Glucose (65-100) mg/dL Calcium (8.4-10.2) mg/dL Total Bilirubin (0.1-1.2) mg/dL AST (5-40) units/L ALT (7-56) units/L Alkaline Phosphatase (35-129) units/L Troponin T 0.030 H (0.00-0.029) ng/mL NT-Pro-B Natriuret Pep (0-900) pg/mL Total Protein (6.3-8.2) g/dL Albumin (3.9-5) g/dL Albumin/Globulin Ratio % Triglycerides 81 (2-149) mg/dL Cholesterol 112 (50-199) mg/dL LDL Cholesterol Direct 48 L (50-130) mg/dL HDL Cholesterol 64 H (40-59) mg/dL Cholesterol/HDL Ratio 1.75 % - EKG Data -: EKG Interpreted by Me (afib vs mat rate 136 ) EKG shows normal: ST-T waves (no stemi) - Radiology Data Radiology results: report reviewed (cxr naf) - Medical Decision Making Patient complains of shortness of breath but does not appear to have any respiratory distress in the ED. EKG reveals A. fib with RVR Cardizem bolus and drip initiated in the ED with improvement in heart rate. Chest x-ray negative for acute findings. Patient's O2 sat 100% on 3 L of O2. Bilateral leg edema noted. Patient received potassium p.o. for mild hypokalemia. Case discussed with cardiology regarding mild troponin elevation with repeat pending. They will consult. Hospitalist informed for admission iv mag ordered for mild hypomagnesemia repeat trop trending downward Critical Care Time: No Critical care attestation.: If time is entered above; I have spent that time in minutes in the direct care of this critically ill patient, excluding procedure time. ED Disposition Clinical Impression: Dementia, Atrial fibrillation with RVR, snf (current) use of anticoagulants, Troponin level elevated, COPD (chronic obstructive pulmonary disease), Leg edema, Hypokalemia, Hypomagnesemia Disposition: DC-09 OP ADMIT IP TO THIS HOSP Is pt being admited?: Yes Condition: Stable Time of Disposition: 21:48 (Dr Horne/hosp)
[2019-08-21] MEDS ORDERED: MAGNESIUM SULFATE 2 GM/50 ML BAG IV ONE (22:06)
[2019-08-21] MEDS ORDERED: ONDANSETRON 4 MG/2 ML INJ IV PRN (22:17)
[2019-08-21] MEDS ORDERED: DEXTROSE 50% IN WATER (25GM) 50 ML SYRINGE IV PRN (22:17)
[2019-08-21] MEDS ORDERED: MAGNESIUM HYDROXIDE (MOM) ORAL LIQD UDC PO PRN (22:17)
[2019-08-21 22:28] LABS: Basophils % (Manual) 0 % (0.0-1.8); Eosinophils % (Manual) 0 % (0.0-4.3); Hypochromasia 1+; Total Cells Counted 100
--- NOTE | 2019-08-21 22:30 | History and Physical Report ---
History of Present Illness Date of examination: 08/21/19 Date of admission: 08/21/2019 Chief complaint: Lower extremity swelling History of present illness: 79-year-old female with known history of dementia, COPD on 3 L of oxygen at home, diabetes mellitus and paroxysmal atrial fibrillation presented to the emergency room today with a complaint of lower extremity swelling. She also complained of shortness of breath upon arrival in the emergency room. She could not give a very good history as she is demented and only oriented to self. She denies any chest pain, no nausea vomiting and no diarrhea. No headache or dizziness. Upon arrival in the emergency room she was found to be in atrial fibrillation with RVR with a rate of about 160. She has been on Eliquis for anticoagulation for A. fib. Work-up reveals elevated troponin, and hypokalemia. She was started on Cardizem drip in the emergency room. Past History Past Medical History: atrial fib, arthritis, COPD, diabetes, hypertension Past Surgical History: cholecystectomy, Other (Right breast surgery) Social history: no significant social history Family history: no significant family history Medications and Allergies Allergies Allergy/AdvReac Type Severity Reaction Status Date / Time promethazine HCl AdvReac LEG PAIN Verified 08/22/17 23:38 [From Phenergan] Home Medications Medication Instructions Recorded Confirmed Last Taken Type Esomeprazole Magnesium [NexIUM] 40 mg PO QDAY 02/08/13 07/27/19 01/09/14 History Montelukast [Singulair] 10 mg PO QPM 02/08/13 07/27/19 01/08/14 History PARoxetine [Paxil] 20 mg PO DAILY 02/08/13 07/27/19 01/08/14 History metFORMIN [Glucophage] 500 mg PO BID 02/08/13 07/27/19 01/08/14 History Benzonatate [Tessalon Perles] 100 mg PO Q8HR PRN #30 capsule 12/20/16 07/27/19 Unknown Rx Polymyxin B Sulf/Trimethoprim 2 drop OS TID 7 Days #10 ml 09/02/17 07/27/19 Unknown Rx [Polytrim Eye Drops] Fluticasone/Salmeterol(Nf) [Advair 1 puff PO BID #1 hfa.aer.ad 01/12/18 07/27/19 Unknown Rx HFA 115-21 mcg] Ipratropium/Albuterol Sulfate 1 ampul IH Q8HRT #120 ampul.neb 01/12/18 07/27/19 Unknown Rx [DUONEB *Not for PRN Use*] Albuterol Sulfate [Proventil Hfa] 2 puff IH Q4HR PRN #1 hfa.aer.ad 04/08/19 07/27/19 Unknown Rx dilTIAZem CD [Cardizem CD] 240 mg PO QDAY #30 capsule 04/24/19 07/27/19 Unknown Rx Apixaban [Eliquis] 5 mg PO Q12HR #60 tablet 08/01/19 Unknown Rx Prednisone [predniSONE 10 mg 10 mg PO .TAPER #1 tab.ds.pk 08/01/19 Unknown Rx (6-Day Pack, 21 Tabs)] Active Meds: Active Medications Diltiazem HCl (Cardizem/D5w 100mg/100ml) 100 mg in 100 mls @ 5 mls/hr IV TITR BENNY; Protocol Last Admin: 08/21/19 21:23 Dose: 5 mg/hr, 5 mls/hr Documented by: Magnesium Sulfate (Magnesium Sulfate 2gm/50ml) 2 gm in 50 mls @ 100 mls/hr IV ONCE ONE Stop: 08/21/19 22:35 Exam - Constitutional Vitals: Temp Pulse Resp BP Pulse Ox 98.0 F 144 H 22 104/46 99 08/21/19 19:50 08/21/19 20:50 08/21/19 20:34 08/21/19 20:50 08/21/19 20:34 General appearance: Present: no acute distress, well-nourished - EENT Eyes: Present: PERRL, EOM intact ENT: hearing intact, clear oral mucosa, dentition normal - Neck Neck: Present: supple, normal ROM - Respiratory Respiratory effort: normal Respiratory: bilateral: CTA - Cardiovascular Rhythm: irregularly irregular Heart Sounds: Present: S1 & S2 - Extremities Extremities: no ischemia, pulses intact, pulses symmetrical, No edema, Full ROM Extremity abnormal: edema (2+ bilateral ankle edema) Peripheral Pulses: within normal limits - Abdominal General gastrointestinal: Present: soft, non-tender, non-distended - Integumentary Integumentary: Present: clear, warm, dry - Musculoskeletal Musculoskeletal: strength equal bilaterally - Psychiatric Psychiatric: appropriate mood/affect, intact judgment & insight, cooperative - Neurologic Neurologic: CNII-XII intact, moves all extremities HEART Score - HEART Score Troponin: Troponin T 0.030 ng/mL (0.00-0.029) H 08/21/19 20:47 Results - Labs CBC & Chem 7: 08/22/19 02:37 08/22/19 02:37 Labs: Abnormal lab results 08/21/19 08/21/19 08/21/19 Range/Units 20:41 20:41 20:41 WBC 11.1 H (4.5-11.0) K/mm3 MCV 78 L (79-97) fl MCH 25 L (28-32) pg RDW 16.4 H (13.2-15.2) % PT 19.0 H (12.2-14.9) Sec. INR 1.59 H (0.87-1.13) APTT 38.6 H (24.2-36.6) Sec. Sodium 131 L (137-145) mmol/L Potassium 3.2 L (3.6-5.0) mmol/L Chloride 88.7 L (98-107) mmol/L BUN 6 L (7-17) mg/dL Creatinine 0.5 L (0.7-1.2) mg/dL Glucose 109 H (65-100) mg/dL Calcium 8.3 L (8.4-10.2) mg/dL Magnesium (1.7-2.3) mg/dL AST 45 H (5-40) units/L Troponin T (0.00-0.029) ng/mL NT-Pro-B Natriuret Pep 1347 H (0-900) pg/mL Total Protein 5.8 L (6.3-8.2) g/dL Albumin 2.6 L (3.9-5) g/dL LDL Cholesterol Direct (50-130) mg/dL HDL Cholesterol (40-59) mg/dL 08/21/19 08/21/19 Range/Units 20:47 20:47 WBC (4.5-11.0) K/mm3 MCV (79-97) fl MCH (28-32) pg RDW (13.2-15.2) % PT (12.2-14.9) Sec. INR (0.87-1.13) APTT (24.2-36.6) Sec. Sodium (137-145) mmol/L Potassium (3.6-5.0) mmol/L Chloride (98-107) mmol/L BUN (7-17) mg/dL Creatinine (0.7-1.2) mg/dL Glucose (65-100) mg/dL Calcium (8.4-10.2) mg/dL Magnesium 1.50 L (1.7-2.3) mg/dL AST (5-40) units/L Troponin T 0.030 H (0.00-0.029) ng/mL NT-Pro-B Natriuret Pep (0-900) pg/mL Total Protein (6.3-8.2) g/dL Albumin (3.9-5) g/dL LDL Cholesterol Direct 48 L (50-130) mg/dL HDL Cholesterol 64 H (40-59) mg/dL Assessment and Plan - Patient Problems (1) Atrial fibrillation with RVR Current Visit: Yes Status: Acute Plan to address problem: Patient is been admitted and placed on Cardizem drip. We will place a consult to cardiology for further evaluation and recommendation. (2) Dementia Current Visit: Yes Status: Acute Plan to address problem: Patient only oriented to self. We will continue on her routine home medication. (3) Hypokalemia Current Visit: Yes Status: Acute Plan to address problem: Will replete potassium and monitor chemistry. (4) HTN (hypertension) Current Visit: No Status: Acute Plan to address problem: We will resume routine home medications and monitor vital signs closely. (5) Troponin level elevated Current Visit: Yes Status: Acute Plan to address problem: We will check serial cardiac enzymes. We will await cardiology evaluation. (6) DVT prophylaxis Current Visit: No Status: Acute Plan to address problem: Patient currently on anticoagulation. (7) Full code status Current Visit: Yes Status: Acute
[2019-08-22 03:06] LABS: Hematocrit 32.7 % (30.3-42.9); Hemoglobin 10.6 gm/dl (10.1-14.3); Mean Corpuscular HGB Conc 32 % (30-34); Mean Corpuscular Volume 78 fl (79-97); Platelet Count 238 K/mm3 (140-440); Red Blood Count 4.22 M/mm3 (3.65-5.03); Red Cell Distribution Width 16.5 % (13.2-15.2)
[2019-08-22 03:13] LABS: BUN/Creatinine Ratio 13; Blood Urea Nitrogen 8 mg/dL (7-17); Calcium 8.4 mg/dL (8.4-10.2); Hemolysis Index 1
[2019-08-22 03:15] LABS: INR 1.67 (0.87-1.13)
[2019-08-22 03:52] LABS: Basophils % (Manual) 0 % (0.0-1.8); Total Cells Counted 100
[2019-08-22 03:53] LABS: Anisocytosis 1+; Eosinophils % (Manual) 0 % (0.0-4.3); Hypochromasia 1+
[2019-08-22] MEDS ORDERED: POTASSIUM CHLORIDE 10 MEQ 10 MEQ/100 ML BAG IV ONE ×2 (04:09→04:12)
[2019-08-22] MEDS: POTASSIUM CHLORIDE 10 MEQ 10 MEQ/100 ML BAG IV ONE ×2 (04:19→05:36)
[2019-08-22] MEDS ORDERED: INSULIN LISPRO 100 UNIT/ML SUB-Q SCH (07:30)
[2019-08-22] MEDS: INSULIN LISPRO 100 UNIT/ML SUB-Q SCH ×4 (09:01→21:27)
[2019-08-22] MEDS ORDERED: INSULIN LISPRO 100 UNIT/ML SUB-Q ONE ×2 (09:01→19:04)
--- NOTE | 2019-08-22 09:17 | Progress Note ---
Assessment and Plan Assessment and plan: Paroxysmal atrial fibrillation with RVR. Continue Cardizem drip per cardiology recommendations. Continue chronic anticoagulation with Eliquis. Acute hypoxic respiratory failure. Etiology secondary to COPD. Continue O2 and BiPAP as clinically indicated. Acute COPD exacerbation. Continue bronchodilators, inhaled steroids and IV steroids. Type 2 diabetes mellitus. Continue Accu-Cheks and sliding scale insulin. ADA diet. Dementia. Continue home medications. Hypokalemia. Replete potassium. Hypertension. Continue antihypertensive medications. The high probability of a clinically significant, sudden or life threatening deterioration of the [cardiac and respiratory] system(s) required my full and direct attention, intervention and personal management. The aggregate critical care time was [32] minutes. This time is in addition to time spent performing reported procedures but includes the following: [x] Data Review and interpretation [x] Patient assessment and monitoring of vital signs [x] Documentation [x] Medication orders and management History Interval history: No new issues overnight. Patient remains on Cardizem drip. Hospitalist Physical - Constitutional Vitals: Temp Pulse Resp BP Pulse Ox 98.0 F 61 21 106/56 99 08/21/19 19:50 08/22/19 07:15 08/22/19 07:15 08/22/19 07:15 08/22/19 07:15 General appearance: Present: no acute distress, well-nourished - EENT Eyes: Present: PERRL, EOM intact ENT: hearing intact, clear oral mucosa, dentition normal - Neck Neck: Present: supple, normal ROM - Respiratory Respiratory effort: normal Respiratory: bilateral: CTA - Cardiovascular Rhythm: regular Heart Sounds: Present: S1 & S2. Absent: gallop, rub - Extremities Extremities: no ischemia, No edema, Full ROM - Abdominal General gastrointestinal: soft, non-tender, non-distended, normal bowel sounds - Integumentary Integumentary: Present: clear, warm, dry - Neurologic Neurologic: CNII-XII intact, moves all extremities HEART Score - HEART Score Troponin: Troponin T 0.020 ng/mL (0.00-0.029) 08/22/19 02:37 Results - Labs CBC & Chem 7: 08/22/19 02:37 08/22/19 02:37 Labs: Laboratory Last Values WBC 7.5 K/mm3 (4.5-11.0) 08/22/19 02:37 RBC 4.22 M/mm3 (3.65-5.03) 08/22/19 02:37 Hgb 10.6 gm/dl (10.1-14.3) 08/22/19 02:37 Hct 32.7 % (30.3-42.9) 08/22/19 02:37 MCV 78 fl (79-97) L 08/22/19 02:37 MCH 25 pg (28-32) L 08/22/19 02:37 MCHC 32 % (30-34) 08/22/19 02:37 RDW 16.5 % (13.2-15.2) H 08/22/19 02:37 Plt Count 238 K/mm3 (140-440) 08/22/19 02:37 Add Manual Diff Complete 08/22/19 02:37 Total Counted 100 08/22/19 02:37 Seg Neutrophils % Restaurant Delivery Driver 08/22/19 02:37 Seg Neuts % (Manual) 90.0 % (40.0-70.0) H 08/22/19 02:37 Band Neutrophils % 0 % 08/22/19 02:37 Lymphocytes % (Manual) 6.0 % (13.4-35.0) L 08/22/19 02:37 Reactive Lymphs % (Man) 0 % 08/22/19 02:37 Monocytes % (Manual) 4.0 % (0.0-7.3) 08/22/19 02:37 Eosinophils % (Manual) 0 % (0.0-4.3) 08/22/19 02:37 Basophils % (Manual) 0 % (0.0-1.8) 08/22/19 02:37 Metamyelocytes % 0 % 08/22/19 02:37 Myelocytes % 0 % 08/22/19 02:37 Promyelocytes % 0 % 08/22/19 02:37 Blast Cells % 0 % 08/22/19 02:37 Nucleated RBC % Not Reportable 08/22/19 02:37 Seg Neutrophils # Man 6.8 K/mm3 (1.8-7.7) 08/22/19 02:37 Band Neutrophils # 0.0 K/mm3 08/22/19 02:37 Lymphocytes # (Manual) 0.5 K/mm3 (1.2-5.4) L 08/22/19 02:37 Abs React Lymphs (Man) 0.0 K/mm3 08/22/19 02:37 Monocytes # (Manual) 0.3 K/mm3 (0.0-0.8) 08/22/19 02:37 Eosinophils # (Manual) 0.0 K/mm3 (0.0-0.4) 08/22/19 02:37 Basophils # (Manual) 0.0 K/mm3 (0.0-0.1) 08/22/19 02:37 Metamyelocytes # 0.0 K/mm3 08/22/19 02:37 Myelocytes # 0.0 K/mm3 08/22/19 02:37 Promyelocytes # 0.0 K/mm3 08/22/19 02:37 Blast Cells # 0.0 K/mm3 08/22/19 02:37 WBC Morphology Not Reportable 08/22/19 02:37 Hypersegmented Neuts Not Reportable 08/22/19 02:37 Hyposegmented Neuts Not Reportable 08/22/19 02:37 Hypogranular Neuts Not Reportable 08/22/19 02:37 Smudge Cells Not Reportable 08/22/19 02:37 Toxic Granulation Not Reportable 08/22/19 02:37 Toxic Vacuolation Not Reportable 08/22/19 02:37 Dohle Bodies Not Reportable 08/22/19 02:37 Pelger-Huet Anomaly Not Reportable 08/22/19 02:37 Serena Rods Not Reportable 08/22/19 02:37 Platelet Estimate Not Reportable 08/22/19 02:37 Clumped Platelets Not Reportable 08/22/19 02:37 Plt Clumps, EDTA Not Reportable 08/22/19 02:37 Large Platelets Not Reportable 08/22/19 02:37 Giant Platelets Not Reportable 08/22/19 02:37 Platelet Satelliting Not Reportable 08/22/19 02:37 Plt Morphology Comment Not Reportable 08/22/19 02:37 RBC Morphology Not Reportable 08/22/19 02:37 Dimorphic RBCs Not Reportable 08/22/19 02:37 Polychromasia Not Reportable 08/22/19 02:37 Hypochromasia 1+ 08/22/19 02:37 Poikilocytosis Not Reportable 08/22/19 02:37 Anisocytosis 1+ 08/22/19 02:37 Microcytosis Not Reportable 08/22/19 02:37 Macrocytosis Not Reportable 08/22/19 02:37 Spherocytes Not Reportable 08/22/19 02:37 Pappenheimer Bodies Not Reportable 08/22/19 02:37 Sickle Cells Not Reportable 08/22/19 02:37 Target Cells Not Reportable 08/22/19 02:37 Tear Drop Cells Not Reportable 08/22/19 02:37 Ovalocytes Not Reportable 08/22/19 02:37 Helmet Cells Not Reportable 08/22/19 02:37 Cerrato-Eden Bodies Not Reportable 08/22/19 02:37 [place] Rings Not Reportable 08/22/19 02:37 [place] Cells Not Reportable 08/22/19 02:37 Bite Cells Not Reportable 08/22/19 02:37 Crenated Cell Not Reportable 08/22/19 02:37 Elliptocytes Not Reportable 08/22/19 02:37 Acanthocytes (Spur) Not Reportable 08/22/19 02:37 Rouleaux Not Reportable 08/22/19 02:37 Hemoglobin C Crystals Not Reportable 08/22/19 02:37 Schistocytes Not Reportable 08/22/19 02:37 Malaria parasites Not Reportable 08/22/19 02:37 Marco Bodies Not Reportable 08/22/19 02:37 Hem Pathologist Commnt No 08/22/19 02:37 PT 19.7 Sec. (12.2-14.9) H 08/22/19 02:37 INR 1.67 (0.87-1.13) H 08/22/19 02:37 APTT 38.6 Sec. (24.2-36.6) H 08/21/19 20:41 Sodium 134 mmol/L (137-145) L 08/22/19 02:37 Potassium 2.9 mmol/L (3.6-5.0) L* 08/22/19 02:37 Chloride 90.2 mmol/L (98-107) L 08/22/19 02:37 Carbon Dioxide 31 mmol/L (22-30) H 08/22/19 02:37 Anion Gap 16 mmol/L 08/22/19 02:37 BUN 8 mg/dL (7-17) 08/22/19 02:37 Creatinine 0.6 mg/dL (0.7-1.2) L 08/22/19 02:37 Estimated GFR > 60 ml/min 08/22/19 02:37 BUN/Creatinine Ratio 13 % 08/22/19 02:37 Glucose 163 mg/dL (65-100) H 08/22/19 02:37 Calcium 8.4 mg/dL (8.4-10.2) 08/22/19 02:37 Magnesium 1.50 mg/dL (1.7-2.3) L 08/21/19 20:47 Total Bilirubin 1.20 mg/dL (0.1-1.2) 08/21/19 20:41 AST 45 units/L (5-40) H 08/21/19 20:41 ALT 17 units/L (7-56) 08/21/19 20:41 Alkaline Phosphatase 77 units/L (35-129) 08/21/19 20:41 Troponin T 0.020 ng/mL (0.00-0.029) 08/22/19 02:37 NT-Pro-B Natriuret Pep 1347 pg/mL (0-900) H 08/21/19 20:41 Total Protein 5.8 g/dL (6.3-8.2) L 08/21/19 20:41 Albumin 2.6 g/dL (3.9-5) L 08/21/19 20:41 Albumin/Globulin Ratio 0.8 % 08/21/19 20:41 Triglycerides 81 mg/dL (2-149) 08/21/19 20:47 Cholesterol 112 mg/dL (50-199) 08/21/19 20:47 LDL Cholesterol Direct 48 mg/dL (50-130) L 08/21/19 20:47 HDL Cholesterol 64 mg/dL (40-59) H 08/21/19 20:47 Cholesterol/HDL Ratio 1.75 % 08/21/19 20:47 Barreto/IV: IV Catheter Type [Left Forearm INT / Saline Lock ] Active Medications - Current Medications Current Medications: Generic Name Dose Route Start Last Admin Trade Name Freq PRN Reason Stop Dose Admin Apixaban 5 mg 08/22/19 10:00 Eliquis PO Q12HR BENNY Protocol Dextrose 0 ml 08/21/19 22:17 D50w (25gm) Syringe IV Q30MIN PRN Hypoglycemia Protocol Diltiazem HCl 100 mg in 100 mls @ 5 mls/hr 08/21/19 21:00 08/21/19 21:23 Cardizem/D5w 100mg/100ml IV 5 mg/hr TITR BENNY 5 mls/hr Administration Protocol 5 MG/HR Insulin Human Lispro 0 unit 08/22/19 07:30 08/22/19 09:01 Humalog SUB-Q 2 unit ACHS [facility]ENNY Administration Protocol Magnesium Hydroxide 30 ml 08/21/19 22:17 Milk Of Magnesia PO Q4H PRN Constipation Morphine Sulfate 2 mg 08/21/19 22:17 Morphine IV Q4H PRN Pain, Moderate (4-6) Ondansetron HCl 4 mg 08/21/19 22:17 Zofran IV Q8H PRN Nausea And Vomiting Sodium Chloride 10 ml 08/22/19 10:00 Sodium Chloride Flush Syringe 10 Ml IV BID BENNY Sodium Chloride 10 ml 08/21/19 22:17 Sodium Chloride Flush Syringe 10 Ml IV PRN PRN LINE FLUSH
[2019-08-22] MEDS ORDERED: BENZONATATE 100 MG CAP PO PRN (09:20)
[2019-08-22] MEDS ORDERED: ALBUTEROL 2.5 MG/3 ML NEBU IH PRN (09:22)
[2019-08-22] MEDS ORDERED: SALMETEROL PO SCH (10:00)
[2019-08-22] MEDS ORDERED: FLUTICASONE PO SCH (10:00)
[2019-08-22] MEDS ORDERED: metFORMIN 500 MG TAB ONE (10:37)
[2019-08-22] MEDS ORDERED: PANTOPRAZOLE 40 MG TAB PO ONE (10:38)
[2019-08-22] MEDS ORDERED: APIXABAN 5 MG TAB ONE (10:38)
[2019-08-22] MEDS: metFORMIN 500 MG TAB PO SCH ×2 (10:39→21:27)
[2019-08-22] MEDS: dilTIAZem CD 240 MG CAP PO SCH (10:40)
[2019-08-22] MEDS: PARoxetine 20 MG TAB PO SCH (10:40)
[2019-08-22] MEDS: PANTOPRAZOLE 40 MG TAB PO SCH (10:40)
[2019-08-22] MEDS: APIXABAN 5 MG TAB PO SCH ×2 (10:40→21:26)
[2019-08-22] MEDS ORDERED: HALOPERIDOL LACTATE 5 MG/1 ML INJ IV ONE (11:50)
[2019-08-22] MEDS ORDERED: HALOPERIDOL LACTATE 5 MG/1 ML INJ ONE (11:55)
[2019-08-22] MEDS ORDERED: TRIMETHOPRIM OS SCH (14:00)
[2019-08-22] MEDS ORDERED: POLYMYXIN B SULF OS SCH (14:00)
[2019-08-22] MEDS ORDERED: methylPREDNISolone Sod Succinate 125 MG/2 ML INJ ONE (14:27)
[2019-08-22] MEDS: methylPREDNISolone Sod Succinate 40 MG/1 ML INJ IV SCH ×2 (14:33→21:27)
--- NOTE | 2019-08-22 15:25 | Consultation ---
History of Present Illness Consult date: 08/22/19 Requesting physician: SAM CEDILLO Reason for consult: other (COPD; A-fib RVR) History of present illness: PULMONARY/CCM CONSULT NOTE (Full dictation # [id number]) Please see dictated notes for full details Past History Past Medical History: atrial fib, arthritis, COPD, diabetes, hypertension Past Surgical History: cholecystectomy, Other (Right breast surgery) Social history: no significant social history Family history: no significant family history Medications and Allergies Allergies Allergy/AdvReac Type Severity Reaction Status Date / Time promethazine HCl AdvReac LEG PAIN Verified 08/22/17 23:38 [From Phenergan] Home Medications Medication Instructions Recorded Confirmed Last Taken Type Esomeprazole Magnesium [NexIUM] 40 mg PO QDAY 02/08/13 08/22/19 01/09/14 History Montelukast [Singulair] 10 mg PO QPM 02/08/13 08/22/19 01/08/14 History PARoxetine [Paxil] 20 mg PO DAILY 02/08/13 08/22/19 01/08/14 History metFORMIN [Glucophage] 500 mg PO BID 02/08/13 08/22/19 01/08/14 History Benzonatate [Tessalon Perles] 100 mg PO Q8HR PRN #30 capsule 12/20/16 08/22/19 Unknown Rx Polymyxin B Sulf/Trimethoprim 2 drop OS TID 7 Days #10 ml 09/02/17 08/22/19 Unknown Rx [Polytrim Eye Drops] Fluticasone/Salmeterol(Nf) [Advair 1 puff PO BID #1 hfa.aer.ad 01/12/18 08/22/19 Unknown Rx HFA 115-21 mcg] Ipratropium/Albuterol Sulfate 1 ampul IH Q8HRT #120 ampul.neb 01/12/18 08/22/19 Unknown Rx [DUONEB *Not for PRN Use*] Albuterol Sulfate [Proventil Hfa] 2 puff IH Q4HR PRN #1 hfa.aer.ad 04/08/19 08/22/19 Unknown Rx dilTIAZem CD [Cardizem CD] 240 mg PO QDAY #30 capsule 04/24/19 08/22/19 Unknown Rx Apixaban [Eliquis] 5 mg PO Q12HR #60 tablet 08/01/19 08/22/19 Unknown Rx Prednisone [predniSONE 10 mg 10 mg PO .TAPER #1 tab.ds.pk 08/01/19 08/22/19 Unknown Rx (6-Day Pack, 21 Tabs)] LORazepam [Ativan] 1 mg PO Q4H PRN 08/22/19 08/22/19 Unknown History Active Meds: Active Medications Albuterol (Proventil) 2.5 mg IH Q4HRT PRN PRN Reason: Shortness Of Breath Albuterol/Ipratropium (Duoneb *Not For Prn Use*) 1 ampul IH Q8HRT [facility] Apixaban (Eliquis) 5 mg PO Q12HR [facility]; Protocol Last Admin: 08/22/19 10:40 Dose: 5 mg Documented by: Arformoterol Tartrate (Brovana Nebu) 15 mcg IH Q12HRT [facility] Benzonatate (Tessalon Perles) 100 mg PO Q8HR PRN PRN Reason: Cough Budesonide (Pulmicort) 0.5 mg IH Q12HRT [facility] Dextrose (D50w (25gm) Syringe) 0 ml IV Q30MIN PRN; Protocol PRN Reason: Hypoglycemia Diltiazem HCl (Cardizem Cd) 240 mg PO QDAY [facility] Last Admin: 08/22/19 10:40 Dose: 240 mg Documented by: Insulin Human Lispro (Humalog) 0 unit SUB-Q ACHS [facility]; Protocol Last Admin: 08/22/19 14:16 Dose: Not Given Documented by: Magnesium Hydroxide (Milk Of Magnesia) 30 ml PO Q4H PRN PRN Reason: Constipation Metformin HCl (Glucophage) 500 mg PO BID [facility] Last Admin: 08/22/19 10:39 Dose: 500 mg Documented by: Methylprednisolone Sodium Succinate (Solu-Medrol) 40 mg IV Q8HR [facility] Last Admin: 08/22/19 14:33 Dose: 40 mg Documented by: Montelukast Sodium (Singulair) 10 mg PO QPM [facility] Morphine Sulfate (Morphine) 2 mg IV Q4H PRN PRN Reason: Pain, Moderate (4-6) Ondansetron HCl (Zofran) 4 mg IV Q8H PRN PRN Reason: Nausea And Vomiting Pantoprazole Sodium (Protonix) 40 mg PO QDAY [facility] Last Admin: 08/22/19 10:40 Dose: 40 mg Documented by: Paroxetine HCl (Paxil) 20 mg PO DAILY [facility] Last Admin: 08/22/19 10:40 Dose: 20 mg Documented by: Sodium Chloride (Sodium Chloride Flush Syringe 10 Ml) 10 ml IV BID [facility] Last Admin: 08/22/19 12:06 Dose: 10 ml Documented by: Sodium Chloride (Sodium Chloride Flush Syringe 10 Ml) 10 ml IV PRN PRN PRN Reason: LINE FLUSH Physical Examination Vital signs: Vital Signs Pulse Resp BP Pulse Ox 158 H 19 145/107 99 08/21/19 19:43 08/21/19 19:43 08/21/19 19:43 08/21/19 19:43 Results - Laboratory Findings CBC and BMP: 08/24/19 09:00 08/24/19 09:00 PT/INR, D-dimer PT 19.7 Sec. (12.2-14.9) H 08/22/19 02:37 INR 1.67 (0.87-1.13) H 08/22/19 02:37 Abnormal lab findings: Abnormal Labs 08/21/19 08/21/19 08/21/19 20:41 20:41 20:41 WBC 11.1 H MCV 78 L MCH 25 L RDW 16.4 H Seg Neuts % (Manual) 83.0 H Lymphocytes % (Manual) 10.0 L Seg Neutrophils # Man 9.2 H Lymphocytes # (Manual) 1.1 L PT 19.0 H INR 1.59 H APTT 38.6 H Sodium 131 L Potassium 3.2 L Chloride 88.7 L Carbon Dioxide BUN 6 L Creatinine 0.5 L Glucose 109 H Calcium 8.3 L Magnesium AST 45 H Troponin T NT-Pro-B Natriuret Pep 1347 H Total Protein 5.8 L Albumin 2.6 L LDL Cholesterol Direct HDL Cholesterol 08/21/19 08/21/19 08/22/19 20:47 20:47 02:37 WBC MCV 78 L MCH 25 L RDW 16.5 H Seg Neuts % (Manual) 90.0 H Lymphocytes % (Manual) 6.0 L Seg Neutrophils # Man Lymphocytes # (Manual) 0.5 L PT INR APTT Sodium Potassium Chloride Carbon Dioxide BUN Creatinine Glucose Calcium Magnesium 1.50 L AST Troponin T 0.030 H NT-Pro-B Natriuret Pep Total Protein Albumin LDL Cholesterol Direct 48 L HDL Cholesterol 64 H 08/22/19 08/22/19 02:37 02:37 WBC MCV MCH RDW Seg Neuts % (Manual) Lymphocytes % (Manual) Seg Neutrophils # Man Lymphocytes # (Manual) PT 19.7 H INR 1.67 H APTT Sodium 134 L Potassium 2.9 L* Chloride 90.2 L Carbon Dioxide 31 H BUN Creatinine 0.6 L Glucose 163 H Calcium Magnesium AST Troponin T NT-Pro-B Natriuret Pep Total Protein Albumin LDL Cholesterol Direct HDL Cholesterol
[2019-08-22] MEDS ORDERED: MORPHINE 2 MG/1 ML INJ ONE (15:54)
[2019-08-22] MEDS: MORPHINE 2 MG/1 ML INJ IV PRN (15:55)
[2019-08-22] MEDS ORDERED: IPRATROPIUM/ALBUTEROL SULFATE 3 ML AMPUL.NEB IH SCH (16:00)
--- NOTE | 2019-08-22 17:06 | Consultation ---
History of Present Illness Consult date: 08/22/19 Consult reason: atrial fibrillation History of present illness: The patient is a 79-year-old woman with multiple comorbidities including COPD, dementia, diabetes and chronic hypertension. She also has a history of paroxysmal atrial fibrillation. 5 months ago, she was admitted to this hospital with rapid atrial fibrillation, ultimately reverted to sinus rhythm, and is on outpatient therapy with diltiazem CD 240 mg daily, and Eliquis 5 mg twice daily. Patient is admitted to the hospital at this time with primary complaints of bilateral lower extremity swelling, but on presentation was found with rapid atrial fibrillation on her ECG. Due to her dementia, we are unable to obtain an optimal history of review of systems. She was treated with intravenous Cardizem in the emergency room and has again returned to a stable sinus rhythm. She is currently normal sinus at 80, and systolic blood pressure is 136. The patient otherwise looks and feels well at this time, appears comfortable in no acute distress. Past History Past Medical History: atrial fib, arthritis, COPD, diabetes, hypertension Past Surgical History: cholecystectomy, Other (Right breast surgery) Social history: no significant social history Family history: no significant family history Medications and Allergies Allergies Allergy/AdvReac Type Severity Reaction Status Date / Time promethazine HCl AdvReac LEG PAIN Verified 08/22/17 23:38 [From Phenergan] Home Medications Medication Instructions Recorded Confirmed Last Taken Type Esomeprazole Magnesium [NexIUM] 40 mg PO QDAY 02/08/13 08/22/19 01/09/14 History Montelukast [Singulair] 10 mg PO QPM 02/08/13 08/22/19 01/08/14 History PARoxetine [Paxil] 20 mg PO DAILY 02/08/13 08/22/19 01/08/14 History metFORMIN [Glucophage] 500 mg PO BID 02/08/13 08/22/19 01/08/14 History Benzonatate [Tessalon Perles] 100 mg PO Q8HR PRN #30 capsule 12/20/16 08/22/19 Unknown Rx Polymyxin B Sulf/Trimethoprim 2 drop OS TID 7 Days #10 ml 09/02/17 08/22/19 Unknown Rx [Polytrim Eye Drops] Fluticasone/Salmeterol(Nf) [Advair 1 puff PO BID #1 hfa.aer.ad 01/12/18 08/22/19 Unknown Rx HFA 115-21 mcg] Ipratropium/Albuterol Sulfate 1 ampul IH Q8HRT #120 ampul.neb 01/12/18 08/22/19 Unknown Rx [DUONEB *Not for PRN Use*] Albuterol Sulfate [Proventil Hfa] 2 puff IH Q4HR PRN #1 hfa.aer.ad 04/08/19 08/22/19 Unknown Rx dilTIAZem CD [Cardizem CD] 240 mg PO QDAY #30 capsule 04/24/19 08/22/19 Unknown Rx Apixaban [Eliquis] 5 mg PO Q12HR #60 tablet 08/01/19 08/22/19 Unknown Rx Prednisone [predniSONE 10 mg 10 mg PO .TAPER #1 tab.ds.pk 08/01/19 08/22/19 Unknown Rx (6-Day Pack, 21 Tabs)] LORazepam [Ativan] 1 mg PO Q4H PRN 08/22/19 08/22/19 Unknown History Active Meds: Active Medications Albuterol (Proventil) 2.5 mg IH Q4HRT PRN PRN Reason: Shortness Of Breath Albuterol/Ipratropium (Duoneb *Not For Prn Use*) 1 ampul IH Q8HRT [facility] Apixaban (Eliquis) 5 mg PO Q12HR [facility]; Protocol Last Admin: 08/22/19 10:40 Dose: 5 mg Documented by: Arformoterol Tartrate (Brovana Nebu) 15 mcg IH Q12HRT [facility] Benzonatate (Tessalon Perles) 100 mg PO Q8HR PRN PRN Reason: Cough Budesonide (Pulmicort) 0.5 mg IH Q12HRT [facility] Dextrose (D50w (25gm) Syringe) 0 ml IV Q30MIN PRN; Protocol PRN Reason: Hypoglycemia Diltiazem HCl (Cardizem Cd) 240 mg PO QDAY [facility] Last Admin: 08/22/19 10:40 Dose: 240 mg Documented by: Insulin Human Lispro (Humalog) 0 unit SUB-Q ACHS [facility]; Protocol Last Admin: 08/22/19 14:16 Dose: Not Given Documented by: Magnesium Hydroxide (Milk Of Magnesia) 30 ml PO Q4H PRN PRN Reason: Constipation Metformin HCl (Glucophage) 500 mg PO BID [facility] Last Admin: 08/22/19 10:39 Dose: 500 mg Documented by: Methylprednisolone Sodium Succinate (Solu-Medrol) 40 mg IV Q8HR [facility] Last Admin: 08/22/19 14:33 Dose: 40 mg Documented by: Montelukast Sodium (Singulair) 10 mg PO QPM [facility] Morphine Sulfate (Morphine) 2 mg IV Q4H PRN PRN Reason: Pain, Moderate (4-6) Last Admin: 08/22/19 15:55 Dose: 2 mg Documented by: Ondansetron HCl (Zofran) 4 mg IV Q8H PRN PRN Reason: Nausea And Vomiting Pantoprazole Sodium (Protonix) 40 mg PO QDAY [facility] Last Admin: 08/22/19 10:40 Dose: 40 mg Documented by: Paroxetine HCl (Paxil) 20 mg PO DAILY [facility] Last Admin: 08/22/19 10:40 Dose: 20 mg Documented by: Sodium Chloride (Sodium Chloride Flush Syringe 10 Ml) 10 ml IV BID [facility] Last Admin: 08/22/19 12:06 Dose: 10 ml Documented by: Sodium Chloride (Sodium Chloride Flush Syringe 10 Ml) 10 ml IV PRN PRN PRN Reason: LINE FLUSH Review of Systems ROS unobtainable: due to mental status Physical Examination Vital Signs Pulse Resp BP Pulse Ox 158 H 19 145/107 99 08/21/19 19:43 08/21/19 19:43 08/21/19 19:43 08/21/19 19:43 General appearance: no acute distress HEENT: Positive: PERRL Neck: Positive: neck supple Cardiac: Positive: Reg Rate and Rhythm Lungs: Positive: Decreased Breath Sounds Neuro: Positive: Grossly Intact Abdomen: Positive: Soft Female genitourinary: deferred Skin: Positive: Clear Extremities: Absent: edema Results 08/22/19 02:37 08/22/19 02:37 Cardiac Enzymes 08/21/19 Range/Units 20:41 AST 45 H (5-40) units/L Coagulation 08/21/19 08/22/19 Range/Units 20:41 02:37 PT 19.0 H 19.7 H (12.2-14.9) Sec. INR 1.59 H 1.67 H (0.87-1.13) APTT 38.6 H (24.2-36.6) Sec. Lipids 08/21/19 Range/Units 20:47 Triglycerides 81 (2-149) mg/dL Cholesterol 112 (50-199) mg/dL HDL Cholesterol 64 H (40-59) mg/dL Cholesterol/HDL Ratio 1.75 % CBC 08/21/19 08/22/19 Range/Units 20:41 02:37 WBC 11.1 H 7.5 (4.5-11.0) K/mm3 RBC 4.38 4.22 (3.65-5.03) M/mm3 Hgb 11.0 10.6 (10.1-14.3) gm/dl Hct 34.1 32.7 (30.3-42.9) % Plt Count 271 238 (140-440) K/mm3 Comprehensive Metabolic Panel 08/21/19 08/22/19 Range/Units 20:41 02:37 Sodium 131 L 134 L (137-145) mmol/L Potassium 3.2 L 2.9 L* (3.6-5.0) mmol/L Chloride 88.7 L 90.2 L (98-107) mmol/L Carbon Dioxide 30 31 H (22-30) mmol/L BUN 6 L 8 (7-17) mg/dL Creatinine 0.5 L 0.6 L (0.7-1.2) mg/dL Glucose 109 H 163 H (65-100) mg/dL Calcium 8.3 L 8.4 (8.4-10.2) mg/dL AST 45 H (5-40) units/L ALT 17 (7-56) units/L Alkaline Phosphatase 77 (35-129) units/L Total Protein 5.8 L (6.3-8.2) g/dL Albumin 2.6 L (3.9-5) g/dL EKG interpretations - Telemetry EKG Rhythm: Atrial Fibrillation Assessment and Plan - Patient Problems (1) Rapid atrial fibrillation Current Visit: Yes Status: Acute Plan to address problem: Patient with a history of paroxysmal atrial fibrillation, presents with rapid atrial fibrillation. The ECG is otherwise negative for ischemia. The atrial fibrillation has reverted back to a stable sinus rhythm following intravenous diltiazem. The patient is on long-term oral anticoagulation with Eliquis. We will continue current medical therapy. We will consider additional atrial fibrillation suppressive therapies as indicated.
[2019-08-22] MEDS ORDERED: IPRATROPIUM/ALBUTEROL SULFATE 3 ML AMPUL.NEB IH ONE (17:21)
[2019-08-22] MEDS: BUDESONIDE 0.5 MG/2 ML NEBU IH SCH (20:53)
[2019-08-22] MEDS: ARFORMOTEROL 15 MCG/2 ML NEBU IH SCH (20:53)
[2019-08-22] MEDS: IPRATROPIUM/ALBUTEROL SULFATE 3 ML AMPUL.NEB IH SCH (21:06)
[2019-08-22] MEDS: MONTELUKAST 10 MG TAB PO SCH (21:35)
[2019-08-23] MEDS: methylPREDNISolone Sod Succinate 40 MG/1 ML INJ IV SCH ×3 (06:16→22:12)
[2019-08-23] MEDS: IPRATROPIUM/ALBUTEROL SULFATE 3 ML AMPUL.NEB IH SCH ×3 (08:12→21:13)
[2019-08-23] MEDS: ARFORMOTEROL 15 MCG/2 ML NEBU IH SCH ×2 (08:12→21:13)
[2019-08-23] MEDS: BUDESONIDE 0.5 MG/2 ML NEBU IH SCH ×2 (08:12→21:13)
[2019-08-23] MEDS: INSULIN LISPRO 100 UNIT/ML SUB-Q SCH ×4 (09:00→22:20)
--- NOTE | 2019-08-23 09:00 | Progress Note ---
Assessment and Plan Assessment and plan: Paroxysmal atrial fibrillation with RVR. Continue Cardizem drip per cardiology recommendations. Continue chronic anticoagulation with Eliquis. Acute hypoxic respiratory failure. Etiology secondary to COPD. Continue O2 and BiPAP as clinically indicated. Acute COPD exacerbation. Continue bronchodilators, inhaled steroids and IV steroids. Type 2 diabetes mellitus. Continue Accu-Cheks and sliding scale insulin. ADA diet. Dementia. Continue home medications. Hypokalemia. Replete potassium. Hypertension. Continue antihypertensive medications. 08/23/2019. Patient previously with Cardizem drip for A. fib with RVR which has been discontinued. Patient started back on home regimen of diltiazem CD 240 mg daily and Eliquis 5 mg twice daily. Patient has reverted back to a stable sinus rhythm. EKG is negative for ischemia. Cardiology following. Continue bronchodilators/nebulizers and IV steroids for COPD exacerbation. Pulmonology following. History Interval history: No new issues overnight. Cardizem drip has been discontinued. Hospitalist Physical - Constitutional Vitals: Temp Pulse Resp BP Pulse Ox 97.9 F 90 16 131/57 98 08/23/19 04:13 08/23/19 08:13 08/23/19 08:13 08/23/19 04:13 08/23/19 08:11 General appearance: Present: no acute distress - EENT Eyes: Present: PERRL, EOM intact ENT: hearing intact, clear oral mucosa, dentition normal - Neck Neck: Present: supple, normal ROM - Respiratory Respiratory effort: normal Respiratory: bilateral: CTA - Cardiovascular Rhythm: regular Heart Sounds: Present: S1 & S2. Absent: gallop, rub - Extremities Extremities: no ischemia, No edema, Full ROM - Abdominal General gastrointestinal: soft, non-tender, non-distended, normal bowel sounds - Integumentary Integumentary: Present: clear, warm, dry - Neurologic Neurologic: CNII-XII intact, moves all extremities HEART Score - HEART Score Troponin: Troponin T 0.020 ng/mL (0.00-0.029) 08/22/19 02:37 Results - Labs CBC & Chem 7: 08/22/19 02:37 08/22/19 02:37 Labs: Laboratory Last Values WBC 7.5 K/mm3 (4.5-11.0) 08/22/19 02:37 RBC 4.22 M/mm3 (3.65-5.03) 08/22/19 02:37 Hgb 10.6 gm/dl (10.1-14.3) 08/22/19 02:37 Hct 32.7 % (30.3-42.9) 08/22/19 02:37 MCV 78 fl (79-97) L 08/22/19 02:37 MCH 25 pg (28-32) L 08/22/19 02:37 MCHC 32 % (30-34) 08/22/19 02:37 RDW 16.5 % (13.2-15.2) H 08/22/19 02:37 Plt Count 238 K/mm3 (140-440) 08/22/19 02:37 Add Manual Diff Complete 08/22/19 02:37 Total Counted 100 08/22/19 02:37 Seg Neutrophils % Background Investigator 08/22/19 02:37 Seg Neuts % (Manual) 90.0 % (40.0-70.0) H 08/22/19 02:37 Band Neutrophils % 0 % 08/22/19 02:37 Lymphocytes % (Manual) 6.0 % (13.4-35.0) L 08/22/19 02:37 Reactive Lymphs % (Man) 0 % 08/22/19 02:37 Monocytes % (Manual) 4.0 % (0.0-7.3) 08/22/19 02:37 Eosinophils % (Manual) 0 % (0.0-4.3) 08/22/19 02:37 Basophils % (Manual) 0 % (0.0-1.8) 08/22/19 02:37 Metamyelocytes % 0 % 08/22/19 02:37 Myelocytes % 0 % 08/22/19 02:37 Promyelocytes % 0 % 08/22/19 02:37 Blast Cells % 0 % 08/22/19 02:37 Nucleated RBC % Not Reportable 08/22/19 02:37 Seg Neutrophils # Man 6.8 K/mm3 (1.8-7.7) 08/22/19 02:37 Band Neutrophils # 0.0 K/mm3 08/22/19 02:37 Lymphocytes # (Manual) 0.5 K/mm3 (1.2-5.4) L 08/22/19 02:37 Abs React Lymphs (Man) 0.0 K/mm3 08/22/19 02:37 Monocytes # (Manual) 0.3 K/mm3 (0.0-0.8) 08/22/19 02:37 Eosinophils # (Manual) 0.0 K/mm3 (0.0-0.4) 08/22/19 02:37 Basophils # (Manual) 0.0 K/mm3 (0.0-0.1) 08/22/19 02:37 Metamyelocytes # 0.0 K/mm3 08/22/19 02:37 Myelocytes # 0.0 K/mm3 08/22/19 02:37 Promyelocytes # 0.0 K/mm3 08/22/19 02:37 Blast Cells # 0.0 K/mm3 08/22/19 02:37 WBC Morphology Not Reportable 08/22/19 02:37 Hypersegmented Neuts Not Reportable 08/22/19 02:37 Hyposegmented Neuts Not Reportable 08/22/19 02:37 Hypogranular Neuts Not Reportable 08/22/19 02:37 Smudge Cells Not Reportable 08/22/19 02:37 Toxic Granulation Not Reportable 08/22/19 02:37 Toxic Vacuolation Not Reportable 08/22/19 02:37 Dohle Bodies Not Reportable 08/22/19 02:37 Pelger-Huet Anomaly Not Reportable 08/22/19 02:37 Serena Rods Not Reportable 08/22/19 02:37 Platelet Estimate Not Reportable 08/22/19 02:37 Clumped Platelets Not Reportable 08/22/19 02:37 Plt Clumps, EDTA Not Reportable 08/22/19 02:37 Large Platelets Not Reportable 08/22/19 02:37 Giant Platelets Not Reportable 08/22/19 02:37 Platelet Satelliting Not Reportable 08/22/19 02:37 Plt Morphology Comment Not Reportable 08/22/19 02:37 RBC Morphology Not Reportable 08/22/19 02:37 Dimorphic RBCs Not Reportable 08/22/19 02:37 Polychromasia Not Reportable 08/22/19 02:37 Hypochromasia 1+ 08/22/19 02:37 Poikilocytosis Not Reportable 08/22/19 02:37 Anisocytosis 1+ 08/22/19 02:37 Microcytosis Not Reportable 08/22/19 02:37 Macrocytosis Not Reportable 08/22/19 02:37 Spherocytes Not Reportable 08/22/19 02:37 Pappenheimer Bodies Not Reportable 08/22/19 02:37 Sickle Cells Not Reportable 08/22/19 02:37 Target Cells Not Reportable 08/22/19 02:37 Tear Drop Cells Not Reportable 08/22/19 02:37 Ovalocytes Not Reportable 08/22/19 02:37 Helmet Cells Not Reportable 08/22/19 02:37 Cerrato-Icard Bodies Not Reportable 08/22/19 02:37 Hume Rings Not Reportable 08/22/19 02:37 [place] Cells Not Reportable 08/22/19 02:37 Bite Cells Not Reportable 08/22/19 02:37 Crenated Cell Not Reportable 08/22/19 02:37 Elliptocytes Not Reportable 08/22/19 02:37 Acanthocytes (Spur) Not Reportable 08/22/19 02:37 Rouleaux Not Reportable 08/22/19 02:37 Hemoglobin C Crystals Not Reportable 08/22/19 02:37 Schistocytes Not Reportable 08/22/19 02:37 Malaria parasites Not Reportable 08/22/19 02:37 Marco Bodies Not Reportable 08/22/19 02:37 Hem Pathologist Commnt No 08/22/19 02:37 PT 19.7 Sec. (12.2-14.9) H 08/22/19 02:37 INR 1.67 (0.87-1.13) H 08/22/19 02:37 APTT 38.6 Sec. (24.2-36.6) H 08/21/19 20:41 Sodium 134 mmol/L (137-145) L 08/22/19 02:37 Potassium 2.9 mmol/L (3.6-5.0) L* 08/22/19 02:37 Chloride 90.2 mmol/L (98-107) L 08/22/19 02:37 Carbon Dioxide 31 mmol/L (22-30) H 08/22/19 02:37 Anion Gap 16 mmol/L 08/22/19 02:37 BUN 8 mg/dL (7-17) 08/22/19 02:37 Creatinine 0.6 mg/dL (0.7-1.2) L 08/22/19 02:37 Estimated GFR > 60 ml/min 08/22/19 02:37 BUN/Creatinine Ratio 13 % 08/22/19 02:37 Glucose 163 mg/dL (65-100) H 08/22/19 02:37 Calcium 8.4 mg/dL (8.4-10.2) 08/22/19 02:37 Magnesium 1.50 mg/dL (1.7-2.3) L 08/21/19 20:47 Total Bilirubin 1.20 mg/dL (0.1-1.2) 08/21/19 20:41 AST 45 units/L (5-40) H 08/21/19 20:41 ALT 17 units/L (7-56) 08/21/19 20:41 Alkaline Phosphatase 77 units/L (35-129) 08/21/19 20:41 Troponin T 0.020 ng/mL (0.00-0.029) 08/22/19 02:37 NT-Pro-B Natriuret Pep 1347 pg/mL (0-900) H 08/21/19 20:41 Total Protein 5.8 g/dL (6.3-8.2) L 08/21/19 20:41 Albumin 2.6 g/dL (3.9-5) L 08/21/19 20:41 Albumin/Globulin Ratio 0.8 % 08/21/19 20:41 Triglycerides 81 mg/dL (2-149) 08/21/19 20:47 Cholesterol 112 mg/dL (50-199) 08/21/19 20:47 LDL Cholesterol Direct 48 mg/dL (50-130) L 08/21/19 20:47 HDL Cholesterol 64 mg/dL (40-59) H 08/21/19 20:47 Cholesterol/HDL Ratio 1.75 % 08/21/19 20:47 Barreto/IV: Voiding Method Incontinent IV Catheter Type [Left Forearm INT / Saline Lock ] Active Medications - Current Medications Current Medications: Generic Name Dose Route Start Last Admin Trade Name Freq PRN Reason Stop Dose Admin Albuterol 2.5 mg 08/22/19 09:22 Proventil IH Q4HRT PRN Shortness Of Breath Albuterol/Ipratropium 1 ampul 08/22/19 21:00 08/23/19 08:12 Duoneb *Not For Prn Use* IH Not Given TIDRT BENNY Apixaban 5 mg 08/22/19 10:00 08/22/19 21:26 Eliquis PO 5 mg Q12HR BENNY Administration Protocol Arformoterol Tartrate 15 mcg 08/22/19 20:00 08/23/19 08:12 Brovana Nebu IH 15 mcg Q12HRT BENNY Administration Benzonatate 100 mg 08/22/19 09:20 08/22/19 21:26 Tessalon Perles PO 100 mg Q8HR PRN Administration Cough Budesonide 0.5 mg 08/22/19 20:00 08/23/19 08:12 Pulmicort IH 0.5 mg Q12HRT BENNY Administration Dextrose 0 ml 08/21/19 22:17 D50w (25gm) Syringe IV Q30MIN PRN Hypoglycemia Protocol Diltiazem HCl 240 mg 08/22/19 10:00 08/22/19 10:40 Cardizem Cd PO 240 mg QDAY BENNY Administration Insulin Human Lispro 0 unit 08/22/19 07:30 08/22/19 21:27 Humalog SUB-Q Not Given ACHS BENNY Protocol Magnesium Hydroxide 30 ml 08/21/19 22:17 Milk Of Magnesia PO Q4H PRN Constipation Metformin HCl 500 mg 08/22/19 10:00 08/22/19 21:27 Glucophage PO 500 mg BID BENNY Administration Methylprednisolone Sodium Succinate 40 mg 08/22/19 14:00 08/23/19 06:16 Solu-Medrol IV 40 mg Q8HR BENNY Administration Montelukast Sodium 10 mg 08/22/19 18:00 08/22/19 21:35 Singulair PO 10 mg QPM BENNY Administration Morphine Sulfate 2 mg 08/21/19 22:17 08/22/19 15:55 Morphine IV 2 mg Q4H PRN Administration Pain, Moderate (4-6) Ondansetron HCl 4 mg 08/21/19 22:17 Zofran IV Q8H PRN Nausea And Vomiting Pantoprazole Sodium 40 mg 08/22/19 10:00 08/22/19 10:40 Protonix PO 40 mg QDAY BENNY Administration Paroxetine HCl 20 mg 08/22/19 10:00 08/22/19 10:40 Paxil PO 20 mg DAILY BENNY Administration Sodium Chloride 10 ml 08/22/19 10:00 08/22/19 21:27 Sodium Chloride Flush Syringe 10 Ml IV 10 ml BID BENNY Administration Sodium Chloride 10 ml 08/21/19 22:17 08/23/19 06:17 Sodium Chloride Flush Syringe 10 Ml IV 10 ml PRN PRN Administration LINE FLUSH Nutrition/Malnutrition Assess - Dietary Evaluation Nutrition/Malnutrition Findings: Nutrition Notes Start: 08/22/19 10:42 Freq: Status: Active Protocol: Document 08/22/19 10:42 JANUARY (Rec: 08/22/19 10:49 MOROYA [email or web address]) Nutrition Notes Need for Assessment generated from: MD Order,Education Initial or Follow up Assessment Current Diagnosis COPD,Diabetes,Hypertension Other Pertinent Diagnosis LE edema, afib with RVR, Dementia Current Diet Cardiac/Consistent CHO Labs/Tests K 2.9 BG 163 Pertinent Medications Solumedrol Height 5 ft 2 in Weight 72.57 kg Capron Body Weight (kg) 50.00 BMI 29.2 Weight Status Overweight Subjective/Other Information RD consulted for diet education. Pt in ED at this time and is only alert and oriented to self at this time; not appropriate for diet education. Burn Absent Trauma Absent Minimum of two criteria No #1 Nutrition Diagnosis Predicted suboptimal energy intake Etiology dementia As Evidenced by Signs and Symptoms pt confused at admission Is patient on ventilator? No Is Patient Ambulatory and/or Out of Bed No REE-([facility]-confined to bed) 1391.448 Calculation Used for Recommendations [facility] Additional Notes Pro needs 1.2-2g/k-145g/ day Fluid needs 1ml/kcal Nutrition Intervention Change Diet Order: Continue current diet order Goal #1 PO intakes to meet at least 75 % energy and pro needs Anticipated Discharge Needs: None identified at this time Follow-Up By: 08/25/19 Additional Comments F/U: intakes
[2019-08-23] MEDS: metFORMIN 500 MG TAB PO SCH ×2 (10:55→22:12)
[2019-08-23] MEDS: dilTIAZem CD 240 MG CAP PO SCH (10:55)
[2019-08-23] MEDS: APIXABAN 5 MG TAB PO SCH ×2 (10:56→22:12)
[2019-08-23] MEDS: PANTOPRAZOLE 40 MG TAB PO SCH (10:56)
[2019-08-23] MEDS: PARoxetine 20 MG TAB PO SCH (10:56)
--- NOTE | 2019-08-23 11:41 | Progress Note ---
Assessment and Plan Paroxysmal atrial fibrillation reverted to sinus rhythm on diltiazem for suppression on eliquis normal LVEF 55-60% by echo 04/2019 Hypokalemia Chronic obstructive pulmonary disease Dementia Alzheimer's type Essential hypertension Replete potassium. Continue medical therapy for paroxysmal Afib. Otherwise, conservative cardiac management. Stable cardiac jones. Subjective Date of service: 08/23/19 Interval history: Patient is resting in bed comfortably. Wants to go home. Stable sinus rhythm on telemetry. Objective Vital Signs Temp Pulse Pulse Resp Resp BP BP 08/23/19 10:55 87 102/41 08/23/19 08:13 90 16 08/23/19 08:11 08/23/19 07:54 98.6 F 87 18 102/41 08/23/19 04:13 97.9 F 102 H 19 131/57 08/22/19 22:55 98.1 F 83 18 108/53 08/22/19 22:19 83 08/22/19 21:26 97.4 F L 18 08/22/19 21:24 97.4 F L 89 18 112/48 08/22/19 21:15 98 H 18 115/42 08/22/19 18:52 82 28 H 103/44 08/22/19 18:41 83 13 103/44 08/22/19 18:31 102 H 24 103/44 08/22/19 18:21 99 H 24 103/44 08/22/19 18:10 82 28 H 103/44 08/22/19 18:00 85 29 H 110/47 08/22/19 17:50 91 H 26 H 113/44 08/22/19 17:40 86 16 97/52 08/22/19 17:30 78 27 H 99/43 08/22/19 17:20 85 26 H 105/47 08/22/19 17:11 87 21 112/51 08/22/19 17:10 87 21 112/51 08/22/19 17:01 86 19 139/63 08/22/19 16:41 86 43 H 139/63 08/22/19 16:31 87 30 H 139/63 08/22/19 16:21 140/63 08/22/19 16:11 140/63 08/22/19 16:00 84 21 135/70 134/74 05/17/20 15:55 21 08/22/19 15:51 139/63 0520 15:41 139/68 0520 15:31 136/70 0520 15:21 153/51 0520 15:11 139/54 0520 15:01 134/74 05 14:51 122/42 0520 14:40 123/47 05 14:31 152/62 05 14:21 134/65 05 14:11 134/65 0520 14:01 134/65 05 13:51 84 20 119/54 0520 13:40 92 H 35 H 128/52 0520 13:30 84 25 H 133/55 0520 13:20 86 28 H 122/59 0520 13:10 95 H 22 132/55 0520 13:01 96 H 34 H 123/63 0520 12:51 95 H 31 H 113/59 0520 12:40 97 H 40 H 139/61 08/22/19 12:31 93 H 33 H 118/52 0520 12:21 96 H 21 135/69 05 12:01 91 H 21 135/69 Pulse Ox 08/23/19 10:55 08/23/19 08:13 08/23/19 08:11 98 08/23/19 07:54 100 08/23/19 04:13 96 08/22/19 22:55 97 08/22/19 22:19 08/22/19 21:26 20 21:24 96 20 21:15 98 08/22/19 18:52 97 20 18:41 97 20 18:31 0520 18:21 05 18:10 05 18:00 0520 17:50 0520 17:40 0520 17:30 0520 17:20 0520 17:11 05 17:10 98 08/22/19 17:01 08/22/19 16:41 05 16:31 62 L 05/17/20 16:21 98 08/22/19 16:11 98 08/22/19 16:00 93 08/22/19 15:55 08/22/19 15:51 93 08/22/19 15:41 93 08/22/19 15:31 93 08/22/19 15:21 93 08/22/19 15:11 90 08/22/19 15:01 92 08/22/19 14:51 93 08/22/19 14:40 92 08/22/19 14:31 93 08/22/19 14:21 93 08/22/19 14:11 92 08/22/19 14:01 92 08/22/19 13:51 94 08/22/19 13:40 94 08/22/19 13:30 93 08/22/19 13:20 93 08/22/19 13:10 93 08/22/19 13:01 92 08/22/19 12:51 92 08/22/19 12:40 91 08/22/19 12:31 92 08/22/19 12:21 90 08/22/19 12:01 92 - Physical Examination General: No Apparent Distress HEENT: Positive: PERRL Neck: Positive: neck supple Cardiac: Positive: Reg Rate and Rhythm Neuro: Positive: Grossly Intact Extremities: Absent: edema
[2019-08-23] MEDS ORDERED: PERMETHRIN 5% CREAM 60 GM TP ONE (17:00)
--- NOTE | 2019-08-23 17:03 | Progress Note ---
Subjective Date of service: 08/23/19 Interval history: follow up for acute and chronic hypoxic respiratory failure; AE-COPD Objective Vital Signs - 12hr 08/23/19 08/23/19 08/23/19 07:54 08:11 08:13 Temperature 98.6 F Pulse Rate 87 Pulse Rate [ 90 Anterior Bilateral Throughout] Respiratory 18 Rate Respiratory 16 Rate [Anterior Bilateral Throughout] Blood Pressure 102/41 O2 Sat by Pulse 100 98 Oximetry 08/23/19 08/23/19 08/23/19 10:55 12:11 13:00 Temperature 97.9 F Pulse Rate 87 90 Pulse Rate [ Anterior Bilateral Throughout] Respiratory 18 20 Rate Respiratory Rate [Anterior Bilateral Throughout] Blood Pressure 102/41 118/54 O2 Sat by Pulse 93 99 Oximetry 08/23/19 14:29 Temperature Pulse Rate Pulse Rate [ 77 Anterior Bilateral Throughout] Respiratory Rate Respiratory 18 Rate [Anterior Bilateral Throughout] Blood Pressure O2 Sat by Pulse Oximetry CBC and BMP: 08/22/19 02:37 08/22/19 02:37 ABG, PT/INR, D-dimer: PT/INR, D-dimer PT 19.7 Sec. (12.2-14.9) H 08/22/19 02:37 INR 1.67 (0.87-1.13) H 08/22/19 02:37 Abnormal lab findings: Abnormal Labs 08/21/19 08/21/19 08/21/19 20:41 20:41 20:41 WBC 11.1 H MCV 78 L MCH 25 L RDW 16.4 H Seg Neuts % (Manual) 83.0 H Lymphocytes % (Manual) 10.0 L Seg Neutrophils # Man 9.2 H Lymphocytes # (Manual) 1.1 L PT 19.0 H INR 1.59 H APTT 38.6 H Sodium 131 L Potassium 3.2 L Chloride 88.7 L Carbon Dioxide BUN 6 L Creatinine 0.5 L Glucose 109 H Calcium 8.3 L Magnesium AST 45 H Troponin T NT-Pro-B Natriuret Pep 1347 H Total Protein 5.8 L Albumin 2.6 L LDL Cholesterol Direct HDL Cholesterol 08/21/19 08/21/19 08/22/19 20:47 20:47 02:37 WBC MCV 78 L MCH 25 L RDW 16.5 H Seg Neuts % (Manual) 90.0 H Lymphocytes % (Manual) 6.0 L Seg Neutrophils # Man Lymphocytes # (Manual) 0.5 L PT INR APTT Sodium Potassium Chloride Carbon Dioxide BUN Creatinine Glucose Calcium Magnesium 1.50 L AST Troponin T 0.030 H NT-Pro-B Natriuret Pep Total Protein Albumin LDL Cholesterol Direct 48 L HDL Cholesterol 64 H 08/22/19 08/22/19 02:37 02:37 WBC MCV MCH RDW Seg Neuts % (Manual) Lymphocytes % (Manual) Seg Neutrophils # Man Lymphocytes # (Manual) PT 19.7 H INR 1.67 H APTT Sodium 134 L Potassium 2.9 L* Chloride 90.2 L Carbon Dioxide 31 H BUN Creatinine 0.6 L Glucose 163 H Calcium Magnesium AST Troponin T NT-Pro-B Natriuret Pep Total Protein Albumin LDL Cholesterol Direct HDL Cholesterol
--- NOTE | 2019-08-23 17:38 | Event Note ---
Date: 08/23/[address] Hernandez admitted with acute and chronic hypoxic respiratory failure and AECOPD. Notified Dr. Posada who will assume care
[2019-08-23] MEDS: MONTELUKAST 10 MG TAB PO SCH (18:10)
[2019-08-24] MEDS: methylPREDNISolone Sod Succinate 40 MG/1 ML INJ IV SCH (05:27)
[2019-08-24] MEDS ORDERED: POTASSIUM CHLORIDE 10 MEQ 10 MEQ/100 ML BAG IV SCH (08:00)
[2019-08-24] MEDS ORDERED: POTASSIUM CHLORIDE ER 20 MEQ TAB PO SCH (08:00)
[2019-08-24] MEDS: INSULIN LISPRO 100 UNIT/ML SUB-Q SCH ×3 (08:17→17:36)
[2019-08-24 09:16] LABS: Hematocrit 28.7 % (30.3-42.9); Hemoglobin 9.5 gm/dl (10.1-14.3); Mean Corpuscular HGB Conc 33 % (30-34); Mean Corpuscular Volume 77 fl (79-97); Platelet Count 215 K/mm3 (140-440); Red Blood Count 3.72 M/mm3 (3.65-5.03); Red Cell Distribution Width 17.3 % (13.2-15.2)
[2019-08-24 09:41] LABS: BUN/Creatinine Ratio 23; Blood Urea Nitrogen 16 mg/dL (7-17); Calcium 8.9 mg/dL (8.4-10.2); Hemolysis Index 1
[2019-08-24] MEDS: IPRATROPIUM/ALBUTEROL SULFATE 3 ML AMPUL.NEB IH SCH ×3 (10:12→20:51)
[2019-08-24] MEDS: BUDESONIDE 0.5 MG/2 ML NEBU IH SCH ×2 (10:12→20:51)
[2019-08-24] MEDS: ARFORMOTEROL 15 MCG/2 ML NEBU IH SCH ×2 (10:13→20:53)
[2019-08-24] MEDS: PARoxetine 20 MG TAB PO SCH (10:14)
[2019-08-24] MEDS: APIXABAN 5 MG TAB PO SCH ×2 (10:14→21:47)
[2019-08-24] MEDS: metFORMIN 500 MG TAB PO SCH ×2 (10:14→21:47)
--- NOTE | 2019-08-24 10:16 | Progress Note ---
Assessment and Plan Paroxysmal atrial fibrillation/MAT reverted to sinus rhythm on diltiazem for suppression on eliquis for anticoagulation normal LVEF 55-60% by echo 04/2019 Hypokalemia- replaced Chronic obstructive pulmonary disease Dementia Alzheimer's type Essential hypertension Recommendations: Continue medical therapy for paroxysmal Afib. Otherwise, conservative cardiac management. Subjective Date of service: 08/24/19 Interval history: Patient is alert with confusion. Stable sinus rhythm on telemetry. Objective Vital Signs Temp Pulse Pulse Resp Resp BP BP 08/24/19 08:45 73 08/24/19 05:00 08/24/19 04:28 97.5 F L 90 18 118/49 08/23/19 23:26 98.7 F 104 H 18 118/52 08/23/19 21:16 08/23/19 21:15 88 18 08/23/19 19:54 97.8 F 88 18 122/56 08/23/19 16:24 98.0 F 80 18 105/36 08/23/19 14:29 77 18 08/23/19 13:00 20 08/23/19 12:11 97.9 F 90 18 118/54 08/23/19 10:55 87 102/41 Pulse Ox 08/24/19 08:45 08/24/19 05:00 90 08/24/19 04:28 85 08/23/19 23:26 96 08/23/19 21:16 97 08/23/19 21:15 08/23/19 19:54 96 08/23/19 16:24 94 08/23/19 14:29 08/23/19 13:00 99 08/23/19 12:11 93 08/23/19 10:55 - Physical Examination General: No Apparent Distress HEENT: Positive: PERRL Neck: Positive: neck supple Cardiac: Positive: Reg Rate and Rhythm - Labs and Meds CBC 08/24/19 Range/Units 09:00 WBC 6.3 (4.5-11.0) K/mm3 RBC 3.72 (3.65-5.03) M/mm3 Hgb 9.5 L (10.1-14.3) gm/dl Hct 28.7 L (30.3-42.9) % Plt Count 215 (140-440) K/mm3 Comprehensive Metabolic Panel 08/24/19 Range/Units 09:00 Sodium 138 (137-145) mmol/L Potassium 3.7 D (3.6-5.0) mmol/L Chloride 93.6 L (98-107) mmol/L Carbon Dioxide 33 H (22-30) mmol/L BUN 16 (7-17) mg/dL Creatinine 0.7 (0.7-1.2) mg/dL Glucose 174 H (65-100) mg/dL Calcium 8.9 (8.4-10.2) mg/dL
[2019-08-24] MEDS: dilTIAZem CD 240 MG CAP PO SCH (10:31)
[2019-08-24] MEDS: PANTOPRAZOLE 40 MG TAB PO SCH (10:38)
--- NOTE | 2019-08-24 12:03 | Consultation ---
History of Present Illness Consult date: 08/24/19 Requesting physician: LIAM HOROWITZ Reason for consult: COPD History of present illness: 79 y/o female, with chronic respiratory failure and COPD, admitted with afib with RVR over the weekend. Patient was started on Cardizem drip and has been followed by cardiology. Subsequently rate improved and patient was moved out of the ICU. She was being followed by Critical Care and then it was discovered that she follows in the office with Dr. Hernandez. She is on home oxygen therapy and has known COPD. She was last seen by Dr. Hernandez in in 11/2018 and we last ordered O2 for her in 2018 at 2 liters. IMS was concerned that she may be in a COPD exacerbation and started IV steroids as well. Past History Past Medical History: atrial fib, arthritis, COPD, diabetes, hypertension Past Surgical History: cholecystectomy, Other (Right breast surgery) Social history: no significant social history Family history: no significant family history Medications and Allergies Allergies Allergy/AdvReac Type Severity Reaction Status Date / Time promethazine HCl AdvReac LEG PAIN Verified 08/22/17 23:38 [From Phenergan] Home Medications Medication Instructions Recorded Confirmed Last Taken Type Esomeprazole Magnesium [NexIUM] 40 mg PO QDAY 02/08/13 08/22/19 01/09/14 History Montelukast [Singulair] 10 mg PO QPM 02/08/13 08/22/19 01/08/14 History PARoxetine [Paxil] 20 mg PO DAILY 02/08/13 08/22/19 01/08/14 History metFORMIN [Glucophage] 500 mg PO BID 02/08/13 08/22/19 01/08/14 History Benzonatate [Tessalon Perles] 100 mg PO Q8HR PRN #30 capsule 12/20/16 08/22/19 Unknown Rx Polymyxin B Sulf/Trimethoprim 2 drop OS TID 7 Days #10 ml 09/02/17 08/22/19 Unknown Rx [Polytrim Eye Drops] Fluticasone/Salmeterol(Nf) [Advair 1 puff PO BID #1 hfa.aer.ad 01/12/18 08/22/19 Unknown Rx HFA 115-21 mcg] Ipratropium/Albuterol Sulfate 1 ampul IH Q8HRT #120 ampul.neb 01/12/18 08/22/19 Unknown Rx [DUONEB *Not for PRN Use*] Albuterol Sulfate [Proventil Hfa] 2 puff IH Q4HR PRN #1 hfa.aer.ad 04/08/19 08/22/19 Unknown Rx dilTIAZem CD [Cardizem CD] 240 mg PO QDAY #30 capsule 04/24/19 08/22/19 Unknown Rx Apixaban [Eliquis] 5 mg PO Q12HR #60 tablet 08/01/19 08/22/19 Unknown Rx Prednisone [predniSONE 10 mg 10 mg PO .TAPER #1 tab.ds.pk 08/01/19 08/22/19 Unknown Rx (6-Day Pack, 21 Tabs)] LORazepam [Ativan] 1 mg PO Q4H PRN 08/22/19 08/22/19 Unknown History Active Meds: Active Medications Albuterol (Proventil) 2.5 mg IH Q4HRT PRN PRN Reason: Shortness Of Breath Albuterol/Ipratropium (Duoneb *Not For Prn Use*) 1 ampul IH TIDRT [facility] Last Admin: 08/24/19 10:12 Dose: 1 ampul Documented by: Apixaban (Eliquis) 5 mg PO Q12HR BENNY; Protocol Last Admin: 08/24/19 10:14 Dose: 5 mg Documented by: Arformoterol Tartrate (Brovana Nebu) 15 mcg IH Q12HRT [facility] Last Admin: 08/24/19 10:13 Dose: 15 mcg Documented by: Benzonatate (Tessalon Perles) 100 mg PO Q8HR PRN PRN Reason: Cough Last Admin: 08/22/19 21:26 Dose: 100 mg Documented by: Budesonide (Pulmicort) 0.5 mg IH Q12HRT [facility] Last Admin: 08/24/19 10:12 Dose: 0.5 mg Documented by: Dextrose (D50w (25gm) Syringe) 0 ml IV Q30MIN PRN; Protocol PRN Reason: Hypoglycemia Diltiazem HCl (Cardizem Cd) 240 mg PO QDAY [facility] Last Admin: 08/24/19 10:31 Dose: 240 mg Documented by: Insulin Human Lispro (Humalog) 0 unit SUB-Q ACHS BENNY; Protocol Last Admin: 08/24/19 08:17 Dose: 2 unit Documented by: Magnesium Hydroxide (Milk Of Magnesia) 30 ml PO Q4H PRN PRN Reason: Constipation Metformin HCl (Glucophage) 500 mg PO BID [facility] Last Admin: 08/24/19 10:14 Dose: 500 mg Documented by: Methylprednisolone Sodium Succinate (Solu-Medrol) 40 mg IV Q8HR [facility] Last Admin: 08/24/19 05:27 Dose: 40 mg Documented by: Montelukast Sodium (Singulair) 10 mg PO QPM [facility] Last Admin: 08/23/19 18:10 Dose: 10 mg Documented by: Morphine Sulfate (Morphine) 2 mg IV Q4H PRN PRN Reason: Pain, Moderate (4-6) Last Admin: 08/22/19 15:55 Dose: 2 mg Documented by: Ondansetron HCl (Zofran) 4 mg IV Q8H PRN PRN Reason: Nausea And Vomiting Pantoprazole Sodium (Protonix) 40 mg PO QDAY [facility] Last Admin: 08/24/19 10:38 Dose: 40 mg Documented by: Paroxetine HCl (Paxil) 20 mg PO DAILY [facility] Last Admin: 08/24/19 10:14 Dose: 20 mg Documented by: Sodium Chloride (Sodium Chloride Flush Syringe 10 Ml) 10 ml IV BID [facility] Last Admin: 08/23/19 22:12 Dose: 10 ml Documented by: Sodium Chloride (Sodium Chloride Flush Syringe 10 Ml) 10 ml IV PRN PRN PRN Reason: LINE FLUSH Last Admin: 08/23/19 06:17 Dose: 10 ml Documented by: Review of Systems All systems: negative Physical Examination Vital signs: Vital Signs Pulse Resp BP Pulse Ox 158 H 19 145/107 99 08/21/19 19:43 08/21/19 19:43 08/21/19 19:43 08/21/19 19:43 General appearance: no acute distress, alert Eyes: non-icteric ENT: oropharynx moist Neck: supple Ascultation: Bilateral: clear Results - Laboratory Findings CBC and BMP: 08/24/19 09:00 08/24/19 09:00 PT/INR, D-dimer PT 19.7 Sec. (12.2-14.9) H 08/22/19 02:37 INR 1.67 (0.87-1.13) H 08/22/19 02:37 Abnormal lab findings: Abnormal Labs 08/21/19 08/21/19 08/21/19 20:41 20:41 20:41 WBC 11.1 H Hgb Hct MCV 78 L MCH 25 L RDW 16.4 H Seg Neuts % (Manual) 83.0 H Lymphocytes % (Manual) 10.0 L Seg Neutrophils # Man 9.2 H Lymphocytes # (Manual) 1.1 L PT 19.0 H INR 1.59 H APTT 38.6 H Sodium 131 L Potassium 3.2 L Chloride 88.7 L Carbon Dioxide BUN 6 L Creatinine 0.5 L Glucose 109 H POC Glucose Calcium 8.3 L Magnesium AST 45 H Troponin T NT-Pro-B Natriuret Pep 1347 H Total Protein 5.8 L Albumin 2.6 L LDL Cholesterol Direct HDL Cholesterol 08/21/19 08/21/19 08/22/19 20:47 20:47 02:37 WBC Hgb Hct MCV 78 L MCH 25 L RDW 16.5 H Seg Neuts % (Manual) 90.0 H Lymphocytes % (Manual) 6.0 L Seg Neutrophils # Man Lymphocytes # (Manual) 0.5 L PT INR APTT Sodium Potassium Chloride Carbon Dioxide BUN Creatinine Glucose POC Glucose Calcium Magnesium 1.50 L AST Troponin T 0.030 H NT-Pro-B Natriuret Pep Total Protein Albumin LDL Cholesterol Direct 48 L HDL Cholesterol 64 H 08/22/19 08/22/19 08/22/19 02:37 02:37 08:48 WBC Hgb Hct MCV MCH RDW Seg Neuts % (Manual) Lymphocytes % (Manual) Seg Neutrophils # Man Lymphocytes # (Manual) PT 19.7 H INR 1.67 H APTT Sodium 134 L Potassium 2.9 L* Chloride 90.2 L Carbon Dioxide 31 H BUN Creatinine 0.6 L Glucose 163 H POC Glucose 182 H Calcium Magnesium AST Troponin T NT-Pro-B Natriuret Pep Total Protein Albumin LDL Cholesterol Direct HDL Cholesterol 08/22/19 08/22/19 08/23/19 19:10 21:34 08:09 WBC Hgb Hct MCV MCH RDW Seg Neuts % (Manual) Lymphocytes % (Manual) Seg Neutrophils # Man Lymphocytes # (Manual) PT INR APTT Sodium Potassium Chloride Carbon Dioxide BUN Creatinine Glucose POC Glucose 178 H 151 H 207 H Calcium Magnesium AST Troponin T NT-Pro-B Natriuret Pep Total Protein Albumin LDL Cholesterol Direct HDL Cholesterol 08/23/19 08/23/19 08/23/19 12:22 16:34 21:18 WBC Hgb Hct MCV MCH RDW Seg Neuts % (Manual) Lymphocytes % (Manual) Seg Neutrophils # Man Lymphocytes # (Manual) PT INR APTT Sodium Potassium Chloride Carbon Dioxide BUN Creatinine Glucose POC Glucose 125 H 136 H 137 H Calcium Magnesium AST Troponin T NT-Pro-B Natriuret Pep Total Protein Albumin LDL Cholesterol Direct HDL Cholesterol 08/24/19 08/24/19 08/24/19 08:21 09:00 09:00 WBC Hgb 9.5 L Hct 28.7 L MCV 77 L MCH 26 L RDW 17.3 H Seg Neuts % (Manual) Lymphocytes % (Manual) Seg Neutrophils # Man Lymphocytes # (Manual) PT INR APTT Sodium Potassium Chloride 93.6 L Carbon Dioxide 33 H BUN Creatinine Glucose 174 H POC Glucose 184 H Calcium Magnesium AST Troponin T NT-Pro-B Natriuret Pep Total Protein Albumin LDL Cholesterol Direct HDL Cholesterol 08/24/19 11:59 WBC Hgb Hct MCV MCH RDW Seg Neuts % (Manual) Lymphocytes % (Manual) Seg Neutrophils # Man Lymphocytes # (Manual) PT INR APTT Sodium Potassium Chloride Carbon Dioxide BUN Creatinine Glucose POC Glucose 188 H Calcium Magnesium AST Troponin T NT-Pro-B Natriuret Pep Total Protein Albumin LDL Cholesterol Direct HDL Cholesterol Assessment and Plan 79 y/o female with known COPD and chronic respiratory failure, admitted with Afib with RVR. 1. Stable on baseline flow of oxygen 2. No wheezing on exam. Suggest switching to orals and tapering, but patient has only been on for 4 days, ok to stop steroids 3. Continue BID pulmicort and brovana 4. Will continue to follow.
--- NOTE | 2019-08-24 16:00 | Progress Note ---
Assessment and Plan Assessment and plan: Paroxysmal atrial fibrillation with RVR. Continue Cardizem drip per cardiology recommendations. Continue chronic anticoagulation with Eliquis. Acute hypoxic respiratory failure. Etiology secondary to COPD. Continue O2 and BiPAP as clinically indicated. Acute COPD exacerbation. Continue bronchodilators, inhaled steroids and IV steroids. Type 2 diabetes mellitus. Continue Accu-Cheks and sliding scale insulin. ADA diet. Dementia. Continue home medications. Hypokalemia. Replete potassium. Hypertension. Continue antihypertensive medications. 08/23/2019. Patient previously with Cardizem drip for A. fib with RVR which has been discontinued. Patient started back on home regimen of diltiazem CD 240 mg daily and Eliquis 5 mg twice daily. Patient has reverted back to a stable sinus rhythm. EKG is negative for ischemia. Cardiology following. Continue bronchodilators/nebulizers and IV steroids for COPD exacerbation. Pulmonology following. 08/24/2019 Patient with atrial fibrillation with RVR, acute respiratory failure due to COPD exacerbation, diabetes. Less shortness of breath History Interval history: Shortness of breath Bilateral leg swelling Hospitalist Physical - Physical exam Narrative exam: GEN: Not in acute distress, obese, lying in bed HEENT: Normocephalic, atraumatic, Neck: supple, No JVD Lungs: Bilateral crackles, rhonchi , heart;S1 and S2 irreg, no murmurs, rubs or gallop Abd:soft, non tender, non distended, normal bowel sounds, Ext: Bilat edema lowere ext, no cyanosis Neuro: Awake,alert,oriented X3,No focal neurological signs - Constitutional Vitals: Temp Pulse Resp BP Pulse Ox 97.6 F 72 18 138/59 99 08/24/19 11:49 08/24/19 10:31 08/24/19 11:49 08/24/19 11:49 08/24/19 10:00 General appearance: Present: no acute distress HEART Score - HEART Score Troponin: Troponin T 0.020 ng/mL (0.00-0.029) 08/22/19 02:37 Results - Labs CBC & Chem 7: 08/24/19 09:00 08/24/19 09:00 Labs: Laboratory Last Values WBC 6.3 K/mm3 (4.5-11.0) 08/24/19 09:00 RBC 3.72 M/mm3 (3.65-5.03) 08/24/19 09:00 Hgb 9.5 gm/dl (10.1-14.3) L 08/24/19 09:00 Hct 28.7 % (30.3-42.9) L 08/24/19 09:00 MCV 77 fl (79-97) L 08/24/19 09:00 MCH 26 pg (28-32) L 08/24/19 09:00 MCHC 33 % (30-34) 08/24/19 09:00 RDW 17.3 % (13.2-15.2) H 08/24/19 09:00 Plt Count 215 K/mm3 (140-440) 08/24/19 09:00 Add Manual Diff Complete 08/22/19 02:37 Total Counted 100 08/22/19 02:37 Seg Neutrophils % New Accounts Representative 08/22/19 02:37 Seg Neuts % (Manual) 90.0 % (40.0-70.0) H 08/22/19 02:37 Band Neutrophils % 0 % 08/22/19 02:37 Lymphocytes % (Manual) 6.0 % (13.4-35.0) L 08/22/19 02:37 Reactive Lymphs % (Man) 0 % 08/22/19 02:37 Monocytes % (Manual) 4.0 % (0.0-7.3) 08/22/19 02:37 Eosinophils % (Manual) 0 % (0.0-4.3) 08/22/19 02:37 Basophils % (Manual) 0 % (0.0-1.8) 08/22/19 02:37 Metamyelocytes % 0 % 08/22/19 02:37 Myelocytes % 0 % 08/22/19 02:37 Promyelocytes % 0 % 08/22/19 02:37 Blast Cells % 0 % 08/22/19 02:37 Nucleated RBC % Not Reportable 08/22/19 02:37 Seg Neutrophils # Man 6.8 K/mm3 (1.8-7.7) 08/22/19 02:37 Band Neutrophils # 0.0 K/mm3 08/22/19 02:37 Lymphocytes # (Manual) 0.5 K/mm3 (1.2-5.4) L 08/22/19 02:37 Abs React Lymphs (Man) 0.0 K/mm3 08/22/19 02:37 Monocytes # (Manual) 0.3 K/mm3 (0.0-0.8) 08/22/19 02:37 Eosinophils # (Manual) 0.0 K/mm3 (0.0-0.4) 08/22/19 02:37 Basophils # (Manual) 0.0 K/mm3 (0.0-0.1) 08/22/19 02:37 Metamyelocytes # 0.0 K/mm3 08/22/19 02:37 Myelocytes # 0.0 K/mm3 08/22/19 02:37 Promyelocytes # 0.0 K/mm3 08/22/19 02:37 Blast Cells # 0.0 K/mm3 08/22/19 02:37 WBC Morphology Not Reportable 08/22/19 02:37 Hypersegmented Neuts Not Reportable 08/22/19 02:37 Hyposegmented Neuts Not Reportable 08/22/19 02:37 Hypogranular Neuts Not Reportable 08/22/19 02:37 Smudge Cells Not Reportable 08/22/19 02:37 Toxic Granulation Not Reportable 08/22/19 02:37 Toxic Vacuolation Not Reportable 08/22/19 02:37 Dohle Bodies Not Reportable 08/22/19 02:37 Pelger-Huet Anomaly Not Reportable 08/22/19 02:37 Serena Rods Not Reportable 08/22/19 02:37 Platelet Estimate Not Reportable 08/22/19 02:37 Clumped Platelets Not Reportable 08/22/19 02:37 Plt Clumps, EDTA Not Reportable 08/22/19 02:37 Large Platelets Not Reportable 08/22/19 02:37 Giant Platelets Not Reportable 08/22/19 02:37 Platelet Satelliting Not Reportable 08/22/19 02:37 Plt Morphology Comment Not Reportable 08/22/19 02:37 RBC Morphology Not Reportable 08/22/19 02:37 Dimorphic RBCs Not Reportable 08/22/19 02:37 Polychromasia Not Reportable 08/22/19 02:37 Hypochromasia 1+ 08/22/19 02:37 Poikilocytosis Not Reportable 08/22/19 02:37 Anisocytosis 1+ 08/22/19 02:37 Microcytosis Not Reportable 08/22/19 02:37 Macrocytosis Not Reportable 08/22/19 02:37 Spherocytes Not Reportable 08/22/19 02:37 Pappenheimer Bodies Not Reportable 08/22/19 02:37 Sickle Cells Not Reportable 08/22/19 02:37 Target Cells Not Reportable 08/22/19 02:37 Tear Drop Cells Not Reportable 08/22/19 02:37 Ovalocytes Not Reportable 08/22/19 02:37 Helmet Cells Not Reportable 08/22/19 02:37 Cerrato-Golva Bodies Not Reportable 08/22/19 02:37 [place] Rings Not Reportable 08/22/19 02:37 [place] Cells Not Reportable 08/22/19 02:37 Bite Cells Not Reportable 08/22/19 02:37 Crenated Cell Not Reportable 08/22/19 02:37 Elliptocytes Not Reportable 08/22/19 02:37 Acanthocytes (Spur) Not Reportable 08/22/19 02:37 Rouleaux Not Reportable 08/22/19 02:37 Hemoglobin C Crystals Not Reportable 08/22/19 02:37 Schistocytes Not Reportable 08/22/19 02:37 Malaria parasites Not Reportable 08/22/19 02:37 Marco Bodies Not Reportable 08/22/19 02:37 Hem Pathologist Commnt No 08/22/19 02:37 PT 19.7 Sec. (12.2-14.9) H 08/22/19 02:37 INR 1.67 (0.87-1.13) H 08/22/19 02:37 APTT 38.6 Sec. (24.2-36.6) H 08/21/19 20:41 Sodium 138 mmol/L (137-145) 08/24/19 09:00 Potassium 3.7 mmol/L (3.6-5.0) D 08/24/19 09:00 Chloride 93.6 mmol/L (98-107) L 08/24/19 09:00 Carbon Dioxide 33 mmol/L (22-30) H 08/24/19 09:00 Anion Gap 15 mmol/L 08/24/19 09:00 BUN 16 mg/dL (7-17) 08/24/19 09:00 Creatinine 0.7 mg/dL (0.7-1.2) 08/24/19 09:00 Estimated GFR > 60 ml/min 08/24/19 09:00 BUN/Creatinine Ratio 23 % 08/24/19 09:00 Glucose 174 mg/dL (65-100) H 08/24/19 09:00 POC Glucose 188 (70-105) H 08/24/19 11:59 Calcium 8.9 mg/dL (8.4-10.2) 08/24/19 09:00 Magnesium 1.50 mg/dL (1.7-2.3) L 08/21/19 20:47 Total Bilirubin 1.20 mg/dL (0.1-1.2) 08/21/19 20:41 AST 45 units/L (5-40) H 08/21/19 20:41 ALT 17 units/L (7-56) 08/21/19 20:41 Alkaline Phosphatase 77 units/L (35-129) 08/21/19 20:41 Troponin T 0.020 ng/mL (0.00-0.029) 08/22/19 02:37 NT-Pro-B Natriuret Pep 1347 pg/mL (0-900) H 08/21/19 20:41 Total Protein 5.8 g/dL (6.3-8.2) L 08/21/19 20:41 Albumin 2.6 g/dL (3.9-5) L 08/21/19 20:41 Albumin/Globulin Ratio 0.8 % 08/21/19 20:41 Triglycerides 81 mg/dL (2-149) 08/21/19 20:47 Cholesterol 112 mg/dL (50-199) 08/21/19 20:47 LDL Cholesterol Direct 48 mg/dL (50-130) L 08/21/19 20:47 HDL Cholesterol 64 mg/dL (40-59) H 08/21/19 20:47 Cholesterol/HDL Ratio 1.75 % 08/21/19 20:47 Barreto/IV: Voiding Method External Female Catheter IV Catheter Type [Left Forearm INT / Saline Lock ] Active Medications - Current Medications Current Medications: Generic Name Dose Route Start Last Admin Trade Name Freq PRN Reason Stop Dose Admin Albuterol 2.5 mg 08/22/19 09:22 Proventil IH Q4HRT PRN Shortness Of Breath Albuterol/Ipratropium 1 ampul 08/22/19 21:00 08/24/19 15:55 Duoneb *Not For Prn Use* IH 1 ampul TIDRT BENNY Administration Apixaban 5 mg 08/22/19 10:00 08/24/19 10:14 Eliquis PO 5 mg Q12HR BENNY Administration Protocol Arformoterol Tartrate 15 mcg 08/22/19 20:00 08/24/19 10:13 Brovana Nebu IH 15 mcg Q12HRT BENNY Administration Benzonatate 100 mg 08/22/19 09:20 08/22/19 21:26 Tessalon Perles PO 100 mg Q8HR PRN Administration Cough Budesonide 0.5 mg 08/22/19 20:00 08/24/19 10:12 Pulmicort IH 0.5 mg Q12HRT BENNY Administration Dextrose 0 ml 08/21/19 22:17 D50w (25gm) Syringe IV Q30MIN PRN Hypoglycemia Protocol Diltiazem HCl 240 mg 08/22/19 10:00 08/24/19 10:31 Cardizem Cd PO 240 mg QDAY BENNY Administration Insulin Human Lispro 0 unit 08/22/19 07:30 08/24/19 12:12 Humalog SUB-Q 2 unit ACHS BENNY Administration Protocol Magnesium Hydroxide 30 ml 08/21/19 22:17 Milk Of Magnesia PO Q4H PRN Constipation Metformin HCl 500 mg 08/22/19 10:00 08/24/19 10:14 Glucophage PO 500 mg BID BENNY Administration Montelukast Sodium 10 mg 08/22/19 18:00 08/23/19 18:10 Singulair PO 10 mg QPM BENNY Administration Morphine Sulfate 2 mg 08/21/19 22:17 08/22/19 15:55 Morphine IV 2 mg Q4H PRN Administration Pain, Moderate (4-6) Ondansetron HCl 4 mg 08/21/19 22:17 Zofran IV Q8H PRN Nausea And Vomiting Pantoprazole Sodium 40 mg 08/22/19 10:00 08/24/19 10:38 Protonix PO 40 mg QDAY BENNY Administration Paroxetine HCl 20 mg 08/22/19 10:00 08/24/19 10:14 Paxil PO 20 mg DAILY BENNY Administration Sodium Chloride 10 ml 08/22/19 10:00 08/24/19 12:11 Sodium Chloride Flush Syringe 10 Ml IV 10 ml BID BENNY Administration Sodium Chloride 10 ml 08/21/19 22:17 08/23/19 06:17 Sodium Chloride Flush Syringe 10 Ml IV 10 ml PRN PRN Administration LINE FLUSH Nutrition/Malnutrition Assess - Dietary Evaluation Nutrition/Malnutrition Findings: Nutrition Notes Start: 08/22/19 1 0:42 Freq: Status: Active Protocol: Document 08/23/19 15:00 LM (Rec: 08/23/19 15:03 LM [id number]) Nutrition Notes Initial or Follow up Brief Note Current Diagnosis COPD,Diabetes,Hypertension Other Pertinent Diagnosis LE edema, afib with RVR, Dementia Current Diet Cardiac/Consistent CHO Labs/Tests Na 134 K 2.9 Cr 0.6 BG 163 Pertinent Medications Solumedrol Metformin Height 5 ft 2 in Weight 56.3 kg [place] Body Weight (kg) 50.00 BMI 22.6 Weight change and time frame wt change noted Subjective/Other Information Unable to reach pt. Per RN notes pt is confused. Nutrition Intervention Follow-Up By: 08/25/19 Additional Comments F/U: intakes, accurate wt
[2019-08-24] MEDS: MONTELUKAST 10 MG TAB PO SCH (18:20)
[2019-08-25] MEDS: INSULIN LISPRO 100 UNIT/ML SUB-Q SCH ×5 (00:01→22:06)
--- NOTE | 2019-08-25 08:39 | Progress Note ---
Assessment and Plan 79 y/o female with known COPD and chronic respiratory failure, admitted with Afib with RVR. 1. Stable on baseline flow of oxygen 2. Stopped steroids yesterday 3. Continue BID pulmicort and brovana 4. Rate control per cardiology 5. Will continue to follow Subjective Date of service: 08/25/19 Interval history: No acute events. Stable on baseline flow of 3 liters NC at home. Objective Vital Signs - 12hr 08/24/19 08/24/19 08/24/19 20:50 20:54 22:00 Temperature Pulse Rate 71 Pulse Rate [ 88 Anterior Bilateral Throughout] Pulse Rate [ 71 Left Apical] Respiratory 20 Rate Respiratory 22 Rate [Anterior Bilateral Throughout] Blood Pressure O2 Sat by Pulse 98 99 Oximetry 08/24/19 08/25/19 08/25/19 23:21 04:06 07:05 Temperature 97.7 F 97.9 F Pulse Rate 90 120 H Pulse Rate [ Anterior Bilateral Throughout] Pulse Rate [ Left Apical] Respiratory 18 18 20 Rate Respiratory Rate [Anterior Bilateral Throughout] Blood Pressure 141/43 120/68 O2 Sat by Pulse 96 95 99 Oximetry Constitutional: no acute distress, alert Eyes: non-icteric ENT: oropharynx moist Neck: supple Ascultation: Bilateral: clear CBC and BMP: 08/24/19 09:00 08/24/19 09:00 ABG, PT/INR, D-dimer: PT/INR, D-dimer PT 19.7 Sec. (12.2-14.9) H 08/22/19 02:37 INR 1.67 (0.87-1.13) H 08/22/19 02:37 Abnormal lab findings: Abnormal Labs 08/21/19 08/21/19 08/21/19 20:41 20:41 20:41 WBC 11.1 H Hgb Hct MCV 78 L MCH 25 L RDW 16.4 H Seg Neuts % (Manual) 83.0 H Lymphocytes % (Manual) 10.0 L Seg Neutrophils # Man 9.2 H Lymphocytes # (Manual) 1.1 L PT 19.0 H INR 1.59 H APTT 38.6 H Sodium 131 L Potassium 3.2 L Chloride 88.7 L Carbon Dioxide BUN 6 L Creatinine 0.5 L Glucose 109 H POC Glucose Calcium 8.3 L Magnesium AST 45 H Troponin T NT-Pro-B Natriuret Pep 1347 H Total Protein 5.8 L Albumin 2.6 L LDL Cholesterol Direct HDL Cholesterol 08/21/19 08/21/19 08/22/19 20:47 20:47 02:37 WBC Hgb Hct MCV 78 L MCH 25 L RDW 16.5 H Seg Neuts % (Manual) 90.0 H Lymphocytes % (Manual) 6.0 L Seg Neutrophils # Man Lymphocytes # (Manual) 0.5 L PT INR APTT Sodium Potassium Chloride Carbon Dioxide BUN Creatinine Glucose POC Glucose Calcium Magnesium 1.50 L AST Troponin T 0.030 H NT-Pro-B Natriuret Pep Total Protein Albumin LDL Cholesterol Direct 48 L HDL Cholesterol 64 H 08/22/19 08/22/19 08/22/19 02:37 02:37 08:48 WBC Hgb Hct MCV MCH RDW Seg Neuts % (Manual) Lymphocytes % (Manual) Seg Neutrophils # Man Lymphocytes # (Manual) PT 19.7 H INR 1.67 H APTT Sodium 134 L Potassium 2.9 L* Chloride 90.2 L Carbon Dioxide 31 H BUN Creatinine 0.6 L Glucose 163 H POC Glucose 182 H Calcium Magnesium AST Troponin T NT-Pro-B Natriuret Pep Total Protein Albumin LDL Cholesterol Direct HDL Cholesterol 08/22/19 08/22/19 08/23/19 19:10 21:34 08:09 WBC Hgb Hct MCV MCH RDW Seg Neuts % (Manual) Lymphocytes % (Manual) Seg Neutrophils # Man Lymphocytes # (Manual) PT INR APTT Sodium Potassium Chloride Carbon Dioxide BUN Creatinine Glucose POC Glucose 178 H 151 H 207 H Calcium Magnesium AST Troponin T NT-Pro-B Natriuret Pep Total Protein Albumin LDL Cholesterol Direct HDL Cholesterol 08/23/19 08/23/19 08/23/19 12:22 16:34 21:18 WBC Hgb Hct MCV MCH RDW Seg Neuts % (Manual) Lymphocytes % (Manual) Seg Neutrophils # Man Lymphocytes # (Manual) PT INR APTT Sodium Potassium Chloride Carbon Dioxide BUN Creatinine Glucose POC Glucose 125 H 136 H 137 H Calcium Magnesium AST Troponin T NT-Pro-B Natriuret Pep Total Protein Albumin LDL Cholesterol Direct HDL Cholesterol 08/24/19 08/24/19 08/24/19 08:21 09:00 09:00 WBC Hgb 9.5 L Hct 28.7 L MCV 77 L MCH 26 L RDW 17.3 H Seg Neuts % (Manual) Lymphocytes % (Manual) Seg Neutrophils # Man Lymphocytes # (Manual) PT INR APTT Sodium Potassium Chloride 93.6 L Carbon Dioxide 33 H BUN Creatinine Glucose 174 H POC Glucose 184 H Calcium Magnesium AST Troponin T NT-Pro-B Natriuret Pep Total Protein Albumin LDL Cholesterol Direct HDL Cholesterol 08/24/19 08/24/19 08/24/19 11:59 17:29 21:00 WBC Hgb Hct MCV MCH RDW Seg Neuts % (Manual) Lymphocytes % (Manual) Seg Neutrophils # Man Lymphocytes # (Manual) PT INR APTT Sodium Potassium Chloride Carbon Dioxide BUN Creatinine Glucose POC Glucose 188 H 134 H 134 H Calcium Magnesium AST Troponin T NT-Pro-B Natriuret Pep Total Protein Albumin LDL Cholesterol Direct HDL Cholesterol
[2019-08-25] MEDS: BUDESONIDE 0.5 MG/2 ML NEBU IH SCH ×2 (10:45→21:44)
[2019-08-25] MEDS: IPRATROPIUM/ALBUTEROL SULFATE 3 ML AMPUL.NEB IH SCH ×3 (10:45→21:44)
[2019-08-25] MEDS: ARFORMOTEROL 15 MCG/2 ML NEBU IH SCH ×2 (10:45→21:44)
--- NOTE | 2019-08-25 10:51 | Progress Note ---
Assessment and Plan Paroxysmal atrial fibrillation/flutter/MAT reverted to sinus rhythm on diltiazem for suppression on eliquis for anticoagulation normal LVEF 55-60% by echo 04/2019 Hypokalemia- replaced Chronic obstructive pulmonary disease Dementia Alzheimer's type Essential hypertension Recommendations: Continue medical therapy for paroxysmal Afib/flutter. Otherwise, conservative cardiac management. Subjective Date of service: 08/25/19 Interval history: Atrial flutter with a well controlled ventricular rate on telemetry. Objective Vital Signs Temp Pulse Pulse Pulse Resp Resp BP 08/25/19 10:00 95 H 08/25/19 07:05 20 08/25/19 04:06 97.9 F 120 H 18 120/68 08/24/19 23:21 97.7 F 90 18 141/43 08/24/19 22:00 71 71 20 08/24/19 20:54 88 22 08/24/19 20:50 08/24/19 20:00 98 F 78 18 08/24/19 17:33 98.2 F 18 98/28 08/24/19 15:50 96 H 22 08/24/19 11:49 97.6 F 18 138/59 BP Pulse Ox 08/25/19 10:00 08/25/19 07:05 99 08/25/19 04:06 95 08/24/19 23:21 96 08/24/19 22:00 99 08/24/19 20:54 08/24/19 20:50 98 08/24/19 20:00 99/54 97 08/24/19 17:33 08/24/19 15:50 08/24/19 11:49 - Physical Examination General: No Apparent Distress HEENT: Positive: PERRL Cardiac: Positive: irregularly irregular
[2019-08-25] MEDS: APIXABAN 5 MG TAB PO SCH ×2 (11:19→22:06)
[2019-08-25] MEDS: PARoxetine 20 MG TAB PO SCH (11:19)
[2019-08-25] MEDS: dilTIAZem CD 240 MG CAP PO SCH (11:19)
[2019-08-25] MEDS: metFORMIN 500 MG TAB PO SCH ×2 (11:19→22:05)
[2019-08-25] MEDS: PANTOPRAZOLE 40 MG TAB PO SCH (11:20)
--- NOTE | 2019-08-25 11:42 | XRay Report ---
CHEST 1 VIEW INDICATION / CLINICAL INFORMATION: leg swelling, possible chf. COMPARISON: 07/27/2019 FINDINGS: SUPPORT DEVICES: None. HEART / MEDIASTINUM: Slightly enlarged but stable. LUNGS / PLEURA: Few chronically increased markings are seen. No new infiltrate, edema or effusion. No pneumothorax. ADDITIONAL FINDINGS: Old fracture of the proximal right humerus is noted. IMPRESSION: 1. No significant change Signer Name: Angelito Cunningham MD Signed: 08/21/2019 9:04 PM Workstation Name: [id number]
--- NOTE | 2019-08-25 13:37 | Progress Note ---
Assessment and Plan Assessment and plan: Paroxysmal atrial fibrillation with RVR. Continue Cardizem drip per cardiology recommendations. Continue chronic anticoagulation with Eliquis. Acute hypoxic respiratory failure. Etiology secondary to COPD. Continue O2 and BiPAP as clinically indicated. Acute COPD exacerbation. Continue bronchodilators, inhaled steroids and IV steroids. Type 2 diabetes mellitus. Continue Accu-Cheks and sliding scale insulin. ADA diet. Dementia. Continue home medications. Hypokalemia. Replete potassium. Hypertension. Continue antihypertensive medications. 08/23/2019. Patient previously with Cardizem drip for A. fib with RVR which has been discontinued. Patient started back on home regimen of diltiazem CD 240 mg daily and Eliquis 5 mg twice daily. Patient has reverted back to a stable sinus rhythm. EKG is negative for ischemia. Cardiology following. Continue bronchodilators/nebulizers and IV steroids for COPD exacerbation. Pulmonology following. 08/24/2019 Patient with atrial fibrillation with RVR, acute respiratory failure due to COPD exacerbation, diabetes. Less shortness of breath 08/25/2019 Patient with afib with RVR, acute respiratory failure due to COPD exacerbation. She is doing better. Discussed with director case. Will need placement. case therapist recommends order Covid-19 testing History Interval history: Shortness of breath Bilateral leg swelling Hospitalist Physical - Physical exam Narrative exam: GEN: Not in acute distress, obese, lying in bed HEENT: Normocephalic, atraumatic, Neck: supple, No JVD Lungs: Bilateral crackles, rhonchi , heart;S1 and S2 irreg, no murmurs, rubs or gallop Abd:soft, non tender, non distended, normal bowel sounds, Ext: Bilat edema lowere ext, no cyanosis Neuro: Awake,alert,oriented X3,No focal neurological signs - Constitutional Vitals: Temp Pulse Resp BP Pulse Ox 97.9 F 95 H 20 120/68 99 08/25/19 04:06 08/25/19 10:00 08/25/19 07:05 08/25/19 04:06 08/25/19 07:05 General appearance: Present: no acute distress HEART Score - HEART Score Troponin: Troponin T 0.020 ng/mL (0.00-0.029) 08/22/19 02:37 Results - Labs CBC & Chem 7: 08/24/19 09:00 08/24/19 09:00 Labs: Laboratory Last Values WBC 6.3 K/mm3 (4.5-11.0) 08/24/19 09:00 RBC 3.72 M/mm3 (3.65-5.03) 08/24/19 09:00 Hgb 9.5 gm/dl (10.1-14.3) L 08/24/19 09:00 Hct 28.7 % (30.3-42.9) L 08/24/19 09:00 MCV 77 fl (79-97) L 08/24/19 09:00 MCH 26 pg (28-32) L 08/24/19 09:00 MCHC 33 % (30-34) 08/24/19 09:00 RDW 17.3 % (13.2-15.2) H 08/24/19 09:00 Plt Count 215 K/mm3 (140-440) 08/24/19 09:00 Add Manual Diff Complete 08/22/19 02:37 Total Counted 100 08/22/19 02:37 Seg Neutrophils % [employer] Wildlife [employer]ologist 08/22/19 02:37 Seg Neuts % (Manual) 90.0 % (40.0-70.0) H 08/22/19 02:37 Band Neutrophils % 0 % 08/22/19 02:37 Lymphocytes % (Manual) 6.0 % (13.4-35.0) L 08/22/19 02:37 Reactive Lymphs % (Man) 0 % 08/22/19 02:37 Monocytes % (Manual) 4.0 % (0.0-7.3) 08/22/19 02:37 Eosinophils % (Manual) 0 % (0.0-4.3) 08/22/19 02:37 Basophils % (Manual) 0 % (0.0-1.8) 08/22/19 02:37 Metamyelocytes % 0 % 08/22/19 02:37 Myelocytes % 0 % 08/22/19 02:37 Promyelocytes % 0 % 08/22/19 02:37 Blast Cells % 0 % 08/22/19 02:37 Nucleated RBC % Not Reportable 08/22/19 02:37 Seg Neutrophils # Man 6.8 K/mm3 (1.8-7.7) 08/22/19 02:37 Band Neutrophils # 0.0 K/mm3 08/22/19 02:37 Lymphocytes # (Manual) 0.5 K/mm3 (1.2-5.4) L 08/22/19 02:37 Abs React Lymphs (Man) 0.0 K/mm3 08/22/19 02:37 Monocytes # (Manual) 0.3 K/mm3 (0.0-0.8) 08/22/19 02:37 Eosinophils # (Manual) 0.0 K/mm3 (0.0-0.4) 08/22/19 02:37 Basophils # (Manual) 0.0 K/mm3 (0.0-0.1) 08/22/19 02:37 Metamyelocytes # 0.0 K/mm3 08/22/19 02:37 Myelocytes # 0.0 K/mm3 08/22/19 02:37 Promyelocytes # 0.0 K/mm3 08/22/19 02:37 Blast Cells # 0.0 K/mm3 08/22/19 02:37 WBC Morphology Not Reportable 08/22/19 02:37 Hypersegmented Neuts Not Reportable 08/22/19 02:37 Hyposegmented Neuts Not Reportable 08/22/19 02:37 Hypogranular Neuts Not Reportable 08/22/19 02:37 Smudge Cells Not Reportable 08/22/19 02:37 Toxic Granulation Not Reportable 08/22/19 02:37 Toxic Vacuolation Not Reportable 08/22/19 02:37 Dohle Bodies Not Reportable 08/22/19 02:37 Pelger-Huet Anomaly Not Reportable 08/22/19 02:37 Serena Rods Not Reportable 08/22/19 02:37 Platelet Estimate Not Reportable 08/22/19 02:37 Clumped Platelets Not Reportable 08/22/19 02:37 Plt Clumps, EDTA Not Reportable 08/22/19 02:37 Large Platelets Not Reportable 08/22/19 02:37 Giant Platelets Not Reportable 08/22/19 02:37 Platelet Satelliting Not Reportable 08/22/19 02:37 Plt Morphology Comment Not Reportable 08/22/19 02:37 RBC Morphology Not Reportable 08/22/19 02:37 Dimorphic RBCs Not Reportable 08/22/19 02:37 Polychromasia Not Reportable 08/22/19 02:37 Hypochromasia 1+ 08/22/19 02:37 Poikilocytosis Not Reportable 08/22/19 02:37 Anisocytosis 1+ 08/22/19 02:37 Microcytosis Not Reportable 08/22/19 02:37 Macrocytosis Not Reportable 08/22/19 02:37 Spherocytes Not Reportable 08/22/19 02:37 Pappenheimer Bodies Not Reportable 08/22/19 02:37 Sickle Cells Not Reportable 08/22/19 02:37 Target Cells Not Reportable 08/22/19 02:37 Tear Drop Cells Not Reportable 08/22/19 02:37 Ovalocytes Not Reportable 08/22/19 02:37 Helmet Cells Not Reportable 08/22/19 02:37 Cerr[place] Bodies Not Reportable 08/22/19 02:37 [place] Rings Not Reportable 08/22/19 02:37 Lohn Cells Not Reportable 08/22/19 02:37 Bite Cells Not Reportable 08/22/19 02:37 Crenated Cell Not Reportable 08/22/19 02:37 Elliptocytes Not Reportable 08/22/19 02:37 Acanthocytes (Spur) Not Reportable 08/22/19 02:37 Rouleaux Not Reportable 08/22/19 02:37 Hemoglobin C Crystals Not Reportable 08/22/19 02:37 Schistocytes Not Reportable 08/22/19 02:37 Malaria parasites Not Reportable 08/22/19 02:37 Marco Bodies Not Reportable 08/22/19 02:37 Hem Pathologist Commnt No 08/22/19 02:37 PT 19.7 Sec. (12.2-14.9) H 08/22/19 02:37 INR 1.67 (0.87-1.13) H 08/22/19 02:37 APTT 38.6 Sec. (24.2-36.6) H 08/21/19 20:41 Sodium 138 mmol/L (137-145) 08/24/19 09:00 Potassium 3.7 mmol/L (3.6-5.0) D 08/24/19 09:00 Chloride 93.6 mmol/L (98-107) L 08/24/19 09:00 Carbon Dioxide 33 mmol/L (22-30) H 08/24/19 09:00 Anion Gap 15 mmol/L 08/24/19 09:00 BUN 16 mg/dL (7-17) 08/24/19 09:00 Creatinine 0.7 mg/dL (0.7-1.2) 08/24/19 09:00 Estimated GFR > 60 ml/min 08/24/19 09:00 BUN/Creatinine Ratio 23 % 08/24/19 09:00 Glucose 174 mg/dL (65-100) H 08/24/19 09:00 POC Glucose 133 (70-105) H 08/25/19 11:39 Calcium 8.9 mg/dL (8.4-10.2) 08/24/19 09:00 Magnesium 1.50 mg/dL (1.7-2.3) L 08/21/19 20:47 Total Bilirubin 1.20 mg/dL (0.1-1.2) 08/21/19 20:41 AST 45 units/L (5-40) H 08/21/19 20:41 ALT 17 units/L (7-56) 08/21/19 20:41 Alkaline Phosphatase 77 units/L (35-129) 08/21/19 20:41 Troponin T 0.020 ng/mL (0.00-0.029) 08/22/19 02:37 NT-Pro-B Natriuret Pep 1347 pg/mL (0-900) H 08/21/19 20:41 Total Protein 5.8 g/dL (6.3-8.2) L 08/21/19 20:41 Albumin 2.6 g/dL (3.9-5) L 08/21/19 20:41 Albumin/Globulin Ratio 0.8 % 08/21/19 20:41 Triglycerides 81 mg/dL (2-149) 08/21/19 20:47 Cholesterol 112 mg/dL (50-199) 08/21/19 20:47 LDL Cholesterol Direct 48 mg/dL (50-130) L 08/21/19 20:47 HDL Cholesterol 64 mg/dL (40-59) H 08/21/19 20:47 Cholesterol/HDL Ratio 1.75 % 08/21/19 20:47 Barreto/IV: Voiding Method External Female Catheter IV Catheter Type [Left Forearm INT / Saline Lock ] Active Medications - Current Medications Current Medications: Generic Name Dose Route Start Last Admin Trade Name Freq PRN Reason Stop Dose Admin Albuterol 2.5 mg 08/22/19 09:22 Proventil IH Q4HRT PRN Shortness Of Breath Albuterol/Ipratropium 1 ampul 08/22/19 21:00 08/25/19 10:45 Duoneb *Not For Prn Use* IH 1 ampul TIDRT BENNY Administration Apixaban 5 mg 08/22/19 10:00 08/25/19 11:19 Eliquis PO 5 mg Q12HR BENNY Administration Protocol Arformoterol Tartrate 15 mcg 08/22/19 20:00 08/25/19 10:45 Brovana Nebu IH 15 mcg Q12HRT BENNY Administration Benzonatate 100 mg 08/22/19 09:20 08/22/19 21:26 Tessalon Perles PO 100 mg Q8HR PRN Administration Cough Budesonide 0.5 mg 08/22/19 20:00 08/25/19 10:45 Pulmicort IH 0.5 mg Q12HRT BENNY Administration Dextrose 0 ml 08/21/19 22:17 D50w (25gm) Syringe IV Q30MIN PRN Hypoglycemia Protocol Diltiazem HCl 240 mg 08/22/19 10:00 08/25/19 11:19 Cardizem Cd PO 240 mg QDAY BENNY Administration Insulin Human Lispro 0 unit 08/22/19 07:30 08/25/19 11:36 Humalog SUB-Q Not Given ACHS BENNY Protocol Magnesium Hydroxide 30 ml 08/21/19 22:17 Milk Of Magnesia PO Q4H PRN Constipation Metformin HCl 500 mg 08/22/19 10:00 08/25/19 11:19 Glucophage PO 500 mg BID BENNY Administration Montelukast Sodium 10 mg 08/22/19 18:00 08/24/19 18:20 Singulair PO 10 mg QPM BENNY Administration Morphine Sulfate 2 mg 08/21/19 22:17 08/22/19 15:55 Morphine IV 2 mg Q4H PRN Administration Pain, Moderate (4-6) Ondansetron HCl 4 mg 08/21/19 22:17 Zofran IV Q8H PRN Nausea And Vomiting Pantoprazole Sodium 40 mg 08/22/19 10:00 08/25/19 11:20 Protonix PO Not Given QDAY BENNY Paroxetine HCl 20 mg 08/22/19 10:00 08/25/19 11:19 Paxil PO 20 mg DAILY BENNY Administration Sodium Chloride 10 ml 08/22/19 10:00 08/25/19 11:19 Sodium Chloride Flush Syringe 10 Ml IV 10 ml BID BENNY Administration Sodium Chloride 10 ml 08/21/19 22:17 08/23/19 06:17 Sodium Chloride Flush Syringe 10 Ml IV 10 ml PRN PRN Administration LINE FLUSH Nutrition/Malnutrition Assess - Dietary Evaluation Nutrition/Malnutrition Findings: Nutrition Notes Start: 08/22/19 10:42 Freq: Status: Active Protocol: Document 08/23/19 15:00 LM (Rec: 08/23/19 15:03 LM [id number]) Nutrition Notes Initial or Follow up Brief Note Current Diagnosis COPD,Diabetes,Hypertension Other Pertinent Diagnosis LE edema, afib with RVR, Dementia Current Diet Cardiac/Consistent CHO Labs/Tests Na 134 K 2.9 Cr 0.6 BG 163 Pertinent Medications Solumedrol Metformin Height 5 ft 2 in Weight 56.3 kg [place] Body Weight (kg) 50.00 BMI 22.6 Weight change and time frame wt change noted Subjective/Other Information Unable to reach pt. Per RN notes pt is confused. Nutrition Intervention Follow-Up By: 08/25/19 Additional Comments F/U: intakes, accurate wt
[2019-08-25] MEDS: MORPHINE 2 MG/1 ML INJ IV PRN (14:41)
[2019-08-25] MEDS: MONTELUKAST 10 MG TAB PO SCH (17:25)
[2019-08-26] MEDS: BUDESONIDE 0.5 MG/2 ML NEBU IH SCH (08:15)
[2019-08-26] MEDS: ARFORMOTEROL 15 MCG/2 ML NEBU IH SCH (08:15)
[2019-08-26] MEDS: IPRATROPIUM/ALBUTEROL SULFATE 3 ML AMPUL.NEB IH SCH ×2 (08:15→14:28)
[2019-08-26] MEDS: dilTIAZem CD 240 MG CAP PO SCH (10:07)
[2019-08-26] MEDS: PANTOPRAZOLE 40 MG TAB PO SCH (10:07)
[2019-08-26] MEDS: metFORMIN 500 MG TAB PO SCH (10:07)
[2019-08-26] MEDS: APIXABAN 5 MG TAB PO SCH (10:07)
[2019-08-26] MEDS: PARoxetine 20 MG TAB PO SCH (10:07)
--- NOTE | 2019-08-26 10:59 | Progress Note ---
Assessment and Plan Paroxysmal atrial fibrillation/flutter/MAT reverted to sinus rhythm on diltiazem for suppression on eliquis for anticoagulation normal LVEF 55-60% by echo 04/2019 Hypokalemia- replaced Chronic obstructive pulmonary disease Dementia Alzheimer's type Essential hypertension Recommendations: Continue medical therapy for paroxysmal Afib/flutter. Otherwise, conservative cardiac management. Subjective Date of service: 08/26/19 Interval history: Awaits placement. Stable sinus rhythm on telemetry. Objective Vital Signs Temp Pulse Pulse Resp Resp BP Pulse Ox 08/26/19 10:07 97 H 114/86 08/26/19 07:51 98.5 F 88 20 130/58 96 08/26/19 03:28 99.1 F 100 H 19 145/61 90 08/26/19 00:26 98.3 F 101 H 16 141/54 90 08/25/19 22:00 68 20 96 08/25/19 21:48 94 H 20 96 08/25/19 19:39 97.4 F L 18 114/41 08/25/19 15:30 96 H 20 08/25/19 11:34 98.0 F 18 151/70 - Physical Examination General: No Apparent Distress HEENT: Positive: PERRL Neck: Positive: neck supple Cardiac: Positive: Reg Rate and Rhythm
[2019-08-26] MEDS: INSULIN LISPRO 100 UNIT/ML SUB-Q SCH ×2 (12:35→17:12)
--- NOTE | 2019-08-26 13:32 | Progress Note ---
Assessment and Plan 79 y/o female with known COPD and chronic respiratory failure, admitted with Afib with RVR. 1. Stable on baseline flow of oxygen 2. Stopped steroids 3. Continue BID pulmicort and brovana 4. Rate control per cardiology 5. Will continue to follow Subjective Date of service: 08/26/19 Interval history: Pulm status, unchanged. Awaiting placement Objective Vital Signs - 12hr 08/26/19 08/26/19 08/26/19 03:28 07:51 10:07 Temperature 99.1 F 98.5 F Pulse Rate 100 H 88 97 H Respiratory 19 20 Rate Blood Pressure 145/61 130/58 114/86 O2 Sat by Pulse 90 96 Oximetry Constitutional: no acute distress, alert Eyes: non-icteric ENT: oropharynx moist Neck: supple Ascultation: Bilateral: clear CBC and BMP: 08/24/19 09:00 08/24/19 09:00 ABG, PT/INR, D-dimer: PT/INR, D-dimer PT 19.7 Sec. (12.2-14.9) H 08/22/19 02:37 INR 1.67 (0.87-1.13) H 08/22/19 02:37 Abnormal lab findings: Abnormal Labs 08/21/19 08/21/19 08/21/19 20:41 20:41 20:41 WBC 11.1 H Hgb Hct MCV 78 L MCH 25 L RDW 16.4 H Seg Neuts % (Manual) 83.0 H Lymphocytes % (Manual) 10.0 L Seg Neutrophils # Man 9.2 H Lymphocytes # (Manual) 1.1 L PT 19.0 H INR 1.59 H APTT 38.6 H Sodium 131 L Potassium 3.2 L Chloride 88.7 L Carbon Dioxide BUN 6 L Creatinine 0.5 L Glucose 109 H POC Glucose Calcium 8.3 L Magnesium AST 45 H Troponin T NT-Pro-B Natriuret Pep 1347 H Total Protein 5.8 L Albumin 2.6 L LDL Cholesterol Direct HDL Cholesterol 08/21/19 08/21/19 08/22/19 20:47 20:47 02:37 WBC Hgb Hct MCV 78 L MCH 25 L RDW 16.5 H Seg Neuts % (Manual) 90.0 H Lymphocytes % (Manual) 6.0 L Seg Neutrophils # Man Lymphocytes # (Manual) 0.5 L PT INR APTT Sodium Potassium Chloride Carbon Dioxide BUN Creatinine Glucose POC Glucose Calcium Magnesium 1.50 L AST Troponin T 0.030 H NT-Pro-B Natriuret Pep Total Protein Albumin LDL Cholesterol Direct 48 L HDL Cholesterol 64 H 08/22/19 08/22/19 08/22/19 02:37 02:37 08:48 WBC Hgb Hct MCV MCH RDW Seg Neuts % (Manual) Lymphocytes % (Manual) Seg Neutrophils # Man Lymphocytes # (Manual) PT 19.7 H INR 1.67 H APTT Sodium 134 L Potassium 2.9 L* Chloride 90.2 L Carbon Dioxide 31 H BUN Creatinine 0.6 L Glucose 163 H POC Glucose 182 H Calcium Magnesium AST Troponin T NT-Pro-B Natriuret Pep Total Protein Albumin LDL Cholesterol Direct HDL Cholesterol 08/22/19 08/22/19 08/23/19 19:10 21:34 08:09 WBC Hgb Hct MCV MCH RDW Seg Neuts % (Manual) Lymphocytes % (Manual) Seg Neutrophils # Man Lymphocytes # (Manual) PT INR APTT Sodium Potassium Chloride Carbon Dioxide BUN Creatinine Glucose POC Glucose 178 H 151 H 207 H Calcium Magnesium AST Troponin T NT-Pro-B Natriuret Pep Total Protein Albumin LDL Cholesterol Direct HDL Cholesterol 08/23/19 08/23/19 08/23/19 12:22 16:34 21:18 WBC Hgb Hct MCV MCH RDW Seg Neuts % (Manual) Lymphocytes % (Manual) Seg Neutrophils # Man Lymphocytes # (Manual) PT INR APTT Sodium Potassium Chloride Carbon Dioxide BUN Creatinine Glucose POC Glucose 125 H 136 H 137 H Calcium Magnesium AST Troponin T NT-Pro-B Natriuret Pep Total Protein Albumin LDL Cholesterol Direct HDL Cholesterol 08/24/19 08/24/19 08/24/19 08:21 09:00 09:00 WBC Hgb 9.5 L Hct 28.7 L MCV 77 L MCH 26 L RDW 17.3 H Seg Neuts % (Manual) Lymphocytes % (Manual) Seg Neutrophils # Man Lymphocytes # (Manual) PT INR APTT Sodium Potassium Chloride 93.6 L Carbon Dioxide 33 H BUN Creatinine Glucose 174 H POC Glucose 184 H Calcium Magnesium AST Troponin T NT-Pro-B Natriuret Pep Total Protein Albumin LDL Cholesterol Direct HDL Cholesterol 08/24/19 08/24/19 08/24/19 11:59 17:29 21:00 WBC Hgb Hct MCV MCH RDW Seg Neuts % (Manual) Lymphocytes % (Manual) Seg Neutrophils # Man Lymphocytes # (Manual) PT INR APTT Sodium Potassium Chloride Carbon Dioxide BUN Creatinine Glucose POC Glucose 188 H 134 H 134 H Calcium Magnesium AST Troponin T NT-Pro-B Natriuret Pep Total Protein Albumin LDL Cholesterol Direct HDL Cholesterol 08/25/19 08/25/19 08/25/19 08:55 11:39 17:34 WBC Hgb Hct MCV MCH RDW Seg Neuts % (Manual) Lymphocytes % (Manual) Seg Neutrophils # Man Lymphocytes # (Manual) PT INR APTT Sodium Potassium Chloride Carbon Dioxide BUN Creatinine Glucose POC Glucose 166 H 133 H 111 H Calcium Magnesium AST Troponin T NT-Pro-B Natriuret Pep Total Protein Albumin LDL Cholesterol Direct HDL Cholesterol 08/25/19 21:38 WBC Hgb Hct MCV MCH RDW Seg Neuts % (Manual) Lymphocytes % (Manual) Seg Neutrophils # Man Lymphocytes # (Manual) PT INR APTT Sodium Potassium Chloride Carbon Dioxide BUN Creatinine Glucose POC Glucose 107 H Calcium Magnesium AST Troponin T NT-Pro-B Natriuret Pep Total Protein Albumin LDL Cholesterol Direct HDL Cholesterol
--- NOTE | 2019-08-26 13:34 | Consultation ---
PULMONARY AND CRITICAL CARE CONSULTATION CONSULTING PHYSICIAN: Dr. Adelso Choudhary. REASON FOR CONSULTATION: Critical care management, atrial fibrillation with rapid ventricular response, COPD. CHIEF COMPLAINT AND HISTORY OF PRESENT ILLNESS: As follows: The patient is a 79-year-old female with past medical history significant amongst other things for a diagnosis of home oxygen dependent COPD, 3 liters nasal cannula baseline as well as a history of dementia and atrial fibrillation, paroxysmal, who presented to the Emergency Room with complaining of lower extremity swelling, shortness of breath, dyspnea on exertion, and very poor historian. In the Emergency Room, she was found to be in atrial fibrillation with rapid ventricular response with a rate of about 160. The patient was on chronic anticoagulation at home. She also had elevated troponins. She required a Cardizem drip and bilevel positive air pressure ventilation therapy. ICU admission was requested for admission of continuation of the Cardizem drip as well as BiPAP support. When I stopped by to see her in the Emergency Room, she was actually doing better. She had been weaned off the Cardizem drip. She was now on back to supplemental oxygen about 4 liters nasal cannula. She has a very very pleasant dementia, but could not really tell me anything, did not know why she was in the Emergency Room. She did deny chest pains. Since she has been in the ER, no vomiting, no overt aspiration. When asked about tobacco use or abuse, she denied any history whatsoever of stop smoking cigarettes. This really is as much of the history of presentation as I have. PAST MEDICAL HISTORY: Paroxysmal atrial fibrillation, arthritis, COPD, diabetes, hypertension. She is obese. PAST SURGICAL HISTORY: She has had a cholecystectomy and some type of right breast surgery. MEDICATIONS: Medications that she was on at the time I stopped by to see were reviewed. Pertinent medications included the following: Albuterol 2.5 mg nebulized q. 4 hours p.r.n. shortness of breath, DuoNeb nebulizer treatments were scheduled q. 8 hours, Eliquis 5 mg p.o. q. 12 hours, Brovana 15 mcg inhaled q. 12 hours, Pulmicort 0.5 mg nebulized q. 12 hours, Cardizem drip had just been stopped, insulin via sliding scale, metformin 500 mg p.o. b.i.d., Solu-Medrol 40 mg IV q. 8 hours, Singulair 10 mg p.o. at bedtime, morphine 2 mg IV q. 4 hours p.r.n. moderate pain, Protonix 40 mg p.o. daily, Zofran 4 mg IV q. 8 hours p.r.n. nausea and vomiting and Paxil 20 mg p.o. daily. ALLERGIES: To PROMETHAZINE, nature of this allergy is unknown. DIET: Obese lady, acute weight loss or gain history is unknown. FAMILY AND SOCIAL HISTORY: Apparently lives in the community. Denies alcohol, tobacco, or illicit drug use or abuse. Family history is otherwise unknown. REVIEW OF SYSTEMS: Mostly unobtainable secondary to the patient's medical and mental condition. Since she has been here, no gross hematochezia or melena, no gross hematuria, no hematemesis, no hemoptysis, no witnessed seizures. No loss of consciousness. Complete 13-system review of systems was obtained. Pertinent positives and/or negatives as in body of history above, otherwise noncontributory. PHYSICAL EXAMINATION: VITAL SIGNS: At presentation in the Emergency Room, she was afebrile, temperature 98.0 degrees Fahrenheit, pulse was 158, respiratory rate was 19, blood pressure 145/107, O2 sats were 99%, inspired oxygen concentration at that time was not recorded. When I stopped by to see her, O2 sats were 97% that was on 4 liters of nasal cannula. GENERAL: She is an elderly looking obese female, normocephalic, atraumatic, talking to me with slightly interrupted sentences at times with mildly increased respiratory effort at rest. HEAD, EYES, EARS, NOSE AND THROAT: She was anicteric, no conjunctival erythema. Oropharynx was moist. Mallampati #3. No gross jugular venous distention, no thyromegaly. Grossly, there were no palpable lymph nodes in the supraclavicular or submandibular lymph node chains. Her neck was supple. LUNGS: Auscultation of both lung snell significant for diminished bilateral breath sounds, prolonged expiratory phase and faint inspiratory rhonchi or rales at the base. HEART: Heart sounds 1 and 2 were heard, irregularly irregular at the time of my evaluation without overt rubs or murmurs. ABDOMEN: Soft, full, protuberant. Bowel sounds are positive, nontender, no palpable hepatosplenomegaly. EXTREMITIES: Without overt digital clubbing or cyanosis. She has 2+ pitting edema to the lower legs as well as 2+ pulses. NEUROLOGIC: Pupils were equal, round, about 3 mm, reactive to light. Extraocular muscle movements were intact. She moves all 4 extremities spontaneously. SKIN: Normal turgor without overt cellulitis or rash in the areas examined. PSYCHIATRIC: Her mood was normal. Affect was appropriate. She had poor insight and judgment. LABORATORY DATA: From my review are as follows: Admission white cell count 11,100, hemoglobin 11.0, hematocrit 34.1, platelet count 271. No band forms reported. INR was 1.59. Serum sodium 131, potassium 3.2, chloride 89, bicarbonate 30, BUN 6, creatinine 0.5, glucose 109. Magnesium was 1.5. Liver function test: AST was up at 45. Albumin was low at 2.6, otherwise essentially within normal limits. BNP was elevated at 1387. LDL cholesterol was 48. No microbiology studies. A chest x-ray was reviewed, which showed hyperinflation, increased interstitial markings consistent with COPD/chronic COPD, but also ____ possible of mild interstitial edema. There is gross cardiomegaly, no gross pneumothorax, no gross bony fracture. ASSESSMENT: 1. Acute chronic obstructive pulmonary disease exacerbation. 2. Atrial fibrillation with rapid ventricular response. 3. Possible congestive heart failure. 4. Obesity. 5. History of dementia. 6. Diabetes type 2. 7. Mild leukocytosis. 8. Mild hypokalemia. 9. Hypomagnesemia. 10. Dementia. PLAN: She is now off the Cardizem drip and can be transitioned to the telemetry floor. Intensive Care Unit admission will be downgraded. Supplemental oxygen will be continued to keep sats greater than or equal to over 90%. We will continue long-acting and short-acting bronchodilators as well as inhaled corticosteroids. In light of the possible congestive heart failure, we will quickly taper off the systemic steroids. Cardiology evaluation has been requested. She may benefit from some diuresis. I would defer to them. Magnesium and potassium are being corrected. She will benefit from bilevel positive air pressure ventilation therapy scheduled at bedtime with p.r.n. daytime use. An outpatient Pulmonary/Sleep Clinic evaluation may also be in order. She is appropriately on GI prophylaxis. She is also on full anticoagulation. Flu and pneumonia vaccination will be addressed per protocol. Thank you very much for the consult. We will follow along and make further recommendations as picture progresses/becomes clearer. JOB# [id number] JULIENNE/NTS
--- NOTE | 2019-08-26 15:34 | Progress Note ---
History Interval history: Shortness of breath Bilateral leg swelling Hospitalist Physical - Constitutional Vitals: Temp Pulse Resp BP Pulse Ox 98.5 F 117 H 20 150/73 95 08/26/19 07:51 08/26/19 12:19 08/26/19 12:19 08/26/19 12:19 08/26/19 12:19 General appearance: Present: no acute distress HEART Score - HEART Score Troponin: Troponin T 0.020 ng/mL (0.00-0.029) 08/22/19 02:37 Results - Labs CBC & Chem 7: 08/24/19 09:00 08/24/19 09:00 Labs: Laboratory Last Values WBC 6.3 K/mm3 (4.5-11.0) 08/24/19 09:00 RBC 3.72 M/mm3 (3.65-5.03) 08/24/19 09:00 Hgb 9.5 gm/dl (10.1-14.3) L 08/24/19 09:00 Hct 28.7 % (30.3-42.9) L 08/24/19 09:00 MCV 77 fl (79-97) L 08/24/19 09:00 MCH 26 pg (28-32) L 08/24/19 09:00 MCHC 33 % (30-34) 08/24/19 09:00 RDW 17.3 % (13.2-15.2) H 08/24/19 09:00 Plt Count 215 K/mm3 (140-440) 08/24/19 09:00 Add Manual Diff Complete 08/22/19 02:37 Total Counted 100 08/22/19 02:37 Seg Neutrophils % Navigating Officer 08/22/19 02:37 Seg Neuts % (Manual) 90.0 % (40.0-70.0) H 08/22/19 02:37 Band Neutrophils % 0 % 08/22/19 02:37 Lymphocytes % (Manual) 6.0 % (13.4-35.0) L 08/22/19 02:37 Reactive Lymphs % (Man) 0 % 08/22/19 02:37 Monocytes % (Manual) 4.0 % (0.0-7.3) 08/22/19 02:37 Eosinophils % (Manual) 0 % (0.0-4.3) 08/22/19 02:37 Basophils % (Manual) 0 % (0.0-1.8) 08/22/19 02:37 Metamyelocytes % 0 % 08/22/19 02:37 Myelocytes % 0 % 08/22/19 02:37 Promyelocytes % 0 % 08/22/19 02:37 Blast Cells % 0 % 08/22/19 02:37 Nucleated RBC % Not Reportable 08/22/19 02:37 Seg Neutrophils # Man 6.8 K/mm3 (1.8-7.7) 08/22/19 02:37 Band Neutrophils # 0.0 K/mm3 08/22/19 02:37 Lymphocytes # (Manual) 0.5 K/mm3 (1.2-5.4) L 08/22/19 02:37 Abs React Lymphs (Man) 0.0 K/mm3 08/22/19 02:37 Monocytes # (Manual) 0.3 K/mm3 (0.0-0.8) 08/22/19 02:37 Eosinophils # (Manual) 0.0 K/mm3 (0.0-0.4) 08/22/19 02:37 Basophils # (Manual) 0.0 K/mm3 (0.0-0.1) 08/22/19 02:37 Metamyelocytes # 0.0 K/mm3 08/22/19 02:37 Myelocytes # 0.0 K/mm3 08/22/19 02:37 Promyelocytes # 0.0 K/mm3 08/22/19 02:37 Blast Cells # 0.0 K/mm3 08/22/19 02:37 WBC Morphology Not Reportable 08/22/19 02:37 Hypersegmented Neuts Not Reportable 08/22/19 02:37 Hyposegmented Neuts Not Reportable 08/22/19 02:37 Hypogranular Neuts Not Reportable 08/22/19 02:37 Smudge Cells Not Reportable 08/22/19 02:37 Toxic Granulation Not Reportable 08/22/19 02:37 Toxic Vacuolation Not Reportable 08/22/19 02:37 Dohle Bodies Not Reportable 08/22/19 02:37 Pelger-Huet Anomaly Not Reportable 08/22/19 02:37 Serena Rods Not Reportable 08/22/19 02:37 Platelet Estimate Not Reportable 08/22/19 02:37 Clumped Platelets Not Reportable 08/22/19 02:37 Plt Clumps, EDTA Not Reportable 08/22/19 02:37 Large Platelets Not Reportable 08/22/19 02:37 Giant Platelets Not Reportable 08/22/19 02:37 Platelet Satelliting Not Reportable 08/22/19 02:37 Plt Morphology Comment Not Reportable 08/22/19 02:37 RBC Morphology Not Reportable 08/22/19 02:37 Dimorphic RBCs Not Reportable 08/22/19 02:37 Polychromasia Not Reportable 08/22/19 02:37 Hypochromasia 1+ 08/22/19 02:37 Poikilocytosis Not Reportable 08/22/19 02:37 Anisocytosis 1+ 08/22/19 02:37 Microcytosis Not Reportable 08/22/19 02:37 Macrocytosis Not Reportable 08/22/19 02:37 Spherocytes Not Reportable 08/22/19 02:37 Pappenheimer Bodies Not Reportable 08/22/19 02:37 Sickle Cells Not Reportable 08/22/19 02:37 Target Cells Not Reportable 08/22/19 02:37 Tear Drop Cells Not Reportable 08/22/19 02:37 Ovalocytes Not Reportable 08/22/19 02:37 Helmet Cells Not Reportable 08/22/19 02:37 [place] Bodies Not Reportable 08/22/19 02:37 [place] Rings Not Reportable 08/22/19 02:37 Elaina Cells Not Reportable 08/22/19 02:37 Bite Cells Not Reportable 08/22/19 02:37 Crenated Cell Not Reportable 08/22/19 02:37 Elliptocytes Not Reportable 08/22/19 02:37 Acanthocytes (Spur) Not Reportable 08/22/19 02:37 Rouleaux Not Reportable 08/22/19 02:37 Hemoglobin C Crystals Not Reportable 08/22/19 02:37 Schistocytes Not Reportable 08/22/19 02:37 Malaria parasites Not Reportable 08/22/19 02:37 Marco Bodies Not Reportable 08/22/19 02:37 Hem Pathologist Commnt No 08/22/19 02:37 PT 19.7 Sec. (12.2-14.9) H 08/22/19 02:37 INR 1.67 (0.87-1.13) H 08/22/19 02:37 APTT 38.6 Sec. (24.2-36.6) H 08/21/19 20:41 Sodium 138 mmol/L (137-145) 08/24/19 09:00 Potassium 3.7 mmol/L (3.6-5.0) D 08/24/19 09:00 Chloride 93.6 mmol/L (98-107) L 08/24/19 09:00 Carbon Dioxide 33 mmol/L (22-30) H 08/24/19 09:00 Anion Gap 15 mmol/L 08/24/19 09:00 BUN 16 mg/dL (7-17) 08/24/19 09:00 Creatinine 0.7 mg/dL (0.7-1.2) 08/24/19 09:00 Estimated GFR > 60 ml/min 08/24/19 09:00 BUN/Creatinine Ratio 23 % 08/24/19 09:00 Glucose 174 mg/dL (65-100) H 08/24/19 09:00 POC Glucose 130 (70-105) H 08/26/19 12:27 Calcium 8.9 mg/dL (8.4-10.2) 08/24/19 09:00 Magnesium 1.50 mg/dL (1.7-2.3) L 08/21/19 20:47 Total Bilirubin 1.20 mg/dL (0.1-1.2) 08/21/19 20:41 AST 45 units/L (5-40) H 08/21/19 20:41 ALT 17 units/L (7-56) 08/21/19 20:41 Alkaline Phosphatase 77 units/L (35-129) 08/21/19 20:41 Troponin T 0.020 ng/mL (0.00-0.029) 08/22/19 02:37 NT-Pro-B Natriuret Pep 1347 pg/mL (0-900) H 08/21/19 20:41 Total Protein 5.8 g/dL (6.3-8.2) L 08/21/19 20:41 Albumin 2.6 g/dL (3.9-5) L 08/21/19 20:41 Albumin/Globulin Ratio 0.8 % 08/21/19 20:41 Triglycerides 81 mg/dL (2-149) 08/21/19 20:47 Cholesterol 112 mg/dL (50-199) 08/21/19 20:47 LDL Cholesterol Direct 48 mg/dL (50-130) L 08/21/19 20:47 HDL Cholesterol 64 mg/dL (40-59) H 08/21/19 20:47 Cholesterol/HDL Ratio 1.75 % 08/21/19 20:47 Coronavirus (PCR) Negative (Negative) 08/25/19 Unknown [place]/IV: Voiding Method External Female Catheter IV Catheter Type [Left Forearm INT / Saline Lock ] Active Medications - Current Medications Current Medications: Generic Name Dose Route Start Last Admin Trade Name Freq PRN Reason Stop Dose Admin Albuterol 2.5 mg 08/22/19 09:22 Proventil IH Q4HRT PRN Shortness Of Breath Albuterol/Ipratropium 1 ampul 08/22/19 21:00 08/26/19 14:28 Duoneb *Not For Prn Use* IH 1 ampul TIDRT BENNY Administration Apixaban 5 mg 08/22/19 10:00 08/26/19 10:07 Eliquis PO 5 mg Q12HR BENNY Administration Protocol Arformoterol Tartrate 15 mcg 08/22/19 20:00 08/26/19 08:15 Brovana Nebu IH 15 mcg Q12HRT BENNY Administration Benzonatate 100 mg 08/22/19 09:20 08/22/19 21:26 Tessalon Perles PO 100 mg Q8HR PRN Administration Cough Budesonide 0.5 mg 08/22/19 20:00 08/26/19 08:15 Pulmicort IH 0.5 mg Q12HRT BENNY Administration Dextrose 0 ml 08/21/19 22:17 D50w (25gm) Syringe IV Q30MIN PRN Hypoglycemia Protocol Diltiazem HCl 240 mg 08/22/19 10:00 08/26/19 10:07 Cardizem Cd PO 240 mg QDAY BENNY Administration Insulin Human Lispro 0 unit 08/22/19 07:30 08/26/19 12:35 Humalog SUB-Q Not Given ACHS BENNY Protocol Magnesium Hydroxide 30 ml 08/21/19 22:17 Milk Of Magnesia PO Q4H PRN Constipation Metformin HCl 500 mg 08/22/19 10:00 08/26/19 10:07 Glucophage PO 500 mg BID BENNY Administration Montelukast Sodium 10 mg 08/22/19 18:00 08/25/19 17:25 Singulair PO 10 mg QPM BENNY Administration Morphine Sulfate 2 mg 08/21/19 22:17 08/25/19 14:41 Morphine IV 2 mg Q4H PRN Administration Pain, Moderate (4-6) Ondansetron HCl 4 mg 08/21/19 22:17 Zofran IV Q8H PRN Nausea And Vomiting Pantoprazole Sodium 40 mg 08/22/19 10:00 08/26/19 10:07 Protonix PO 40 mg QDAY BENNY Administration Paroxetine HCl 20 mg 08/22/19 10:00 08/26/19 10:07 Paxil PO 20 mg DAILY BENNY Administration Sodium Chloride 10 ml 08/22/19 10:00 08/26/19 10:12 Sodium Chloride Flush Syringe 10 Ml IV 10 ml BID BENNY Administration Sodium Chloride 10 ml 08/21/19 22:17 08/23/19 06:17 Sodium Chloride Flush Syringe 10 Ml IV 10 ml PRN PRN Administration LINE FLUSH Nutrition/Malnutrition Assess - Dietary Evaluation Nutrition/Malnutrition Findings: Nutrition Notes Start: 08/22/19 10:42 Freq: Status: Active Protocol: Document 08/26/19 13:44 LM (Rec: 08/26/19 13:51 LM [email or web address]) Nutrition Notes Initial or Follow up Reassessment Current Diagnosis COPD,Diabetes,Hypertension Other Pertinent Diagnosis LE edema, afib with RVR, Dementia Current Diet Cardiac/Consistent CHO Labs/Tests Reviewed Pertinent Medications Reviewed Height 5 ft 2 in Weight 56.3 kg [place] Body Weight (kg) 50.00 BMI 22.6 Subjective/Other Information Per RN pt did not eat her lunch but was sipping a Nepro. Burn Absent Trauma Absent Minimum of two criteria No #2 Nutrition Diagnosis Inadequate oral intake Etiology dementia, confusion As Evidenced by Signs and Symptoms pt not eating lunch Is patient on ventilator? No Is Patient Ambulatory and/or Out of Bed No REE-([facility] Jew[facility]-confined to bed) [phone] Calculation Used for Recommendations [facility] Additional Notes Pro needs 1-1.2g/k-67g/ day Fluid needs 1ml/kcal Nutrition Intervention Change Diet Order: Continue current diet order Add Supplement/Snack (indicate name/kcal Glucerna BID /protein ) Provides kCal: 440 Provides Protein (gm) 20 Goal #1 PO intakes to meet at least 75 % energy and pro needs Follow-Up By: 08/31/19 Additional Comments F/U for for PO/ONS intakes
--- NOTE | 2019-08-26 15:40 | Discharge Summary ---
Providers - Providers Date of Admission: 08/21/19 21:51 Date of discharge: 08/26/19 Attending physician: JAXSON IZQUIERDO 08/21/19 21:39 Consult to Physician [CONS] Urgent Comment: Consulting Provider: ARSLAN HELLER Physician Instructions: Reason For Exam: mild trop elevation, afib/rvr 08/21/19 22:17 Consult to Dietitian/Nutrition [CONS] Routine Physician Instructions: Reason For Exam: Reason for Consult: Diet education Consult to Dietitian/Nutrition [CONS] Routine Physician Instructions: Reason For Exam: Reason for Consult: Diet education 08/22/19 08:10 Consult to Physician [CONS] Urgent Comment: Consulting Provider: ED CHEN Physician Instructions: Reason For Exam: CRITICAL CARE and pulmonary management 08/23/19 07:24 Consult to Wound/ET Nurse [CONS] Routine Reason For Exam: wound eval 08/23/19 17:39 Consult to Physician [CONS] Routine Comment: Consulting Provider: MELLY POSADA Physician Instructions: Reason For Exam: AECOPD, known to your group Primary care physician: FINANCIAL SYSTEMS ANALYST Hospitalization Condition: Fair Hospital course: Patient is 79-year-old female with known history of dementia, COPD on 3 L of oxygen at home, diabetes mellitus and paroxysmal atrial fibrillation presented to the emergency room with complaint of lower extremity swelling. She also complained of shortness of breath upon arrival in the emergency room. She could not give a very good history as she has dementia. She denies any chest pain, no nausea vomiting and no diarrhea. No headache or dizziness. Upon arrival in the emergency room she was found to be in atrial fibrillation with RVR with a rate of about 160. She has been on Eliquis for anticoagulation for A. fib. Work-up revealed elevated troponin, and hypokalemia. She was started on Cardizem drip in the emergency room, admitted. Patient was evaluated by cardiology and Pulmonology. She improved, and eventually discharged to [facility] on 08/26/19 Paroxysmal atrial fibrillation with RVR. Treated with cardizem drip, then oral cardizem,, Eliquis. Acute hypoxic respiratory failure. Etiology secondary to COPD. Continue O2 and BiPAP as clinically indicated. Acute COPD exacerbation. Treated with bronchodilators, inhaled steroids and IV steroids. Type 2 diabetes mellitus. Accu-Cheks and sliding scale insulin. ADA diet. Dementia. Continue home medications. Hypokalemia. Replete potassium. Hypertension. Continue antihypertensive medications. 08/23/2019. Patient previously with Cardizem drip for A. fib with RVR which has been discontinued. Patient started back on home regimen of diltiazem CD 240 mg daily and Eliquis 5 mg twice daily. Patient has reverted back to a stable sinus rhythm. EKG is negative for ischemia. Cardiology following. Continue bronchodilators/nebulizers and IV steroids for COPD exacerbation. Pulmonology following. 08/24/2019 Patient with atrial fibrillation with RVR, acute respiratory failure due to COPD exacerbation, diabetes. Less shortness of breath 08/25/2019 Patient with afib with RVR, acute respiratory failure due to COPD exacerbation. She is doing better. Discussed with superintendent concrete mixing plant. Will need placement. marketing effectiveness manager recommends order Covid-19 testing Total time spent on discharge, 36 mins Disposition: [id number] [facility] CERT Core Measure Documentation - Palliative Care Palliative Care/ Comfort Measures: Not Applicable - Core Measures Any of the following diagnoses?: none Exam - Constitutional Vitals: Temp Pulse Resp BP Pulse Ox 98.5 F 117 H 20 150/73 95 08/26/19 07:51 08/26/19 12:19 08/26/19 12:19 08/26/19 12:19 08/26/19 12:19 Plan Diet: low fat, low cholesterol, low salt Special Instructions: home oxygen via ([place] at 2l/min), other (1.Follow up with Physician at [facility] in 2-3 days.2.Follow up with in 1 week, Dr. Posada in 1 week) Additional Instructions: 1.Follow up with Physician at [facility] in 2-3 days. 2.Follow up with Frances Nova in 1 week. 3.Follow up with Dr. Montgomery, cardiology in 1 week. Plan of Treatment: 1.Follow up with Physician at [facility] in 2-3 days. 2.Follow up with Frances Nova in 1 week 3.Follow up with Dr. Montgomery, cardiology in 1 week. Follow up with: PRIMARY CARE, [Primary Care Provider] - 7 Days Prescriptions: Melatonin 1 mg PO QHS #14 tablet
[2019-08-26] MEDS: MONTELUKAST 10 MG TAB PO SCH (17:13)
[2019-08-26 17:52] VITALS: BP 138/57
== END 2019-08-26 18:00 | DRG 308 ==
LOC: ED 19:23 → CC1 21:51 → 4A 08-22 15:08
PROVIDERS: ADMIT Internal Medicine Geriatric Medicine; ATTEND Internal Medicine
DX: I48.0 Paroxysmal atrial fibrillation (principal); J96.21 Acute and chronic respiratory failure with hypoxia; J44.1 Chronic obstructive pulmonary disease with (acute) exacerbation; I48.92 Unspecified atrial flutter; E87.6 Hypokalemia; E83.42 Hypomagnesemia; M19.90 Unspecified osteoarthritis, unspecified site; E11.9 Type 2 diabetes mellitus without complications; I10 Essential (primary) hypertension; E66.9 Obesity, unspecified; D72.829 Elevated white blood cell count, unspecified; G30.9 Alzheimer's disease, unspecified; F02.80 Dementia in other diseases classified elsewhere, unspecified severity, without behavioral disturbance, psychotic disturbance, mood disturbance, and anxiety; Z90.49 Acquired absence of other specified parts of digestive tract; Z68.22 Body mass index [BMI] 22.0-22.9, adult
CPT/HCPCS: 36415; 71045; 80048; 80053; 80061; 82962; 83735; 83880; 84484; 85007; 85025; 85027; 85610; 85730; 93005; 94640; 94760; G0378; J1630; J1815; J2270; J2920; J2930; J3475; J3480; U0003-CS